=== PATIENT | female | born 1955 | race Caucasian/White ===

== ENCOUNTER → 2016-09-12 | Outpatient (CLI) | payer BC ==
[2016-09-12 12:57] LABS: Basophils % (A) 1 %; CH 29.9; CHCM 32.6; Eosinophils # (A) 0.1 k/uL (0-0.7); Eosinophils % (A) 2 %; HCT 38.5 % (34.0-46.0); HDW 2.26; HGB 12.3 gm/dL (11.4-16.0); Luc % (Auto) 2; Lymphocytes % (A) 40 %; MCH 29.5 pg (25.0-35.0); MCV 92.4 fL (80.0-100.0); Mean Platelet Volume 7.4; Monocytes # (A) 0.3 k/uL (0-1.0); Monocytes % (A) 5 %; Neutrophils # (A) 2.6 k/uL (1.3-7.7); Neutrophils % (A) 50 %; RBC 4.17 m/uL (3.80-5.40); RDW 12.1 % (11.5-15.5); WBC 5.1 k/uL (3.8-10.6); WBC (Perox) 5.54
[2016-09-12 13:26] LABS: Anion Gap 10 mmol/L; Blood Urea Nitrogen 7 mg/dL (7-17); Calcium 8.9 mg/dL (8.4-10.2); Carbon Dioxide 29 mmol/L (22-30); Chloride 103 mmol/L (98-107); Glucose 98 mg/dL (74-99); Non-African American GFR(MDRD) >60 (>60 ml/min/1.73 sqM); Sodium 142 mmol/L (137-145)
== END | disposition home or self-care (01) ==
LOC: LABPAT 12:08
PROVIDERS: ATTEND Obstetrics & Gynecology
DX: Z01.812 Encounter for preprocedural laboratory examination (principal)
CPT/HCPCS: 80048; 85025

== ENCOUNTER 2016-09-18 06:10 | Inpatient (IN) | payer BC ==
[2016-09-09 15:30] VITALS: BMI 30.5
--- NOTE | 2016-09-17 20:34 | P.HPOB ---
History of Present Illness H&P Date: 09/17/16 Chief Complaint: Uterine fibroids, pelvic pain This is a 60-year-old female 2 para 1 who presents for total abdominal hysterectomy with bilateral salpingo-oophorectomy secondary to uterine fibroids and pelvic pain. She has experienced intermittent pelvic pain over the last few months. This is described as a dull ache and pressure sensation. The pain is worse in the left lower quadrant. She did have an ultrasound that showed a uterus measuring 8.3 x 6.8 x 5 cm with multiple fibroids, the largest of which was 6 cm. She also does complain of some prolapse symptoms however her urinary leakage has stopped after she started taking Vesicare. Obstetrical history: . History of 1 vaginal delivery and 1 miscarriage. Gynecologic history: No history of sexual transmitted diseases. She is not currently sexual active. Social history: She is . 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 Review of Systems Constitutional: Denies chills, Denies fever Cardiovascular: Denies chest pain, Denies shortness of breath Respiratory: Denies cough Gastrointestinal: Denies abdominal pain, Denies diarrhea, Denies nausea, Denies vomiting Genitourinary: Reports pelvic pain Menstruation: Reports postmenopausal Psychiatric: Reports anxiety, Reports depression Past Medical History Past Medical History: GERD/Reflux, Osteoarthritis (OA) Additional Past Medical History / Comment(s): LARGE FIBROID TUMORS ; hiatal hernia History of Any Multi-Drug Resistant Organisms: None Reported Past Surgical History: Adenoidectomy, Cholecystectomy, Orthopedic Surgery, Tonsillectomy, Tubal Ligation Additional Past Surgical History / Comment(s): HAMMER TOE SURGERY; D&C Additional Past Anesthesia/Blood Transfusion Reaction / Comment(s): SEVERELY CLAUSTROPHIC Past Psychological History: Anxiety, Depression Smoking Status: Never smoker Past Alcohol Use History: Occasional Past Drug Use History: None Reported - Past Family History Mother Family Medical History: No Reported History Medications and Allergies Allergies Allergy/AdvReac Type Severity Reaction Status Date / Time oseltamivir phosphate Allergy Mild HIVES Verified 09/09/16 15:09 [From Tamiflu] vancomycin Allergy SOB AND Verified 09/09/16 15:10 HIVES Exam Osteopathic Statement: *. No significant issues noted on an osteopathic structural exam other than those noted in the History and Physical/Consult. HEENT: Within normal limits Heart: Regular rate and rhythm Lungs: Clear to auscultation bilaterally Abdomen: Soft, tender in left lower quadrant Pelvic exam: Uterus is slightly enlarged and tender on the left side. There is second-degree uterine prolapse. There is also third degree cystocele noted. No adnexal masses are palpated. Extremities: Negative Homans Assessment and Plan (1) Uterine fibroid Status: Acute (2) Pelvic pain Status: Acute Plan: Proceed with total abdominal hysterectomy with bilateral salpingo-oophorectomy. I have discussed the risks, benefits, and alternative therapies for the above- mentioned procedure and for both sedation/anesthesia as well as necessary blood products administration, if indicated, as they pertain to this patient. The patient has indicated her understanding and acceptance of the risks and procedures discussed.
[~2016-09-18 06:10] MED LIST: DEXAMETHASONE SOD PHOSPHATE 10 MG/ML 1 ML VIAL IV ONE; LIDOCAINE 1% 20 ML VIAL (10MG/ML) FOR IV START INTRADERMA PRN; MIDAZOLAM 2 MG/2 ML VIAL IV PRN; ONDANSETRON 4 MG/2 ML VIAL IVP ONE; SCOPOLAMINE 1.5MG/72HR PATCH TRANSDERM ONE; ceFAZolin 2 GM in SODIUM CHLORIDE 0.9% 100 ML IVPB ONE
[2016-09-18] MEDS: LACTATED RINGERS 1,000 ML IV SCH ×3 (07:02→21:27)
[2016-09-18] MEDS ORDERED: ROCURONIUM BROMIDE 10 MG/ML 10 ML VIAL IV ONE (07:28)
[2016-09-18] MEDS ORDERED: fentaNYL (PF) 50 MCG/ML 2 ML AMP ONE (07:28)
[2016-09-18] MEDS ORDERED: SUCCINYLCHOLINE CHLORIDE 100 MG/5 ML SYR IV ONE (07:28)
[2016-09-18] MEDS ORDERED: NEOSTIGMINE 1 MG/ML 10 ML VIAL ONE (07:28)
[2016-09-18] MEDS ORDERED: MIDAZOLAM 2 MG/2 ML VIAL ONE (07:28)
[2016-09-18] MEDS ORDERED: HYDROmorphone (PF) 1 MG/ML ONE (07:28)
[2016-09-18] MEDS ORDERED: KETOROLAC 30 MG/ML 1 ML VIAL ONE (07:28)
[2016-09-18] MEDS ORDERED: PROPOFOL 10 MG/ML 20 ML VIAL IV ONE (07:28)
[2016-09-18] MEDS ORDERED: ONDANSETRON 4 MG/2 ML VIAL ONE (07:28)
[2016-09-18] MEDS ORDERED: GLYCOPYRROLATE 0.2 MG/ML 2 ML VIAL ONE (07:28)
[2016-09-18] MEDS ORDERED: LACTATED RINGERS 1,000 ML IV ONE (08:07)
--- NOTE | 2016-09-18 08:39 | P.OP ---
Date of Procedure: 09/18/16 Preoperative Diagnosis: Pelvic pain, uterine fibroids Postoperative Diagnosis: Same Procedure(s) Performed: Total abdominal hysterectomy with bilateral salpingo-oophorectomy Anesthesia: AYLEEN Surgeon: Eileen Chacon Medical Specialist #1: Aman Ureña Estimated Blood Loss (ml): 75 Pathology: other (Uterus with cervix, bilateral tubes and ovaries) Condition: stable Disposition: floor Indications for Procedure: This is a 60-year-old female 2 para 1 who presents for total abdominal hysterectomy with bilateral salpingo-oophorectomy secondary to uterine fibroids and pelvic pain. She has experienced intermittent pelvic pain over the last few months. This is described as a dull ache and pressure sensation. The pain is worse in the left lower quadrant. She did have an ultrasound that showed a uterus measuring 8.3 x 6.8 x 5 cm with multiple fibroids, the largest of which was 6 cm. She also does complain of some prolapse symptoms however her urinary leakage has stopped after she started taking Vesicare. Operative Findings: Small atrophic ovaries are noted bilaterally. There are multiple uterine fibroids posteriorly. Description of Procedure: The patient is taken to the operating room where she is placed in the dorsal supine position. She is prepped and draped in the normal sterile fashion including Liu catheter insertion and vaginal prep. A Pfannenstiel skin incision is made with a scalpel. A second knife was used to carry the incision down to the underlying layer of fascia. The fascia was nicked in the midline with a scalpel and then extended laterally bilaterally with Busch scissors. The superior aspect of the fascial incision was grasped with Kayla clamps, elevated off the underlying rectus muscle in the midline and then cut with Busch scissors. The inferior aspect of the fascial incision was grasped with Kayla clamps, elevated off the underlying rectus muscle in the midline and then cut with Busch scissors. Next the peritoneum was identified and entered sharply with Busch scissors. It is extended superiorly and in fairly with Metzenbaum scissors with good visualization of underlying structures. Next the Pk retractor is placed in the bladder blade was inserted. The bowels were packed with a 3 yard laparotomy sponge. Next the uterus is brought up incision and the corneal regions are grasped with Meri clamps on both sides. The infundibulopelvic ligament was clamped on either side with a Echo clamp, cut with Busch scissors, and sutured with 0 Vicryl suture in Echo transfixion stitches. The remaining uterine ovarian ligament and round ligament was clamped on either side with a Echo clamp, cut with Busch scissors, and sutured with 0 Vicryl suture in Echo transfixion stitches. The vesicouterine peritoneum was sharply dissected away from the bladder with Metzenbaum scissors and pushed inferiorly. The uterine arteries are clamped on either side with a Echo clamp. The uterine arteries are then cut with Busch scissors, and sutured with 0 Vicryl suture in Echo transfixion stitches. Next the cardinal ligaments were clamped on either side with Echo clamp, cut with Busch scissors , and sutured with 0 Vicryl suture in Echo transfixion stitches. The uterosacral ligaments are clamped on either side with Echo clamps, cut with Busch scissors, and sutured with 0 Vicryl suture in Echo transfixion stitches on either side. The edges of the vaginal cuff were clamped on either side with a Echo clamp, cut with Busch scissors, and sutured with 0 Vicryl suture in Echo transfixion stitches and held on either side. The vaginal mucosa was then cut just below the level of the cervix and the specimen is removed from the field. The edges of the vaginal cuff were held with Kayla clamps. Next the previously held corners of each side of the vaginal cuff were then whipstitched along the connective tissue on either side and brought through the corner of the cuff and tied. Next the vaginal cuff was sutured with 0 Vicryl suture in a running locked fashion. Good hemostasis was noted. Copious irrigation is carried out with warm saline. Excellent hemostasis is noted. All sponges are removed from the abdomen and sponge counts are correct. The peritoneum is then closed with 0 Vicryl suture in a running fashion. The muscle was then reapproximated with 0 Vicryl suture in interrupted fashion. The fascia layer is then closed with 0 PDS suture in a running fashion with the knots buried on either side and in the midline. Next the subcutaneous tissues closed with 2-0 Vicryl suture in a running fashion. The skin is closed with nicole. All sponge and needle counts are correct and the patient is taken to recovery room in stable condition.
[2016-09-18] MEDS: HYDROmorphone 1 MG/ML 1 ML SYRINGE IVP PRN ×3 (09:00→09:35)
[2016-09-18] MEDS ORDERED: HYDROcodone/APAP 5-325MG 1 EACH TAB PO PRN ×2 (09:51→10:06)
[2016-09-18] MEDS ORDERED: SIMETHICONE 80 MG CHEWABLE PO PRN (09:51)
[2016-09-18] MEDS ORDERED: METOCLOPRAMIDE 5 MG/ML 2 ML VIAL IVP PRN (09:51)
[2016-09-18] MEDS ORDERED: diphenhydrAMINE 50 MG/ML 1 ML VIAL IVP PRN (09:51)
[2016-09-18] MEDS ORDERED: NALOXONE 0.4 MG/ML 1 ML VIAL IV PRN (09:51)
[2016-09-18] MEDS: HYDROmorphone PCA 5 MG/25 ML SYRINGE IV PRN ×2 (11:09→22:17)
[2016-09-18] MEDS: SENNOSIDES-DOCUSATE SODIUM 1 EACH TAB PO SCH ×2 (12:13→21:23)
[2016-09-18] MEDS: KETOROLAC 30 MG/ML 1 ML VIAL IVP PRN ×2 (15:11→21:23)
[2016-09-18] MEDS ORDERED: LACTATED RINGERS 500 ML IV SCH (19:00)
[2016-09-18] MEDS: ESCITALOPRAM 20 MG TAB PO SCH (21:27)
[2016-09-19] MEDS: KETOROLAC 30 MG/ML 1 ML VIAL IVP PRN ×3 (04:02→18:52)
[2016-09-19] MEDS: ONDANSETRON 4 MG/2 ML VIAL IVP PRN ×2 (04:03→21:21)
[2016-09-19] MEDS: LACTATED RINGERS 1,000 ML IV SCH ×4 (07:21→22:16)
[2016-09-19] MEDS ORDERED: ACETAMINOPHEN TAB 325 MG TAB PO PRN (07:29)
[2016-09-19] MEDS: SENNOSIDES-DOCUSATE SODIUM 1 EACH TAB PO SCH ×2 (08:15→21:23)
[2016-09-19] MEDS: PANTOPRAZOLE 40 MG TABLET PO SCH (08:15)
--- NOTE | 2016-09-19 08:42 | P.PN ---
Subjective Principal diagnosis: Status post total abdominal hysterectomy with bilateral salpingo-oophorectomy postoperative day #1 Patient complains of some fatigue. She has been up in the room couple times but not ambulating the halls yet. She is passing some flatus but no bowel movement yet. Her catheter was just removed this morning and she has not urinated yet. She did have some decreased urine output earlier in the day yesterday that was resolved with fluid bolus. Pain is fairly well controlled with her AUTO EMISSIONS TECHNICIAN pump. Minimal vaginal bleeding is noted. Objective - Vital Signs Vital signs: Vital Signs Temp 98.3 F 09/19/16 08:00 Pulse 68 09/19/16 08:00 Resp 16 09/19/16 08:00 BP 99/59 09/19/16 08:00 Pulse Ox 93 L 09/19/16 08:00 Intake & Output 09/18/16 09/19/16 09/19/16 18:59 06:59 18:59 Intake Total 2140 Output Total 275 450 Balance 1865 -450 Weight 88.451 kg Intake: IV 1800 Oral 340 Output: Urine 200 450 Uretheral (Liu) 450 Estimated Blood Loss 75 Other: Voiding Method Indwelling Catheter Indwelling Catheter Toilet - Constitutional General appearance: Present: no acute distress - Gastrointestinal Gastrointestinal Comment(s): Incision is clean dry and intact with nicole in place. General gastrointestinal: Present: normal bowel sounds, soft. Absent: tenderness - Musculoskeletal Musculoskeletal Comment(s): Extremities show negative Homans. Assessment and Plan (1) Uterine fibroid Status: Acute (2) Pelvic pain Status: Acute Plan: Impression is status post LUZ/BSO postoperative day #1. Plan is to encourage ambulation and fluid intake. AUTO EMISSIONS TECHNICIAN will be discontinued later today and she will be switched [place]. She will continue Toradol while she still has IV access.
[2016-09-19 09:02] LABS: Basophils % (A) 0 %; CH 29.9; CHCM 32.2; Eosinophils % (A) 0 %; Luc # (Auto) 0.06; Luc % (Auto) 1; Lymphocytes # (A) 1.6 k/uL (1.0-4.8); Lymphocytes % (A) 20 %; MCH 30.1 pg (25.0-35.0); MCHC 32.3 g/dL (31.0-37.0); MCV 93.2 fL (80.0-100.0); Mean Platelet Volume 7.5; Monocytes # (A) 0.4 k/uL (0-1.0); Monocytes % (A) 5 %; Neutrophils % (A) 74 %; RBC 3.22 m/uL (3.80-5.40); RDW 12.1 % (11.5-15.5); WBC 8.1 k/uL (3.8-10.6); WBC (Perox) 8.78
[2016-09-19 09:04] LABS: HGB 9.7 gm/dL (11.4-16.0)
[2016-09-19] MEDS: HYDROcodone/APAP 5-325MG 1 EACH TAB PO PRN (18:53)
[2016-09-19] MEDS: ESCITALOPRAM 20 MG TAB PO SCH (21:23)
[2016-09-20] MEDS: HYDROcodone/APAP 5-325MG 1 EACH TAB PO PRN ×4 (03:43→21:38)
[2016-09-20] MEDS: KETOROLAC 30 MG/ML 1 ML VIAL IVP PRN (03:44)
[2016-09-20] MEDS: LACTATED RINGERS 1,000 ML IV SCH ×2 (04:16→20:46)
--- NOTE | 2016-09-20 06:50 | P.PN ---
Progress Note - Text Postoperative day #2. Patient is resting without complaints. Vital signs are stable, she is afebrile. Urine output is excellent. Incision is intact and dry. CBC was reviewed admitted yesterday by Dr. Chacon and appears normal for postop hysterectomy. Patient is tolerating just soft foods and is having adequate pain control. Patient is urinating without difficulty and ambulating. Plan today is to allow the patient to shower, advanced to a regular diet, and encourage more ambulation. Patient wishes to be discharged home tomorrow.
[2016-09-20] MEDS: PANTOPRAZOLE 40 MG TABLET PO SCH (09:48)
[2016-09-20] MEDS: SENNOSIDES-DOCUSATE SODIUM 1 EACH TAB PO SCH ×2 (09:48→21:27)
[2016-09-20] MEDS ORDERED: KETOROLAC 30 MG/ML 1 ML VIAL IVP PRN (13:42)
[2016-09-20] MEDS: ESCITALOPRAM 20 MG TAB PO SCH (21:27)
[2016-09-20 23:21] VITALS: PULSE 68; RESP 16
[2016-09-21] MEDS: LACTATED RINGERS 1,000 ML IV SCH (04:40)
[2016-09-21] MEDS: HYDROcodone/APAP 5-325MG 1 EACH TAB PO PRN ×2 (04:48→10:47)
[2016-09-21] MEDS: PANTOPRAZOLE 40 MG TABLET PO SCH (07:33)
[2016-09-21] MEDS: SENNOSIDES-DOCUSATE SODIUM 1 EACH TAB PO SCH (07:33)
--- NOTE | 2016-09-21 07:37 | P.PN ---
Progress Note - Text Postoperative day #3. Patient is resting without complaints. Vital signs are stable and she is afebrile. Incision is intact and dry. Patient is tolerating regular diet, ambulating, urinating without difficulty. Patient is adequate pain control. My impression is a normal postoperative course. Plan is to continue routine postoperative care and discharge home today.
--- NOTE | 2016-09-21 07:39 | P.DS ---
Providers Date of admission: 09/18/16 06:10 Expected date of discharge: 09/21/16 Attending physician: Eileen Chacon Primary care physician: Stated None - Discharge Diagnosis(es) (1) Uterine fibroid Current Visit: Yes Status: Acute Hospital Course: Please see dictated H&P per Dr. Chacon on this patient's admission. Brief summary this is a pleasant 60-year-old who is admitted to the hospital for total abdominal hysterectomy and bilateral salpingo-oophorectomy secondary to pelvic pain and uterine fibroids. Patient is admitted has above-named surgery. By postoperative 3 patient's felt be stable for discharge home follow up with Dr. Chacon in 1 week. Procedures: Total abdominal hysterectomy and bilateral partial salpingectomy. Patient Condition at Discharge: Good Plan - Discharge Summary New Discharge Prescriptions: HYDROcodone/APAP 5-325MG [[place] 5-325] 1 each PO Q4HR PRN #30 tab PRN Reason: Pain Discharge Medication List Ondansetron Odt [Zofran ODT] 4 mg PO Q8HR PRN #10 tab 12/26/15 [Rx] Escitalopram [Lexapro] 20 mg PO HS 09/18/16 [History] LORazepam [Ativan] 1 mg PO DAILY PRN 09/18/16 [History] Omeprazole [PriLOSEC] 20 mg PO DAILY 09/18/16 [History] HYDROcodone/APAP 5-325MG [[place] 5-325] 1 each PO Q4HR PRN #30 tab 09/19/16 [Rx] Follow up Appointment(s)/Referral(s): Eileen Chacon DO [Doctor of Osteopathic Medicine] - 1 Week Activity/Diet/Wound Care/Special Instructions: Activity as tolerated. No heavy lifting. May shower, but no tub baths for 1 week. No intercourse. Diet as tolerated. Discharge Disposition: HOME SELF-CARE
[2016-09-21 08:17] VITALS: BP 113/58; TEMP 98.2
== END 2016-09-21 14:43 | disposition home or self-care (01) | DRG 743 ==
LOC: 2ORMAIN 06:10 → 6PED 08:31
PROVIDERS: ADMIT Obstetrics & Gynecology; ATTEND Obstetrics & Gynecology
PROC: 0UT20ZZ Resection of Bilateral Ovaries, Open Approach (ICD-10-PCS; principal; 2016-09-18 07:30)
PROC: 0UT70ZZ Resection of Bilateral Fallopian Tubes, Open Approach (ICD-10-PCS; principal; 2016-09-18 07:30)
PROC: 0UTC0ZZ Resection of Cervix, Open Approach (ICD-10-PCS; principal; 2016-09-18 07:30)
PROC: 0UT90ZZ Resection of Uterus, Open Approach (ICD-10-PCS; principal; 2016-09-18 07:30)
DX: D25.9 Leiomyoma of uterus, unspecified (principal); F32.9 Major depressive disorder, single episode, unspecified; F41.9 Anxiety disorder, unspecified; K21.9 Gastro-esophageal reflux disease without esophagitis; N83.311 Acquired atrophy of right ovary; N83.312 Acquired atrophy of left ovary; Z79.899 Other long term (current) drug therapy
CPT/HCPCS: 80048; 85025; 86850; 86900; 86901; 88307

== ENCOUNTER 2018-01-19 03:58 | Emergency (ER) | payer BC, OTHER ==
[2018-01-19 04:34] LABS: Basophils % (A) 1 %; Eosinophils # (A) 0.1 k/uL (0-0.7); Eosinophils % (A) 2 %; HCT 33.1 % (34.0-46.0); HGB 10.9 gm/dL (11.4-16.0); Lymphocytes # (A) 1.5 k/uL (1.0-4.8); Lymphocytes % (A) 20 %; MCH 29.9 pg (25.0-35.0); MCV 90.4 fL (80.0-100.0); Mean Platelet Volume 7.6; Monocytes # (A) 0.5 k/uL (0-1.0); Monocytes % (A) 7 %; Neutrophils # (A) 5.3 k/uL (1.3-7.7); Neutrophils % (A) 69 %; Platelet Count 279 k/uL (150-450); RBC 3.66 m/uL (3.80-5.40); RDW 12.2 % (11.5-15.5); WBC 7.6 k/uL (3.8-10.6)
[2018-01-19 04:45] LABS: ALT 133 U/L (9-52); AST 284 U/L (14-36); Albumin 3.8 g/dL (3.5-5.0); Alkaline Phosphatase 118 U/L (38-126); Amylase 47 U/L (30-110); Anion Gap 11 mmol/L; Blood Urea Nitrogen 15 mg/dL (7-17); Calcium 9.1 mg/dL (8.4-10.2); Carbon Dioxide 28 mmol/L (22-30); Chloride 106 mmol/L (98-107); Glucose 98 mg/dL (74-99); Lipase 133 U/L (23-300); Potassium 3.7 mmol/L (3.5-5.1); Sodium 145 mmol/L (137-145); Total Protein 7.8 g/dL (6.3-8.2)
[2018-01-19 04:53] LABS: Creatine Kinase 529 U/L (30-135)
[2018-01-19] MEDS ORDERED: ONDANSETRON 4 MG/2 ML VIAL IVP STA (04:59)
[2018-01-19 05:07] LABS: Creatine Kinase MB 5.2 ng/mL (0.0-2.4); Troponin I <0.012 ng/mL (0.000-0.034)
[2018-01-19 05:30] LABS: Appearance,Urine Cloudy (Clear); Bilirubin,Urine Negative (Negative); Blood,Urine Large (Negative); Color,Urine Yellow; Glucose,Urine (UA) Negative (Negative); Ketones,Urine Negative (Negative); Leukocyte Esterase,Urine Moderate (Negative); Mucus,Urine Many /hpf; Nitrite,Urine Negative (Negative); Protein,Urine 1+ (Negative); RBC,Urine 13 /hpf (0-5); Specific Gravity,Urine 1.018 (1.001-1.035); Squamous Epithelial Cell,Urine 8 /hpf (0-4); WBC,Urine 14 /hpf (0-5)
--- NOTE | 2018-01-19 05:36 | XR ---
EXAM: XR Abdomen, 2 Views CLINICAL HISTORY: Pain. TECHNIQUE: Frontal upright view of the abdomen/pelvis. Two images were obtained. COMPARISON: No relevant prior studies available. FINDINGS: Intraperitoneal space: No evidence of free air. Gastrointestinal tract: Nonspecific and nonobstructive bowel gas pattern. Bones/joints: Osseous structures appear intact. Other: Cholecystectomy clips in the right upper quadrant. IMPRESSION: 1. Nonspecific and nonobstructive bowel gas pattern. 2. Surgical clips in the right upper quadrant compatible with cholecystectomy.
[2018-01-19] MEDS ORDERED: MORPHINE SULFATE 4 MG/ML SYRINGE IV STA ×2 (06:17→09:04)
[2018-01-19] MEDS ORDERED: MAG HYDROX/AL HYDROX/SIMETH 30 ML, HYOSCYAMINE ELIXIR 10 ML, CIMETIDINE HCL 300 MG, LID... PO STA ×4 (06:17)
--- NOTE | 2018-01-19 06:20 | ED ---
Abdominal Pain HPI - General Chief Complaint: Abdominal Pain Stated Complaint: Abdominal Pain Time Seen by Provider: 01/19/18 04:58 Source: patient Mode of arrival: EMS Limitations: no limitations - History of Present Illness Initial Comments: This patient is a 62-year-old woman with just under one week of epigastric abdominal pain that she is describing as aching and cramping. She also has had a number of episodes of nausea and vomiting. Patient states that the pain seemed to be getting progressively worse. Tonight it became severe. She has not discovered any relieving factors but states that its sometimes worse with food and has limited her intake. MD Complaint: abdominal pain Onset/Timin -: days(s) Location: epigastric Radiation: none Migration to: no migration Severity: moderate Quality: cramping Consistency: constant Improves With: nothing Worsens With: nothing Associated Symptoms: nausea, vomiting - Related Data Home Medications Medication Instructions Recorded Confirmed Escitalopram [Lexapro] 20 mg PO HS 09/18/16 09/18/16 LORazepam [Ativan] 1 mg PO DAILY PRN 09/18/16 09/18/16 Omeprazole [PriLOSEC] 20 mg PO DAILY 09/18/16 09/18/16 Previous Rx's Medication Instructions Recorded Ondansetron Odt [Zofran ODT] 4 mg PO Q8HR PRN #10 tab 12/26/15 HYDROcodone/APAP 5-325MG [[place] 1 each PO Q4HR PRN #30 tab 09/19/16 5-325] Dicyclomine [Bentyl] 20 mg PO QID #15 tablet 01/19/18 Famotidine [Pepcid] 20 mg PO BID #14 tablet 01/19/18 Nitrofurantoin Monohyd/M-Cryst 100 mg PO Q12HR #6 cap 01/19/18 [Macrobid] Ondansetron Odt [Zofran ODT] 4 mg PO Q8HR PRN #10 tab 01/19/18 Allergies Allergy/AdvReac Type Severity Reaction Status Date / Time oseltamivir phosphate Allergy Mild HIVES Verified 01/19/18 07:29 [From Tamiflu] vancomycin Allergy SOB AND Verified 01/19/18 07:29 HIVES Review of Systems ROS Statement: Those systems with pertinent positive or pertinent negative responses have been documented in the HPI. ROS Other: All systems not noted in ROS Statement are negative. Constitutional: Denies: fever, chills Respiratory: Denies: cough, dyspnea Cardiovascular: Denies: chest pain, palpitations Gastrointestinal: Reports: abdominal pain, nausea, vomiting. Denies: diarrhea, constipation Genitourinary: Denies: dysuria, hematuria Musculoskeletal: Denies: back pain Skin: Denies: rash Neurological: Denies: headache, weakness, numbness Past Medical History Past Medical History: Cancer Additional Past Medical History / Comment(s): LARGE FIBROID TUMORS History of Any Multi-Drug Resistant Organisms: None Reported Past Surgical History: Cholecystectomy Additional Past Surgical History / Comment(s): HAMMER TOE SURGERY Additional Past Anesthesia/Blood Transfusion Reaction / Comment(s): SEVERELY CLAUSTROPHIC Past Psychological History: Anxiety, Depression Smoking Status: Never smoker Past Alcohol Use History: None Reported Past Drug Use History: None Reported - Past Family History Mother Family Medical History: No Reported History Father Family Medical History: No Reported History General Exam Limitations: no limitations General appearance: alert, in no apparent distress Head exam: Present: atraumatic, normocephalic Eye exam: Present: normal appearance. Absent: scleral icterus, conjunctival injection Neck exam: Present: normal inspection Respiratory exam: Present: normal lung sounds bilaterally. Absent: respiratory distress, wheezes, rales, rhonchi, stridor Cardiovascular Exam: Present: regular rate, normal rhythm, normal heart sounds. Absent: systolic murmur, diastolic murmur, rubs, gallop GI/Abdominal exam: Present: soft, normal bowel sounds. Absent: distended, tenderness, guarding, rebound, rigid, mass, pulsatile mass, hernia Extremities exam: Present: normal inspection, normal capillary refill. Absent: pedal edema, calf tenderness Back exam: Present: normal inspection. Absent: CVA tenderness (R), CVA tenderness (L) Neurological exam: Present: alert Skin exam: Present: warm, dry, intact, normal color. Absent: rash Course Vital Signs 01/19/18 01/19/18 01/19/18 04:00 05:48 06:47 Temperature 99.2 F Pulse Rate 91 76 66 Respiratory 18 18 18 Rate Blood Pressure 212/95 190/95 162/80 O2 Sat by Pulse 95 97 94 L Oximetry 01/19/18 07:19 Temperature 98.0 F Pulse Rate 64 Respiratory 16 Rate Blood Pressure 168/82 O2 Sat by Pulse 94 L Oximetry Medical Decision Making - Lab Data Result diagrams: 01/19/18 04:15 01/19/18 04:15 Lab Results 01/19/18 01/19/18 01/19/18 Range/Units 04:15 04:15 04:15 WBC 7.6 (3.8-10.6) k/uL RBC 3.66 L (3.80-5.40) m/uL Hgb 10.9 L (11.4-16.0) gm/dL Hct 33.1 L (34.0-46.0) % MCV 90.4 (80.0-100.0) fL MCH 29.9 (25.0-35.0) pg MCHC 33.0 (31.0-37.0) g/dL RDW 12.2 (11.5-15.5) % Plt Count 279 (150-450) k/uL Neutrophils % 69 % Lymphocytes % 20 % Monocytes % 7 % Eosinophils % 2 % Basophils % 1 % Neutrophils # 5.3 (1.3-7.7) k/uL Lymphocytes # 1.5 (1.0-4.8) k/uL Monocytes # 0.5 (0-1.0) k/uL Eosinophils # 0.1 (0-0.7) k/uL Basophils # 0.0 (0-0.2) k/uL Sodium 145 (137-145) mmol/L Potassium 3.7 (3.5-5.1) mmol/L Chloride 106 (98-107) mmol/L Carbon Dioxide 28 (22-30) mmol/L Anion Gap 11 mmol/L BUN 15 (7-17) mg/dL Creatinine 0.78 (0.52-1.04) mg/dL Est GFR (CKD-EPI)AfAm >90 (>60 ml/min/1.73 sqM) Est GFR (CKD-EPI)NonAf 81 (>60 ml/min/1.73 sqM) Glucose 98 (74-99) mg/dL Calcium 9.1 (8.4-10.2) mg/dL Total Bilirubin 1.0 (0.2-1.3) mg/dL AST 284 H (14-36) U/L ALT 133 H (9-52) U/L Alkaline Phosphatase 118 (38-126) U/L Total Creatine Kinase 529 H (30-135) U/L CK-MB (CK-2) 5.2 H* (0.0-2.4) ng/mL CK-MB (CK-2) Rel Index 1.0 Troponin I <0.012 (0.000-0.034) ng/mL Total Protein 7.8 (6.3-8.2) g/dL Albumin 3.8 (3.5-5.0) g/dL Amylase 47 (30-110) U/L Lipase 133 (23-300) U/L Urine Color Urine Appearance (Clear) Urine pH (5.0-8.0) Ur Specific [place] (1.001-1.035) Urine Protein (Negative) Urine Glucose (UA) (Negative) Urine Ketones (Negative) Urine Blood (Negative) Urine Nitrite (Negative) Urine Bilirubin (Negative) Urine Urobilinogen (<2.0) mg/dL Ur Leukocyte Esterase (Negative) Urine RBC (0-5) /hpf Urine WBC (0-5) /hpf Ur Squamous Epith Cells (0-4) /hpf Urine Mucus (None) /hpf 01/19/18 Range/Units 05:13 WBC (3.8-10.6) k/uL RBC (3.80-5.40) m/uL Hgb (11.4-16.0) gm/dL Hct (34.0-46.0) % MCV (80.0-100.0) fL MCH (25.0-35.0) pg MCHC (31.0-37.0) g/dL RDW (11.5-15.5) % Plt Count (150-450) k/uL Neutrophils % % Lymphocytes % % Monocytes % % Eosinophils % % Basophils % % Neutrophils # (1.3-7.7) k/uL Lymphocytes # (1.0-4.8) k/uL Monocytes # (0-1.0) k/uL Eosinophils # (0-0.7) k/uL Basophils # (0-0.2) k/uL Sodium (137-145) mmol/L Potassium (3.5-5.1) mmol/L Chloride (98-107) mmol/L Carbon Dioxide (22-30) mmol/L Anion Gap mmol/L BUN (7-17) mg/dL Creatinine (0.52-1.04) mg/dL Est GFR (CKD-EPI)AfAm (>60 ml/min/1.73 sqM) Est GFR (CKD-EPI)NonAf (>60 ml/min/1.73 sqM) Glucose (74-99) mg/dL Calcium (8.4-10.2) mg/dL Total Bilirubin (0.2-1.3) mg/dL AST (14-36) U/L ALT (9-52) U/L Alkaline Phosphatase (38-126) U/L Total Creatine Kinase (30-135) U/L CK-MB (CK-2) (0.0-2.4) ng/mL CK-MB (CK-2) Rel Index Troponin I (0.000-0.034) ng/mL Total Protein (6.3-8.2) g/dL Albumin (3.5-5.0) g/dL Amylase (30-110) U/L Lipase (23-300) U/L Urine Color Yellow Urine Appearance Cloudy H (Clear) Urine pH 6.0 (5.0-8.0) Ur Specific [place] 1.018 (1.001-1.035) Urine Protein 1+ H (Negative) Urine Glucose (UA) Negative (Negative) Urine Ketones Negative (Negative) Urine Blood Large H (Negative) Urine Nitrite Negative (Negative) Urine Bilirubin Negative (Negative) Urine Urobilinogen 2.0 (<2.0) mg/dL Ur Leukocyte Esterase Moderate H (Negative) Urine RBC 13 H (0-5) /hpf Urine WBC 14 H (0-5) /hpf Ur Squamous Epith Cells 8 H (0-4) /hpf Urine Mucus Many H (None) /hpf - EKG Data -: EKG Interpreted by Me EKG shows normal: sinus rhythm, axis (Normal), intervals (Normal), QRS complexes (Normal), ST-T waves (Normal) Rate: normal (Rate 86 bpm) Interpretation: normal EKG Disposition Clinical Impression: Abdominal pain Disposition: HOME SELF-CARE Condition: Good Instructions: Abdominal Pain (ED) Prescriptions: Dicyclomine [Bentyl] 20 mg PO QID #15 tablet Famotidine [Pepcid] 20 mg PO BID #14 tablet Nitrofurantoin Monohyd/M-Cryst [Macrobid] 100 mg PO Q12HR #6 cap Ondansetron Odt [Zofran ODT] 4 mg PO Q8HR PRN #10 tab PRN Reason: Nausea Is patient prescribed a controlled substance at d/c from ED?: No Referrals: Domenico Cruz MD [Primary Care Provider] - 1-2 days
[2018-01-19 07:35] VITALS: TEMP 98
[2018-01-19] MEDS ORDERED: RX INFO: IV CONTRAST WAS GIVEN 1 EACH MISC MISCELLANE PRN (08:19)
--- NOTE | 2018-01-19 09:11 | CT ---
EXAMINATION TYPE: CT abdomen pelvis w con DATE OF EXAM: 01/19/2018 HISTORY: Nausea vomiting and epigastric pain for over 5 days. Possible history of multiple myeloma. CT DLP: 1727mGycm Automated Exposure Control for Dose Reduction was Utilized. CONTRAST: CT scan of the abdomen and pelvis is performed without oral but with IV Contrast, patient injected wi th 100 mL of Isovue 300. COMPARISON: CT abdomen and pelvis December 26, 2015 FINDINGS: LUNG BASES: Dependent atelectasis in both bases is present. LIVER/GB: Cholecystectomy clips are redemonstrated. There is new mild periportal edema which is nonsp ecific finding. PANCREAS: No significant abnormality is seen. SPLEEN: No significant abnormality is seen. ADRENALS: No significant abnormality is seen. KIDNEYS: There is 1.0 cm lesion laterally lower pole level right kidney seen best series 7 image 44 t oo small to further characterize per presumed benign. BOWEL: Evaluation bowel slightly suboptimal secondary to lack of enteric contrast. Stable small hiata l hernia. Stomach is poorly distended and thus suboptimally evaluated. There is no suspicious small o r large bowel dilatation. There are scattered diverticula throughout the colon most prominent in the sigmoid colon. There is no CT evidence for acute diverticulitis. UTERUS/ADNEXA: Uterus is now surgically absent. LYMPH NODES: No greater than 1cm abdominal or pelvic lymph nodes are appreciated. OSSEOUS STRUCTURES: Underlying dextroconvex scoliosis centered at L2 vertebra is redemonstrated. Ther e is facet arthropathy lower lumbar levels. OTHER: There is mild calcific plaque of aorta extending into branch vessels. IMPRESSION: No bowel obstruction is seen. No significant acute finding is identified to account for p atient's symptoms. Interval hysterectomy changes noted.
[2018-01-19 10:03] VITALS: BP 174/84; PULSE 74; RESP 18
== END 2018-01-19 10:01 | disposition home or self-care (01) ==
LOC: EC 03:58
DX: R10.13 Epigastric pain (principal); R11.2 Nausea with vomiting, unspecified; F32.9 Major depressive disorder, single episode, unspecified; F41.9 Anxiety disorder, unspecified; Z79.899 Other long term (current) drug therapy; Z88.1 Allergy status to other antibiotic agents; Z88.8 Allergy status to other drugs, medicaments and biological substances; Z90.49 Acquired absence of other specified parts of digestive tract
CPT/HCPCS: 36415; 93005; 80053; 82150; 82550; 82553; 83690; 84484; 85025; 81001; 74018; 74177; 99285; 96374; 96375; 96376; J2270; J2405; Q9967

== ENCOUNTER 2018-01-19 19:49 | Inpatient (IN) | payer OTHER ==
[2018-01-19] MEDS ORDERED: MORPHINE SULFATE 4 MG/ML SYRINGE IV STA (21:04)
[2018-01-19] MEDS ORDERED: KETOROLAC 30 MG/ML 1 ML VIAL IVP STA (21:04)
[2018-01-19] MEDS ORDERED: ONDANSETRON 4 MG/2 ML VIAL IVP STA (21:04)
[2018-01-19] MEDS ORDERED: SODIUM CHLORIDE 0.9% 1,000 ML IV STA ×2 (21:04)
[2018-01-19 21:37] LABS: Basophils # (A) 0.1 k/uL (0-0.2); Basophils % (A) 1 %; Eosinophils # (A) 0.1 k/uL (0-0.7); Eosinophils % (A) 1 %; HCT 33.9 % (34.0-46.0); HGB 11.2 gm/dL (11.4-16.0); Lymphocytes # (A) 0.9 k/uL (1.0-4.8); Lymphocytes % (A) 12 %; MCH 29.9 pg (25.0-35.0); MCV 90.5 fL (80.0-100.0); Mean Platelet Volume 7.1; Monocytes # (A) 0.4 k/uL (0-1.0); Monocytes % (A) 6 %; Neutrophils % (A) 80 %; Platelet Count 271 k/uL (150-450); RBC 3.75 m/uL (3.80-5.40); RDW 12.2 % (11.5-15.5); WBC 7.5 k/uL (3.8-10.6)
--- NOTE | 2018-01-19 21:38 | ED ---
Abdominal Pain HPI - General Chief Complaint: Abdominal Pain Stated Complaint: abdominal pain-revisit Time Seen by Provider: 01/19/18 20:43 Source: patient, RN notes reviewed, old records reviewed Mode of arrival: wheelchair Limitations: no limitations - History of Present Illness Initial Comments: This patient's a 62-year-old female presents to the emergency Department chief complaint of epigastric abdominal pain. She was evaluated early this morning. Patient reports that she's was having episodes of nausea and vomiting. Also reported some green diarrhea. Patient states that the pain is mainly in the right upper quadrant. History of cholecystectomy. She states that she has no history of sick contacts. No recent antibiotic use. - Related Data Home Medications Medication Instructions Recorded Confirmed LORazepam [Ativan] 1 mg PO TID 09/18/16 01/19/18 Omeprazole [PriLOSEC] 20 mg PO DAILY 09/18/16 01/19/18 Ergocalciferol (Vitamin D2) 1 cap PO Q7D 01/19/18 01/19/18 [Vitamin D2] Sertraline [Zoloft] 200 mg PO DAILY 01/19/18 01/19/18 Previous Rx's Medication Instructions Recorded Dicyclomine [Bentyl] 20 mg PO QID #15 tablet 01/19/18 Famotidine [Pepcid] 20 mg PO BID #14 tablet 01/19/18 Nitrofurantoin Monohyd/M-Cryst 100 mg PO Q12HR #6 cap 01/19/18 [Macrobid] Ondansetron Odt [Zofran ODT] 4 mg PO Q8HR PRN #10 tab 01/19/18 Allergies Allergy/AdvReac Type Severity Reaction Status Date / Time oseltamivir phosphate Allergy Mild HIVES Verified 01/19/18 20:47 [From Tamiflu] vancomycin Allergy SOB AND Verified 01/19/18 20:47 HIVES Review of Systems ROS Statement: Those systems with pertinent positive or pertinent negative responses have been documented in the HPI. ROS Other: All systems not noted in ROS Statement are negative. Past Medical History Past Medical History: Cancer Additional Past Medical History / Comment(s): LARGE FIBROID TUMORS History of Any Multi-Drug Resistant Organisms: None Reported Past Surgical History: Cholecystectomy Additional Past Surgical History / Comment(s): HAMMER TOE SURGERY Additional Past Anesthesia/Blood Transfusion Reaction / Comment(s): SEVERELY CLAUSTROPHIC Past Psychological History: Anxiety, Depression Smoking Status: Never smoker Past Alcohol Use History: None Reported Past Drug Use History: None Reported - Past Family History Mother Family Medical History: No Reported History Father Family Medical History: No Reported History General Exam - General Exam Comments Initial Comments: 62-year-old female. Alert. Does appear in moderate discomfort. Limitations: no limitations General appearance: alert, in no apparent distress Head exam: Present: atraumatic, normocephalic, normal inspection Eye exam: Present: normal appearance, PERRL, EOMI. Absent: scleral icterus, conjunctival injection, periorbital swelling ENT exam: Present: normal exam, mucous membranes moist Neck exam: Present: normal inspection. Absent: tenderness, meningismus, lymphadenopathy Respiratory exam: Present: normal lung sounds bilaterally. Absent: respiratory distress, wheezes, rales, rhonchi, stridor Cardiovascular Exam: Present: regular rate, normal rhythm, normal heart sounds. Absent: systolic murmur, diastolic murmur, rubs, gallop, clicks GI/Abdominal exam: Present: soft, tenderness (Epigastric and right upper quadrant tenderness.), normal bowel sounds. Absent: distended, guarding, rebound, rigid Extremities exam: Present: normal inspection, full ROM, normal capillary refill. Absent: tenderness, pedal edema, joint swelling, calf tenderness Back exam: Present: normal inspection Neurological exam: Present: alert, oriented X3, CN II-XII intact Psychiatric exam: Present: normal affect, normal mood Course Vital Signs 01/19/18 01/19/18 01/19/18 19:53 20:45 23:22 Temperature 98.5 F 99.4 F Pulse Rate 88 70 72 Respiratory 18 16 16 Rate Blood Pressure 192/88 198/91 196/92 O2 Sat by Pulse 98 98 96 Oximetry 01/20/18 00:02 Temperature Pulse Rate 67 Respiratory 19 Rate Blood Pressure 175/81 O2 Sat by Pulse 98 Oximetry Medical Decision Making - Medical Decision Making Patient is a 62-year-old female for reevaluation of right upper quadrant abdominal pain, nausea and vomiting. She arrived with hypertensive emergency 192/100. She was given pain medication and she doesn't appear in moderate discomfort. Patient blood pressure continue to be elevated she was given IV labetalol. Patient labwork shows a significant elevation in transaminases. There is a markedly difference between the lab work she had at 5 AM this morning. She also had an increased bilirubin of 2.3. She does have a history of cholecystectomy. I did do a right upper quadrant ultrasound to check liver and common bile duct. Common bile duct was within normal limits. She does continue to feel nauseous and have severe abdominal pain. Patient did have a CT abdomen and pelvis with contrast earlier today which was reviewed and unremarkable. Jannette the Patient at this time for elevated transaminases. Hepatitis panel is currently pending. Will have the GI evaluate the Patient. - Lab Data Result diagrams: 01/19/18 20:50 01/19/18 20:50 Lab Results 01/19/18 01/19/18 01/19/18 Range/Units 20:50 20:50 20:50 WBC 7.5 (3.8-10.6) k/uL RBC 3.75 L (3.80-5.40) m/uL Hgb 11.2 L (11.4-16.0) gm/dL Hct 33.9 L (34.0-46.0) % MCV 90.5 (80.0-100.0) fL MCH 29.9 (25.0-35.0) pg MCHC 33.0 (31.0-37.0) g/dL RDW 12.2 (11.5-15.5) % Plt Count 271 (150-450) k/uL Neutrophils % 80 % Lymphocytes % 12 % Monocytes % 6 % Eosinophils % 1 % Basophils % 1 % Neutrophils # 6.0 (1.3-7.7) k/uL Lymphocytes # 0.9 L (1.0-4.8) k/uL Monocytes # 0.4 (0-1.0) k/uL Eosinophils # 0.1 (0-0.7) k/uL Basophils # 0.1 (0-0.2) k/uL PT (9.0-12.0) sec INR (<1.2) APTT (22.0-30.0) sec Sodium 140 (137-145) mmol/L Potassium 3.6 (3.5-5.1) mmol/L Chloride 101 (98-107) mmol/L Carbon Dioxide 28 (22-30) mmol/L Anion Gap 11 mmol/L BUN 14 (7-17) mg/dL Creatinine 0.80 (0.52-1.04) mg/dL Est GFR (CKD-EPI)AfAm >90 (>60 ml/min/1.73 sqM) Est GFR (CKD-EPI)NonAf 78 (>60 ml/min/1.73 sqM) Glucose 115 H (74-99) mg/dL Plasma Lactic Acid John 0.8 (0.7-2.0) mmol/L Calcium 9.4 (8.4-10.2) mg/dL Total Bilirubin 2.3 H (0.2-1.3) mg/dL AST 877 H (14-36) U/L ALT 764 H (9-52) U/L Alkaline Phosphatase 252 H (38-126) U/L Troponin I (0.000-0.034) ng/mL Total Protein 8.4 H (6.3-8.2) g/dL Albumin 4.2 (3.5-5.0) g/dL Amylase 47 (30-110) U/L Lipase 239 (23-300) U/L Urine Color Urine Appearance (Clear) Urine pH (5.0-8.0) Ur Specific [place] (1.001-1.035) Urine Protein (Negative) Urine Glucose (UA) (Negative) Urine Ketones (Negative) Urine Blood (Negative) Urine Nitrite (Negative) Urine Bilirubin (Negative) Urine Urobilinogen (<2.0) mg/dL Ur Leukocyte Esterase (Negative) Urine RBC (0-5) /hpf Urine WBC (0-5) /hpf Ur Squamous Epith Cells (0-4) /hpf Urine Mucus (None) /hpf 01/19/18 01/19/18 01/19/18 Range/Units 20:50 20:50 23:00 WBC (3.8-10.6) k/uL RBC (3.80-5.40) m/uL Hgb (11.4-16.0) gm/dL Hct (34.0-46.0) % MCV (80.0-100.0) fL MCH (25.0-35.0) pg MCHC (31.0-37.0) g/dL RDW (11.5-15.5) % Plt Count (150-450) k/uL Neutrophils % % Lymphocytes % % Monocytes % % Eosinophils % % Basophils % % Neutrophils # (1.3-7.7) k/uL Lymphocytes # (1.0-4.8) k/uL Monocytes # (0-1.0) k/uL Eosinophils # (0-0.7) k/uL Basophils # (0-0.2) k/uL PT 10.1 (9.0-12.0) sec INR 1.0 (<1.2) APTT 25.1 (22.0-30.0) sec Sodium (137-145) mmol/L Potassium (3.5-5.1) mmol/L Chloride (98-107) mmol/L Carbon Dioxide (22-30) mmol/L Anion Gap mmol/L BUN (7-17) mg/dL Creatinine (0.52-1.04) mg/dL Est GFR (CKD-EPI)AfAm (>60 ml/min/1.73 sqM) Est GFR (CKD-EPI)NonAf (>60 ml/min/1.73 sqM) Glucose (74-99) mg/dL Plasma Lactic Acid John (0.7-2.0) mmol/L Calcium (8.4-10.2) mg/dL Total Bilirubin (0.2-1.3) mg/dL AST (14-36) U/L ALT (9-52) U/L Alkaline Phosphatase (38-126) U/L Troponin I <0.012 (0.000-0.034) ng/mL Total Protein (6.3-8.2) g/dL Albumin (3.5-5.0) g/dL Amylase (30-110) U/L Lipase (23-300) U/L Urine Color Dark Brown Urine Appearance Cloudy H (Clear) Urine pH 6.0 (5.0-8.0) Ur Specific [place] 1.036 H (1.001-1.035) Urine Protein 1+ H (Negative) Urine Glucose (UA) Negative (Negative) Urine Ketones 1+ H (Negative) Urine Blood Moderate H (Negative) Urine Nitrite Negative (Negative) Urine Bilirubin 1+ H (Negative) Urine Urobilinogen 2.0 (<2.0) mg/dL Ur Leukocyte Esterase Trace H (Negative) Urine RBC >182 H (0-5) /hpf Urine WBC 5 (0-5) /hpf Ur Squamous Epith Cells 3 (0-4) /hpf Urine Mucus Occasional H (None) /hpf 01/19/18 23:35 EKG shows normal sinus rhythm, nonspecific ST abnormality. Abnormal EKG noted. Ventricular rate of 71 bpm.. Normal 1:30 milliseconds. QRS ration 62. QT QTc is 424/460. - Radiology Data Radiology results: report reviewed Go bladder ultrasound shows evidence of cholecystectomy. Negative right upper quadrant and abdominal exam. Liver like to 17 cm. Cone bile duct is 0.9 cm. KUB shows no objective bowel gas pattern. Disposition Clinical Impression: Hypertensive urgency, Elevated transaminase level, Nausea & vomiting Disposition: ADMITTED IP TO THIS HOSP Condition: Stable Is patient prescribed a controlled substance at d/c from ED?: No When asked, does pt state using other controlled substances?: No If prescribed controlled substance>3 days was MAPS reviewed?: No If opioid is for acute pain is fill amount 7 days or less?: No If Rx opioid, was Start Talking consent form obtained?: No Referrals: Domenico Cruz MD [Primary Care Provider] - 1-2 days Time of Disposition: 00:44
[2018-01-19] MEDS ORDERED: LABETALOL 5 MG/ML VIAL MDV IVP STA (21:55)
[2018-01-19 21:57] LABS: Chloride 101 mmol/L (98-107)
[2018-01-19 21:59] LABS: ALT 764 U/L (9-52); Albumin 4.2 g/dL (3.5-5.0); Alkaline Phosphatase 252 U/L (38-126); Amylase 47 U/L (30-110); Anion Gap 11 mmol/L; Blood Urea Nitrogen 14 mg/dL (7-17); Calcium 9.4 mg/dL (8.4-10.2); Carbon Dioxide 28 mmol/L (22-30); Glucose 115 mg/dL (74-99); Lipase 239 U/L (23-300); Potassium 3.6 mmol/L (3.5-5.1); Sodium 140 mmol/L (137-145); Total Bilirubin 2.3 mg/dL (0.2-1.3); Total Protein 8.4 g/dL (6.3-8.2)
[2018-01-19 22:07] LABS: AST 877 U/L (14-36)
[2018-01-19 22:15] LABS: Partial Thromboplastin Time 25.1 sec (22.0-30.0); Prothrombin Time 10.1 sec (9.0-12.0)
[2018-01-19] MEDS ORDERED: MORPHINE SULFATE 4 MG/ML SYRINGE IVP STA (23:27)
--- NOTE | 2018-01-19 23:28 | US ---
EXAMINATION TYPE: US gallbladder DATE OF EXAM: 01/19/2018 COMPARISON: NONE CLINICAL HISTORY: Pain. Pain and vomiting EXAM MEASUREMENTS: Liver Length: 17 cm Gallbladder Wall: Surgically absent cm CBD: 0.9 cm Right Kidney: 10.6 x 4.4 x 4.8 cm Pancreas: Obscured by bowel gas Liver: wnl Gallbladder: Surgically absent CBD: appears wnl Right Kidney: No hydronephrosis or masses seen IMPRESSION: Cholecystectomy. Negative right upper quadrant abdominal sonogram.
[2018-01-19 23:38] LABS: Appearance,Urine Cloudy (Clear); Bilirubin,Urine 1+ (Negative); Blood,Urine Moderate (Negative); Color,Urine Dark Brown; Glucose,Urine (UA) Negative (Negative); Ketones,Urine 1+ (Negative); Leukocyte Esterase,Urine Trace (Negative); Mucus,Urine Occasional /hpf; Nitrite,Urine Negative (Negative); Protein,Urine 1+ (Negative); RBC,Urine >182 /hpf (0-5); Specific Gravity,Urine 1.036 (1.001-1.035); Squamous Epithelial Cell,Urine 3 /hpf (0-4); WBC,Urine 5 /hpf (0-5)
--- NOTE | 2018-01-19 23:56 | XR ---
EXAMINATION TYPE: XR KUB DATE OF EXAM: 01/19/2018 COMPARISON: NONE HISTORY: Abdominal pain TECHNIQUE: 2 views FINDINGS: Bowel gas pattern is normal. There is no sign of intestinal obstruction or pneumoperitoneum . Fecal pattern is normal. There are clips from cholecystectomy. There is no evidence of a mass. IMPRESSION: Nonacute abdomen.
[2018-01-20] MEDS ORDERED: KETOROLAC 30 MG/ML 1 ML VIAL IVP PRN (00:45)
[2018-01-20] MEDS ORDERED: NALOXONE 0.4 MG/ML 1 ML VIAL IV PRN (00:45)
[2018-01-20] MEDS ORDERED: IBUPROFEN 400 MG TAB PO PRN (00:45)
[2018-01-20] MEDS ORDERED: ACETAMINOPHEN TAB 325 MG TAB PO PRN (00:45)
[2018-01-20] MEDS ORDERED: ONDANSETRON 4 MG/2 ML VIAL IVP PRN (00:45)
[2018-01-20] MEDS: MORPHINE SULFATE 4 MG/ML SYRINGE IV PRN ×2 (01:35→05:32)
[2018-01-20] MEDS ORDERED: ENALAPRILAT 1.25 MG/ML 1 ML VIAL IVP PRN (01:46)
[2018-01-20] MEDS ORDERED: ENALAPRILAT 1.25 MG/ML 1 ML VIAL IVP ONE (02:15)
[2018-01-20] MEDS: SODIUM CHLORIDE 0.9% 1,000 ML IV SCH ×3 (02:27→17:56)
[2018-01-20 02:34] LABS: Hepatitis A AB IgM Index 0.01; Hepatitis A Antibody IgM NEGATIVE
[2018-01-20] MEDS ORDERED: PANTOPRAZOLE 40 MG/10 ML VIAL IV SCH (09:00)
[2018-01-20] MEDS: MORPHINE SULFATE 2 MG/ML SYRINGE IV PRN ×4 (09:59→21:31)
[2018-01-20 11:40] LABS: Hepatitis B Core IgM Non-Reactive (Non-Reactive)
[2018-01-20 12:14] LABS: Bilirubin, Delta 0.6 mg/dL (0.0-0.2); Bilirubin,Unconjugated 0.4 mg/dL (0.0-1.1)
[2018-01-20 16:53] LABS: HCT 27.8 % (34.0-46.0); MCH 29.6 pg (25.0-35.0); MCV 92.5 fL (80.0-100.0); Mean Platelet Volume 7.4; Platelet Count 235 k/uL (150-450); RDW 12.2 % (11.5-15.5); WBC 8.3 k/uL (3.8-10.6)
[2018-01-20] MEDS: LORazepam 1 MG TAB PO SCH ×4 (17:00→21:31)
[2018-01-20 17:01] LABS: HGB 8.9 gm/dL (11.4-16.0)
[2018-01-20 17:09] LABS: ALT 411 U/L (9-52); AST 241 U/L (14-36); Albumin 3.2 g/dL (3.5-5.0); Alkaline Phosphatase 172 U/L (38-126); Anion Gap 12 mmol/L; Blood Urea Nitrogen 15 mg/dL (7-17); Calcium 8.2 mg/dL (8.4-10.2); Carbon Dioxide 26 mmol/L (22-30); Chloride 105 mmol/L (98-107); Glucose 81 mg/dL (74-99); Potassium 3.6 mmol/L (3.5-5.1); Sodium 143 mmol/L (137-145); Total Bilirubin 1.3 mg/dL (0.2-1.3); Total Protein 6.5 g/dL (6.3-8.2)
[2018-01-20] MEDS: SERTRALINE 100 MG TAB PO SCH (17:22)
--- NOTE | 2018-01-20 17:31 | HP ---
HISTORY AND PHYSICAL DATE OF ADMISSION: 01/20/18 DATE OF SERVICE: 01/20/18 PRESENTING COMPLAINT: Abdominal pain, nausea, vomiting. HISTORY OF PRESENTING COMPLAINT: Pleasant 62-year-old patient of Dr. Cruz. Chronic stable medical conditions include anxiety, depression, GERD. About 2 days ago patient started up with increasing epigastric pain with continued to get worse. Did go a bit through her back. Patient is having nausea and vomiting at least 4 or 5 times. There is no blood in the vomitus. There was no fever, chills. The patient did have a bowel movement the day before. The patient does not have a gallbladder. The patient's LFTs came back to be raised. The patient denied any urinary symptoms. The patient's pain is rather significant, mostly limited to the epigastric area. The patient had some slight nausea today. No further vomiting. The patient's friend is at the bedside. GI was consulted from the ER, pending their input. Getting IV fluids. REVIEW OF SYSTEMS: Constitutional: Tired. HEENT none. Respiratory none. Cardiovascular: None. Gastrointestinal: As above. Genitourinary: None. Musculoskeletal none. Dermatological, hematologic, lymphatic none. Psychiatry: Anxiety and depression. GERD. Neurological: None. PAST MEDICAL HISTORY: Large fibroid tumors, anxiety, depression. PAST SURGICAL HISTORY: Cholecystectomy, hammertoe surgery. PAST PSYCH HISTORY: Claustrophobia. SOCIAL HISTORY: Does not smoke or drink alcohol. 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 FAMILY HISTORY: Reviewed. Noncontributory to presentation. HOME MEDICATIONS: 1. Zoloft 200 mg a day. 2. Vitamin D2 1 capsule p.o. every 7 days. 3. Bentyl 20 mg p.o. q.i.d. 4. Ativan 1 mg p.o. t.i.d. 5. Pepcid 20 mg b.i.d. 6. Macrobid 100 mg q.12. 7. Zofran 4 mg q.8h p.r.n. 8. Prilosec 20 mg p.o. daily. ALLERGY: TAMIFLU AND VANCOMYCIN. PHYSICAL EXAMINATION: Vital signs on presentation, temperature 98.5, pulse 80, respiratory 18, blood pressure 192/88, pulse ox 98% on room air, repeat blood pressure 134/77. GENERAL APPEARANCE: Average built. BMI 31.3. Lying in bed somewhat uncomfortable. EYES: Pupils are equal. Conjunctivae normal. HEENT: External appearance of nose and ears. Oral cavity normal. NECK: JVD not raised. Mass not palpable. RESPIRATORY: Effort normal. LUNGS: Fair entry. CARDIOVASCULAR: 1st and 2nd sounds normal. No edema. ABDOMEN: Epigastric tenderness. No guarding or rigidity. Liver and spleen not palpable. LYMPHATICS: No lymph nodes palpable in the neck or axilla. PSYCHIATRY: Alert and oriented x3. Mood and affect normal. NEUROLOGICAL: Pupils equal. Cranial nerves grossly intact. Power and sensation grossly intact. INVESTIGATIONS: White count 7.5, hemoglobin 11.2, potassium 3.6. BUN and creatinine is normal. Total bilirubin was 1, then repeat was 2.3, AST 877, ALT is 764, alkaline phosphatase 252. UA positive for blood, 1+ bilirubin, trace leuco esterase, RBC 1 to 182. Hepatitis screen A, B and C negative. ASSESSMENT: 1. This patient presented with increasing epigastric pain of 2 days duration with nausea, vomiting. No fever, no white count in a prior patient with cholecystectomy with elevated liver enzymes and bilirubin. Appears most likely to be a residual bile duct stone. 2. Microscopic hematuria. Differential would include a stone, but appears to be less likely. 3. Obesity, BMI 31.3. 4. Anxiety not otherwise specified. 5. Depression, not otherwise specified. 6. Gastroesophageal reflux disease. PLAN: Patient is put on IV fluids, made n.p.o. except for p.o. medications. Gastroenterology, Dr. Chapa was consulted. The patient will need an ERCP. The patient does not appear to have a UTI. Hold off any antibiotics. Care was discussed with the patient. Questions were answered. We will repeat the patient's labs today and tomorrow morning. Copy to Dr. Cruz. MMODL / IJN: [id number] /
[2018-01-21] MEDS ORDERED: MORPHINE SULFATE 2 MG/ML SYRINGE ONE ×2 (02:35)
--- NOTE | 2018-01-21 07:05 | P.CONS ---
History of Present Illness - Reason for Consult Consult date: 01/20/18 Epigastric pain and elevated liver enzymes - History of Present Illness The patient is a 62-year-old female who presented to the emergency room with history of epigastric pain associated with nausea and vomiting off around 2-3 days duration. The patient felt significant fatigue the day before the onset of her symptoms and spent most of the weekend in bed, sleeping most of the time. She denied fever, chills or jaundice. She had few diarrheic bowel movements later on but no bleeding. She was found to have significant elevation in her liver enzymes and was admitted for further management. Her liver enzymes on admission yesterday revealed AST 877, ALT 764 and alkaline phosphatase 252. Total bilirubin 2.3. Today they are down to 241, 411 and 172 with total bilirubin of 1. Albumin 3.2. Her ultrasound showed common bile duct 0.9 mm total length of the liver 17 cm. The patient had cholecystectomy for cholelithiasis with Dr. Tena around 4 years ago and she did not have any abdominal symptoms after that. She has chronic reflux symptoms maintained on PPI. She has seen Dr. Woodruff who is investigating her for a monoclonal gammopathy. There is no family history of liver disease or any recent travel. No recent use of antibiotics or any recent change in her medications. Drinks alcohol socially and rarely. Hepatitis serology already ordered and is negative. Review of Systems Constitutional: No history of fever, chills or unintentional weight loss Neurologic: Denied headaches, double vision or other sensory or motor changes Cardiopulmonary: Denied chest pain, shortness of breath or palpitations Genitourinary: No gross hematuria, dysuria or frequency. She will be evaluated by urology for finding of microscopic hematuria Gastrointestinal: See present illness above Endocrine: No history of diabetes or thyroid disease Hematologic: History of monoclonal gammopathy and has been noted to have drop in her hemoglobin but no bleeding tendency or overt bleeding Skin: No rashes Musculoskeletal: No history of joint swelling or pains Psychiatric: History of anxiety Past Medical History Past Medical History: Cancer Additional Past Medical History / Comment(s): LARGE FIBROID TUMORS History of Any Multi-Drug Resistant Organisms: None Reported Past Surgical History: Cholecystectomy Additional Past Surgical History / Comment(s): HAMMER TOE SURGERY Additional Past Anesthesia/Blood Transfusion Reaction / Comm: SEVERELY CLAUSTROPHIC Past Psychological History: Anxiety, Depression Smoking Status: Never smoker Past Alcohol Use History: None Reported Past Drug Use History: None Reported - Past Family History Mother Family Medical History: No Reported History Father Family Medical History: No Reported History Medications and Allergies Home Medications Medication Instructions Recorded Confirmed Type LORazepam [Ativan] 1 mg PO TID 09/18/16 01/19/18 History Omeprazole [PriLOSEC] 20 mg PO DAILY 09/18/16 01/19/18 History Dicyclomine [Bentyl] 20 mg PO QID #15 tablet 01/19/18 01/19/18 Rx Ergocalciferol (Vitamin D2) 1 cap PO Q7D 01/19/18 01/19/18 History [Vitamin D2] Famotidine [Pepcid] 20 mg PO BID #14 tablet 01/19/18 01/19/18 Rx Nitrofurantoin Monohyd/M-Cryst 100 mg PO Q12HR #6 cap 01/19/18 01/19/18 Rx [Macrobid] Ondansetron Odt [Zofran ODT] 4 mg PO Q8HR PRN #10 tab 01/19/18 01/19/18 Rx Sertraline [Zoloft] 200 mg PO DAILY 01/19/18 01/19/18 History Allergies Allergy/AdvReac Type Severity Reaction Status Date / Time oseltamivir phosphate Allergy Mild HIVES Verified 01/19/18 20:47 [From Tamiflu] vancomycin Allergy SOB AND Verified 01/19/18 20:47 HIVES Physical Exam Vitals: Vital Signs Temp Pulse Pulse Resp BP BP Pulse Ox 01/20/18 21:20 17 01/20/18 15:00 98.9 F 71 17 159/78 91 L 01/20/18 05:25 98.2 F 66 16 134/77 95 01/20/18 02:50 97.9 F 74 16 146/80 94 L 01/20/18 02:17 98.2 F 01/20/18 01:58 68 18 158/84 94 L 01/20/18 01:37 98 F 65 16 180/84 98 01/20/18 00:02 67 19 175/81 98 01/19/18 23:22 72 16 196/92 96 Intake and Output 01/20/18 01/20/18 01/20/18 06:59 14:59 22:59 Intake Total 50 Balance 50 Intake: Oral 50 Other: Voiding Method Toilet Toilet Toilet # Voids 1 1 Weight 90.718 kg 90.718 kg General: Appears stated date very pleasant in distress secondary to abdominal pain Head and neck: Normocephalic and atraumatic, conjunctivae pink and sclerae not icteric, mucous membranes moist and pink. No masses in the neck or tracheal shifts. No adenopathy or thyromegaly Lungs: Clear to auscultation with no dullness to percussion Heart: Regular, no abnormal sounds, murmurs, gallops or friction rubs Abdomen: Soft mild distention and diffuse mild tenderness on deep palpation but no guarding or rebound. No masses felt. Bowel sounds present Extremities: No clubbing, cyanosis or edema Skin: No rashes Neurologic: Alert and oriented 3. Cranial nerves grossly intact. No gross sensory or motor abnormalities Results CBC & Chem 7: 01/20/18 16:26 01/20/18 16:26 Labs: Abnormal Lab Results - Last 24 Hours (Table) 01/19/18 01/19/18 01/19/18 Range/Units 04:15 20:50 23:00 RBC (3.80-5.40) m/uL Hgb (11.4-16.0) gm/dL Hct (34.0-46.0) % Glucose 115 H (74-99) mg/dL Calcium (8.4-10.2) mg/dL Total Bilirubin 2.3 H (0.2-1.3) mg/dL Delta Bilirubin 0.6 H (0.0-0.2) mg/dL AST 877 H (14-36) U/L ALT 764 H (9-52) U/L Alkaline Phosphatase 252 H (38-126) U/L Total Protein 8.4 H (6.3-8.2) g/dL Albumin (3.5-5.0) g/dL Urine Appearance Cloudy H (Clear) Ur Specific [place] 1.036 H (1.001-1.035) Urine Protein 1+ H (Negative) Urine Ketones 1+ H (Negative) Urine Blood Moderate H (Negative) Urine Bilirubin 1+ H (Negative) Ur Leukocyte Esterase Trace H (Negative) Urine RBC >182 H (0-5) /hpf Urine Mucus Occasional H (None) /hpf 01/20/18 01/20/18 Range/Units 16:26 16:26 RBC 3.00 L (3.80-5.40) m/uL Hgb 8.9 L D (11.4-16.0) gm/dL Hct 27.8 L (34.0-46.0) % Glucose (74-99) mg/dL Calcium 8.2 L (8.4-10.2) mg/dL Total Bilirubin (0.2-1.3) mg/dL Delta Bilirubin (0.0-0.2) mg/dL AST 241 H (14-36) U/L ALT 411 H (9-52) U/L Alkaline Phosphatase 172 H (38-126) U/L Total Protein (6.3-8.2) g/dL Albumin 3.2 L (3.5-5.0) g/dL Urine Appearance (Clear) Ur Specific [place] (1.001-1.035) Urine Protein (Negative) Urine Ketones (Negative) Urine Blood (Negative) Urine Bilirubin (Negative) Ur Leukocyte Esterase (Negative) Urine RBC (0-5) /hpf Urine Mucus (None) /hpf Assessment and Plan Assessment: Epigastric pain, nausea and vomiting with elevated liver enzymes of no clear etiology at this point. With a significant pain component as well as nausea and vomiting, the possibility of common bile duct stone should be considered. An inflammatory liver process, including autoimmune hepatitis or other causes of infectious or inflammatory liver problems are in the differential diagnosis. Plan: Agree with your current management. I discussed with the patient at length the various possibilities to be considered. I will discuss with you some additional steps based on her course including obtaining imaging of the liver and biliary tree which could include MRI or ERCP. Will obtain blood studies for autoimmune hepatitis. Contingency liver biopsy based on her course. Her anemia would also need to be addressed for the possibility of a component of GI blood loss. We will follow with you with great interest.
[2018-01-21] MEDS: SODIUM CHLORIDE 0.9% 1,000 ML IV SCH ×3 (07:22→17:15)
[2018-01-21] MEDS ORDERED: PANTOPRAZOLE 40 MG TABLET PO SCH (07:30)
--- NOTE | 2018-01-21 07:38 | P.GSCN ---
History of Present Illness Consult date: 01/21/18 Reason for Consult: Microscopic hematuria History of present illness: The patient is a 62-year-old female with a history of epigastric and right upper quadrant pain coupled with nausea, vomiting and diarrhea which began almost 1 week ago. The patient was seen in the emergency room earlier in the week and was suspected to have a urinary tract infection and started on Macrobid but she never picked up the prescription. No urine culture was obtained at that time. She returned to the emergency room on 01/20 and her liver function tests were abnormal. AST was 877, a LT 364, alkaline phosphatase 252 and total bilirubin was 2.3. A urinalysis showed greater than 182 red cells 5 white cells 3 epithelial cells but was negative for nitrite. Computed tomography scan of the abdomen and pelvis showed a small benign- appearing cyst in the lower pole of the right kidney but no other abnormalities of the urinary system. She was admitted for further evaluation of her abnormal liver function tests and epigastric pain. She says her pain has improved and she no longer has diarrhea. Her liver function tests have improved somewhat over the last 24 hours. The patient denies a history of microscopic or gross hematuria. She has no history of urolithiasis. She has had occasional urinary tract infections. She says she usually voids every 1-2 hours during the day but only rarely at night. She does have some rare stress urinary incontinence. She was evaluated by Dr. Mcgregor approximately 2 years ago but it was not felt that surgical treatment of the stress incontinence was necessary. Review of Systems - Constitutional Denies chills, Denies fever - Gastrointestinal Reports as per HPI - Genitourinary Genitourinary: Reports as per HPI Past Medical History Past Medical History: Cancer Additional Past Medical History / Comment(s): LARGE FIBROID TUMORS History of Any Multi-Drug Resistant Organisms: None Reported Past Surgical History: Cholecystectomy, Hysterectomy (And bilateral salpingo- oophorectomy) Additional Past Surgical History / Comment(s): HAMMER TOE SURGERY Additional Past Anesthesia/Blood Transfusion Reaction / Comm: SEVERELY CLAUSTROPHIC Past Psychological History: Anxiety, Depression Smoking Status: Never smoker Past Alcohol Use History: None Reported Past Drug Use History: None Reported - Past Family History Mother Family Medical History: No Reported History Father Family Medical History: No Reported History Medications and Allergies Home Medications Medication Instructions Recorded Confirmed Type LORazepam [Ativan] 1 mg PO TID 09/18/16 01/19/18 History Omeprazole [PriLOSEC] 20 mg PO DAILY 09/18/16 01/19/18 History Dicyclomine [Bentyl] 20 mg PO QID #15 tablet 01/19/18 01/19/18 Rx Ergocalciferol (Vitamin D2) 1 cap PO Q7D 01/19/18 01/19/18 History [Vitamin D2] Famotidine [Pepcid] 20 mg PO BID #14 tablet 01/19/18 01/19/18 Rx Nitrofurantoin Monohyd/M-Cryst 100 mg PO Q12HR #6 cap 01/19/18 01/19/18 Rx [Macrobid] Ondansetron Odt [Zofran ODT] 4 mg PO Q8HR PRN #10 tab 01/19/18 01/19/18 Rx Sertraline [Zoloft] 200 mg PO DAILY 01/19/18 01/19/18 History Allergies Allergy/AdvReac Type Severity Reaction Status Date / Time oseltamivir phosphate Allergy Mild HIVES Verified 01/19/18 20:47 [From Tamiflu] vancomycin Allergy SOB AND Verified 01/19/18 20:47 HIVES Surgical - Exam Vital Signs Temp Pulse Resp BP Pulse Ox 98.5 F 88 18 192/88 98 01/19/18 19:53 01/19/18 19:53 01/19/18 19:53 01/19/18 19:53 01/19/18 19:53 - General well developed, well nourished, no distress, obese - Respiratory normal respiratory effort - Abdomen Abdomen: tender (Epigastric region), no organomegaly Results - Labs 01/20/18 16:26 01/20/18 16:26 Abnormal Lab Results - Last 24 Hours (Table) 01/19/18 01/20/18 01/20/18 Range/Units 04:15 16:26 16:26 RBC 3.00 L (3.80-5.40) m/uL Hgb 8.9 L D (11.4-16.0) gm/dL Hct 27.8 L (34.0-46.0) % Calcium 8.2 L (8.4-10.2) mg/dL Delta Bilirubin 0.6 H (0.0-0.2) mg/dL AST 241 H (14-36) U/L ALT 411 H (9-52) U/L Alkaline Phosphatase 172 H (38-126) U/L Albumin 3.2 L (3.5-5.0) g/dL Microbiology - Last 24 Hours (Table) 01/19/18 20:50 Blood Culture - Preliminary Blood No Growth after 24 hours Diabetes panel 01/20/18 Range/Units 16:26 Sodium 143 (137-145) mmol/L Potassium 3.6 (3.5-5.1) mmol/L Chloride 105 (98-107) mmol/L Carbon Dioxide 26 (22-30) mmol/L BUN 15 (7-17) mg/dL Creatinine 0.69 (0.52-1.04) mg/dL Glucose 81 (74-99) mg/dL Calcium 8.2 L (8.4-10.2) mg/dL AST 241 H (14-36) U/L ALT 411 H (9-52) U/L Alkaline Phosphatase 172 H (38-126) U/L Total Protein 6.5 (6.3-8.2) g/dL Albumin 3.2 L (3.5-5.0) g/dL Calcium panel 01/20/18 Range/Units 16:26 Calcium 8.2 L (8.4-10.2) mg/dL Albumin 3.2 L (3.5-5.0) g/dL Pituitary panel 01/20/18 Range/Units 16:26 Sodium 143 (137-145) mmol/L Potassium 3.6 (3.5-5.1) mmol/L Chloride 105 (98-107) mmol/L Carbon Dioxide 26 (22-30) mmol/L BUN 15 (7-17) mg/dL Creatinine 0.69 (0.52-1.04) mg/dL Glucose 81 (74-99) mg/dL Calcium 8.2 L (8.4-10.2) mg/dL Adrenal panel 01/19/18 01/20/18 Range/Units 04:15 16:26 Sodium 143 (137-145) mmol/L Potassium 3.6 (3.5-5.1) mmol/L Chloride 105 (98-107) mmol/L Carbon Dioxide 26 (22-30) mmol/L BUN 15 (7-17) mg/dL Creatinine 0.69 (0.52-1.04) mg/dL Glucose 81 (74-99) mg/dL Calcium 8.2 L (8.4-10.2) mg/dL Total Bilirubin 1.0 1.3 (0.2-1.3) mg/dL AST 241 H (14-36) U/L ALT 411 H (9-52) U/L Alkaline Phosphatase 172 H (38-126) U/L Total Protein 6.5 (6.3-8.2) g/dL Albumin 3.2 L (3.5-5.0) g/dL Assessment and Plan (1) Asymptomatic microscopic hematuria Narrative/Plan: The source of the patient's asymptomatic microscopic hematuria is not clear. Computed tomography scan of the abdomen and pelvis with IV contrast did not show any identifiable problem which would explain the hematuria. The patient has seen Dr. Mcgregor previously and could follow-up in the office once she is discharged as cystoscopy may be considered for further evaluation. Current Visit: Yes Status: Acute Code(s): R31.21 - ASYMPTOMATIC MICROSCOPIC HEMATURIA SNOMED Code(s): 734839439
[2018-01-21] MEDS: SERTRALINE 100 MG TAB PO SCH (07:52)
[2018-01-21] MEDS: LORazepam 1 MG TAB PO SCH ×3 (07:52→21:57)
[2018-01-21] MEDS: MORPHINE SULFATE 2 MG/ML SYRINGE IV PRN (09:22)
--- NOTE | 2018-01-21 09:23 | P.PN ---
Subjective Progress Note Date: 01/21/18 Principal diagnosis: Epigastric pain elevated liver enzymes Still reports epigastric pain. Hemoglobin 8.2. White count 7.0. No active melena hematochezia or hematemesis. Liver enzymes pending. Denies gross hematuria. History of cholecystectomy 2010 for chronic cholecystitis surgical pathology cholesterolosis. Objective - Vital Signs Vital signs: Vital Signs Temp 98.9 F 01/21/18 06:21 Pulse 82 01/21/18 06:21 Resp 16 01/21/18 06:21 BP 146/75 01/21/18 06:21 Pulse Ox 95 01/21/18 06:21 Intake & Output 01/20/18 01/21/18 01/21/18 18:59 06:59 18:59 Intake Total 50 960 Balance 50 960 Weight 90.718 kg Intake: Intake, IV Titration 960 Amount Sodium Chloride 0.9% 1, 960 000 ml @ 120 mls/hr IV . Q8H20M LEELA Rx#:[id number] Oral 50 Other: Voiding Method Toilet Toilet # Voids 1 1 - Exam General appearance: The patient is alert, oriented, in no acute distress. HET: Head is normocephalic and atraumatic. Pupils are equal and reactive. Oropharynx is clear without lesions. Neck: Supple without lymphadenopathy. Trachea midline. Heart: S1 S2. Regular rate and rhythm. Lungs: No crackles or wheezes are heard. Abdomen: Soft, midepigastric tenderness, nondistended with bowel sounds. No peritoneal signs. No palpable organomegaly or masses. Extremities: Normal skin color and turgor. No cyanosis, rash, ulceration, clubbing, or edema. Radial and pedal pulses are 2/4 bilaterally. Neurological: No focal deficits. Strength and sensation are grossly intact. - Labs CBC & Chem 7: 01/21/18 08:30 01/21/18 08:30 Labs: Abnormal Lab Results - Last 24 Hours (Table) 01/19/18 01/20/18 01/20/18 Range/Units 04:15 16:26 16:26 RBC 3.00 L (3.80-5.40) m/uL Hgb 8.9 L D (11.4-16.0) gm/dL Hct 27.8 L (34.0-46.0) % Calcium 8.2 L (8.4-10.2) mg/dL Delta Bilirubin 0.6 H (0.0-0.2) mg/dL AST 241 H (14-36) U/L ALT 411 H (9-52) U/L Alkaline Phosphatase 172 H (38-126) U/L Albumin 3.2 L (3.5-5.0) g/dL Microbiology - Last 24 Hours (Table) 01/19/18 20:50 Blood Culture - Preliminary Blood No Growth after 24 hours Assessment and Plan (1) Abdominal pain Narrative/Plan: 62-year-old female admitted with epigastric pain elevated liver enzymes and anemia without overt bleeding or gross hematuria. History of cholecystectomy for chronic cholecystitis in 2010 surgical pathology reported cholesterolosis. Possible peptic ulcer disease possible choledocholithiasis possible autoimmune hepatitis being considered. Current Visit: No Status: Acute Code(s): R10.9 - UNSPECIFIED ABDOMINAL PAIN SNOMED Code(s): 68753202 (2) Hepatitis Current Visit: Yes Status: Acute Code(s): K75.9 - INFLAMMATORY LIVER DISEASE , UNSPECIFIED SNOMED Code(s): 283508750 (3) Anemia Current Visit: Yes Status: Acute Code(s): D64.9 - ANEMIA, UNSPECIFIED SNOMED Code(s): 271684283 Plan: 1. MRCP. Hepatitis screen negative. 2. Protonix 40 mg IV daily. 3. CBC CMP daily. NPO except meds. Assessment and plan a care discussed with Dr. Justin
[2018-01-21 09:34] LABS: Basophils % (A) 0 %; Eosinophils # (A) 0.1 k/uL (0-0.7); Eosinophils % (A) 1 %; HCT 25.4 % (34.0-46.0); HGB 8.2 gm/dL (11.4-16.0); Lymphocytes # (A) 0.9 k/uL (1.0-4.8); Lymphocytes % (A) 13 %; MCH 29.9 pg (25.0-35.0); MCHC 32.4 g/dL (31.0-37.0); MCV 92.3 fL (80.0-100.0); Mean Platelet Volume 7.7; Monocytes # (A) 0.6 k/uL (0-1.0); Monocytes % (A) 8 %; Neutrophils # (A) 5.4 k/uL (1.3-7.7); Neutrophils % (A) 77 %; Platelet Count 213 k/uL (150-450); RBC 2.75 m/uL (3.80-5.40); RDW 12.5 % (11.5-15.5)
[2018-01-21 10:11] LABS: ALT 304 U/L (9-52); AST 128 U/L (14-36); Albumin 3.1 g/dL (3.5-5.0); Alkaline Phosphatase 160 U/L (38-126); Anion Gap 9 mmol/L; Blood Urea Nitrogen 11 mg/dL (7-17); Carbon Dioxide 27 mmol/L (22-30); Chloride 104 mmol/L (98-107); Glucose 77 mg/dL (74-99); Potassium 3.4 mmol/L (3.5-5.1); Sodium 140 mmol/L (137-145); Total Bilirubin 1.2 mg/dL (0.2-1.3); Total Protein 6.5 g/dL (6.3-8.2)
[2018-01-21] MEDS ORDERED: DIAZEPAM 2 MG TAB PO STA (13:12)
[2018-01-21] MEDS: MORPHINE ORAL SOLN 10 MG/5 ML CUP PO PRN (15:04)
--- NOTE | 2018-01-21 17:32 | MR ---
EXAMINATION TYPE: MR MRCP CLINICAL INDICATION (signs / symptoms): elevated liver enzymes epigastric pain DATE OF EXAM: 01/21/2018 COMPARISON: CT and ultrasound 01/20/1980 TECHNIQUE: Multiplanar, multisequence MRI departmental protocol FINDINGS: 1. There is a small volume of simple-appearing perihepatic peritoneal fluid. This is a new finding since the 01/19/2018 studies. 2. Also, there is a small amount of complex fluid-signal in the perigastric position, related to the greater curvature, which may represent proteinaceous content. It is peculiar in that it is seen to t he right lateral arch of stomach with a smaller component between the stomach and increase. Difficult to fully assess without intravenous contrast but this finding appears to be within the sac of the pe ritoneal cavity and its signal characteristics favor proteinaceous content. It too is new compared to the 01/19/2018 studies. The above findings are most conspicuous on axial T2 fat-suppressed sequence. The liver parenchyma is unremarkable. The intrahepatic and extra hepatic biliary tree is unremarkable post cholecystectomy. The gallbladder fossa is unremarkable. Pancreatic ductal anatomy is unremarkab le. Pancreatic parenchyma is negative. The kidneys and adrenals are unremarkable. Spleen and visualiz ed bowel are unremarkable as is the vasculature. Skeletal structures and visualized extra abdominal s tructures are unremarkable. IMPRESSION: SMALL VOLUME PERITONEAL FLUID, NEW SINCE PRIOR CT/ULTRASOUND ON 01/19/2018. WHILE THERE ARE NO GALLBLA DDER FOSSA FINDINGS, CLINICAL EXCLUSION OF BILIARY LEAK IS REQUESTED.
[2018-01-22] MEDS: MORPHINE ORAL SOLN 10 MG/5 ML CUP PO PRN ×3 (01:40→16:29)
[2018-01-22] MEDS: SODIUM CHLORIDE 0.9% 1,000 ML IV SCH ×2 (01:43→11:06)
[2018-01-22] MEDS: LORazepam 1 MG TAB PO SCH ×2 (08:13→16:09)
[2018-01-22] MEDS: SERTRALINE 100 MG TAB PO SCH (08:13)
--- NOTE | 2018-01-22 09:20 | P.PN ---
Subjective Progress Note Date: 01/22/18 Principal diagnosis: Epigastric pain elevated liver enzymes Still reports epigastric pain. Morning chemistries pending. T-max 100.6. MRCP completed and reviewed fluid collection seen posterior stomach greater curvature questionable perforated peptic ulcer disease within the differential. No active melena hematochezia or hematemesis. Objective - Vital Signs Vital signs: Vital Signs Temp 98.6 F 01/22/18 07:00 Pulse 83 01/22/18 07:00 Resp 14 01/22/18 07:00 BP 99/64 01/22/18 07:00 Pulse Ox 96 01/22/18 07:00 Intake & Output 01/21/18 01/22/18 01/22/18 18:59 06:59 18:59 Intake Total 960 960 Balance 960 960 Intake: IV 960 960 Sodium Chloride 0.9% 1, 960 960 000 ml @ 120 mls/hr IV . Q8H20M LEELA Rx#:[id number] Other: # Voids 1 - Exam General appearance: The patient is alert, oriented, in no acute distress. HET: Head is normocephalic and atraumatic. Pupils are equal and reactive. Oropharynx is clear without lesions. Neck: Supple without lymphadenopathy. Trachea midline. Heart: S1 S2. Regular rate and rhythm. Lungs: No crackles or wheezes are heard. Abdomen: Soft, midepigastric tenderness, nondistended with bowel sounds. No peritoneal signs. No palpable organomegaly or masses. Extremities: Normal skin color and turgor. No cyanosis, rash, ulceration, clubbing, or edema. Radial and pedal pulses are 2/4 bilaterally. Neurological: No focal deficits. Strength and sensation are grossly intact. - Labs CBC & Chem 7: 01/21/18 08:30 01/21/18 08:30 Labs: Abnormal Lab Results - Last 24 Hours (Table) 01/21/18 01/21/18 Range/Units 08:30 08:30 RBC 2.75 L (3.80-5.40) m/uL Hgb 8.2 L (11.4-16.0) gm/dL Hct 25.4 L (34.0-46.0) % Lymphocytes # 0.9 L (1.0-4.8) k/uL Potassium 3.4 L (3.5-5.1) mmol/L Calcium 8.0 L (8.4-10.2) mg/dL AST 128 H (14-36) U/L ALT 304 H (9-52) U/L Alkaline Phosphatase 160 H (38-126) U/L Albumin 3.1 L (3.5-5.0) g/dL Microbiology - Last 24 Hours (Table) 01/19/18 20:50 Blood Culture - Preliminary Blood No Growth after 48 hours Assessment and Plan (1) Abdominal pain Narrative/Plan: 62-year-old female admitted with epigastric pain elevated liver enzymes and anemia without overt bleeding or gross hematuria. History of cholecystectomy for chronic cholecystitis in 2010 surgical pathology reported cholesterolosis. MRCP reported fluid collection posterior stomach greater curvature possible perforated peptic ulcer disease within the differential. Possible passage of choledocholithiasis also within the differential. Autoimmune hepatitis felt to be less likely. Current Visit: No Status: Acute Code(s): R10.9 - UNSPECIFIED ABDOMINAL PAIN SNOMED Code(s): 67638936 (2) Hepatitis Current Visit: Yes Status: Acute Code(s): K75.9 - INFLAMMATORY LIVER DISEASE , UNSPECIFIED SNOMED Code(s): 006640738 (3) Anemia Current Visit: Yes Status: Acute Code(s): D64.9 - ANEMIA, UNSPECIFIED SNOMED Code(s): 682467395 Plan: 1. Case was discussed with attending Dr. Garg as well as with Dr. Justin. EGD not planned at this time. We'll consult Gen. surgery. CT abdomen and pelvis with contrast to further evaluate. Zosyn 3.375 g every 8 hours. Protonix 40 iv twice a day. Nothing by mouth. We'll continue to follow with you. Assessment and plan a care discussed with Dr. Justin
[2018-01-22] MEDS ORDERED: PANTOPRAZOLE 40 MG/10 ML VIAL IVP SCH (09:30)
[2018-01-22 09:37] LABS: Basophils % (A) 1 %; Eosinophils # (A) 0.2 k/uL (0-0.7); Eosinophils % (A) 3 %; HCT 20.5 % (34.0-46.0); Lymphocytes # (A) 1.2 k/uL (1.0-4.8); Lymphocytes % (A) 19 %; MCH 29.2 pg (25.0-35.0); MCHC 31.3 g/dL (31.0-37.0); MCV 93.2 fL (80.0-100.0); Mean Platelet Volume 7.4; Monocytes # (A) 0.4 k/uL (0-1.0); Monocytes % (A) 6 %; Neutrophils # (A) 4.4 k/uL (1.3-7.7); Neutrophils % (A) 69 %; Platelet Count 211 k/uL (150-450); RDW 12.3 % (11.5-15.5); WBC 6.4 k/uL (3.8-10.6)
--- NOTE | 2018-01-22 09:42 | P.GSCN ---
History of Present Illness Consult date: 01/22/18 Reason for Consult: Peptic ulcer disease History of present illness: This is a 62-year-old female who's been admitted to the hospital. Patient's had complaints of epigastric and right upper quadrant pain. She had elevated liver enzymes. GI was consult. There was thought that she was having choledocholithiasis. Patient an MRCP performed which showed a fluid collection along the greater curvature stomach. I been asked to see her regarding possible gastric ulcer. The patient states her pain is improved from 2 days ago. However she still has some pain in the epigastric area. She denies any nausea or vomiting. Past Medical History Past Medical History: Cancer Additional Past Medical History / Comment(s): LARGE FIBROID TUMORS History of Any Multi-Drug Resistant Organisms: None Reported Past Surgical History: Cholecystectomy, Hysterectomy (And bilateral salpingo- oophorectomy) Additional Past Surgical History / Comment(s): HAMMER TOE SURGERY Additional Past Anesthesia/Blood Transfusion Reaction / Comm: SEVERELY CLAUSTROPHIC Past Psychological History: Anxiety, Depression Smoking Status: Never smoker Past Alcohol Use History: None Reported Past Drug Use History: None Reported - Past Family History Mother Family Medical History: No Reported History Father Family Medical History: No Reported History Medications and Allergies Home Medications Medication Instructions Recorded Confirmed Type LORazepam [Ativan] 1 mg PO TID 09/18/16 01/19/18 History Omeprazole [PriLOSEC] 20 mg PO DAILY 09/18/16 01/19/18 History Dicyclomine [Bentyl] 20 mg PO QID #15 tablet 01/19/18 01/19/18 Rx Ergocalciferol (Vitamin D2) 1 cap PO Q7D 01/19/18 01/19/18 History [Vitamin D2] Famotidine [Pepcid] 20 mg PO BID #14 tablet 01/19/18 01/19/18 Rx Nitrofurantoin Monohyd/M-Cryst 100 mg PO Q12HR #6 cap 01/19/18 01/19/18 Rx [Macrobid] Ondansetron Odt [Zofran ODT] 4 mg PO Q8HR PRN #10 tab 01/19/18 01/19/18 Rx Sertraline [Zoloft] 200 mg PO DAILY 01/19/18 01/19/18 History Allergies Allergy/AdvReac Type Severity Reaction Status Date / Time oseltamivir phosphate Allergy Mild HIVES Verified 01/19/18 20:47 [From Tamiflu] vancomycin Allergy SOB AND Verified 01/19/18 20:47 HIVES Surgical - Exam Vital Signs Temp Pulse Resp BP Pulse Ox 98.5 F 88 18 192/88 98 01/19/18 19:53 01/19/18 19:53 01/19/18 19:53 01/19/18 19:53 01/19/18 19:53 - General well developed, no distress - Eyes PERRL - ENT normal pinna - Neck no masses - Respiratory normal expansion - Cardiovascular Rhythm: regular - Abdomen Epigastric pain. There is no rebound or guarding. Abdomen: soft Results - Labs 01/21/18 08:30 01/21/18 08:30 Abnormal Lab Results - Last 24 Hours (Table) 01/21/18 Range/Units 08:30 Potassium 3.4 L (3.5-5.1) mmol/L Calcium 8.0 L (8.4-10.2) mg/dL AST 128 H (14-36) U/L ALT 304 H (9-52) U/L Alkaline Phosphatase 160 H (38-126) U/L Albumin 3.1 L (3.5-5.0) g/dL Microbiology - Last 24 Hours (Table) 01/19/18 20:50 Blood Culture - Preliminary Blood No Growth after 48 hours Diabetes panel 01/21/18 Range/Units 08:30 Sodium 140 (137-145) mmol/L Potassium 3.4 L (3.5-5.1) mmol/L Chloride 104 (98-107) mmol/L Carbon Dioxide 27 (22-30) mmol/L BUN 11 (7-17) mg/dL Creatinine 0.61 (0.52-1.04) mg/dL Glucose 77 (74-99) mg/dL Calcium 8.0 L (8.4-10.2) mg/dL AST 128 H (14-36) U/L ALT 304 H (9-52) U/L Alkaline Phosphatase 160 H (38-126) U/L Total Protein 6.5 (6.3-8.2) g/dL Albumin 3.1 L (3.5-5.0) g/dL Calcium panel 01/21/18 Range/Units 08:30 Calcium 8.0 L (8.4-10.2) mg/dL Albumin 3.1 L (3.5-5.0) g/dL Pituitary panel 01/21/18 Range/Units 08:30 Sodium 140 (137-145) mmol/L Potassium 3.4 L (3.5-5.1) mmol/L Chloride 104 (98-107) mmol/L Carbon Dioxide 27 (22-30) mmol/L BUN 11 (7-17) mg/dL Creatinine 0.61 (0.52-1.04) mg/dL Glucose 77 (74-99) mg/dL Calcium 8.0 L (8.4-10.2) mg/dL Adrenal panel 01/21/18 Range/Units 08:30 Sodium 140 (137-145) mmol/L Potassium 3.4 L (3.5-5.1) mmol/L Chloride 104 (98-107) mmol/L Carbon Dioxide 27 (22-30) mmol/L BUN 11 (7-17) mg/dL Creatinine 0.61 (0.52-1.04) mg/dL Glucose 77 (74-99) mg/dL Calcium 8.0 L (8.4-10.2) mg/dL Total Bilirubin 1.2 (0.2-1.3) mg/dL AST 128 H (14-36) U/L ALT 304 H (9-52) U/L Alkaline Phosphatase 160 H (38-126) U/L Total Protein 6.5 (6.3-8.2) g/dL Albumin 3.1 L (3.5-5.0) g/dL Assessment and Plan Assessment: MRCP suspicious for gastric ulcer. Patient will undergo computed tomography scan of the abdomen with oral contrast. We will follow with
[2018-01-22 09:46] LABS: HGB 6.4 gm/dL (11.4-16.0)
[2018-01-22 09:49] LABS: ALT 188 U/L (9-52); AST 58 U/L (14-36); Albumin 2.7 g/dL (3.5-5.0); Alkaline Phosphatase 129 U/L (38-126); Anion Gap 9 mmol/L; Blood Urea Nitrogen 9 mg/dL (7-17); Calcium 7.9 mg/dL (8.4-10.2); Carbon Dioxide 26 mmol/L (22-30); Chloride 107 mmol/L (98-107); Glucose 74 mg/dL (74-99); Potassium 3.3 mmol/L (3.5-5.1); Sodium 142 mmol/L (137-145); Total Bilirubin 0.9 mg/dL (0.2-1.3); Total Protein 5.8 g/dL (6.3-8.2)
[2018-01-22] MEDS: PIPERACILLIN-TAZOBACTAM 3.375 GM in DEXTROSE/WATER 1 50ML.BAG IVPB SCH ×2 (09:56→15:45)
[2018-01-22] MEDS: IOPAMIDOL-300 CONTRAST 30 ML VIAL (ORAL USE) PO PRN ×2 (09:57→11:06)
[2018-01-22] MEDS ORDERED: POTASSIUM CHLORIDE ER 20 MEQ TAB.ER PO STA (10:52)
[2018-01-22] MEDS: metroNIDAZOLE-NS PMX 500 MG in SALINE 1 100ML.BAG IVPB SCH ×2 (11:06→15:45)
--- NOTE | 2018-01-22 12:46 | CT ---
EXAMINATION TYPE: CT abdomen pelvis w con DATE OF EXAM: 01/22/2018 HISTORY: Elevated LFTs, nausea, hypertensive urgency. Prior cholecystectomy and hysterectomy. CT DLP: 1894mGycm Automated Exposure Control for Dose Reduction was Utilized. CONTRAST: CT scan of the abdomen and pelvis is performed with IV Contrast, patient injected with 100 mL of Isov ue 300. COMPARISON: None. FINDINGS: LUNG BASES: There is partial visualization of trace pleural effusions and bibasilar subsegmental atel ectasis. Small hiatal hernia is also seen containing residual contrast or reflux contrast. LIVER/GB: There are geographic areas of both hyperattenuation and hypoattenuation with focal area of hyperattenuation seen on series 3 image 28 measuring 6.7 x 3.2 cm a focal area of hypoattenuation see n on series 3 image 25 measuring 2.2 x 1.4 cm as well as a wedge-shaped area of geographic hypoattenu ation in the left hepatic lobe near the fissure for the falciform ligament. Overall the liver is diff usely heterogenous. There is mild periportal edema and small volume perihepatic ascites. A hypervascu lar lymph node within the adeel hepatis is new from the prior of 01/19/2018 measuring 1.5 cm in short axis on series 3 image 22. There is also periportal edema. Persistent enlargement of the extrahepatic common bile duct is unchanged from the prior and likely postsurgical. Given the diffuse heterogeneity of the hepatic parenchyma and periportal edema note is made of a montes nt appearing portal vein and portal splenic confluence. PANCREAS: Pancreas is diffusely hypoattenuated in enhancement and could relate to reactive change as this was not appreciated on the recent exam of 01/19/2018 and no focal peripancreatic fat stranding is seen.. SPLEEN: No significant abnormality is seen. ADRENALS: Adrenal glands are unremarkable. No nodularity or thickening. KIDNEYS: Few hypoattenuated cortical lesions are too small to accurately characterize. No hydronephro sis. BOWEL: No dilated bowel. The stomach is nondistended with diffuse rugal fold thickening that could re late to incomplete distention. Again as mentioned above free fluid surrounds the greater curvature. N umerous sigmoid colonic diverticula are present without pericolonic fat stranding. UTERUS/ADNEXA: Uterus is surgically absent. LYMPH NODES: As mentioned above there is a large periportal hyperdense lymph node with smaller peripo rtal lymph nodes that are less than 1 cm in short axis. OSSEOUS STRUCTURES: Multilevel degenerative change of the spine is very mild in degree. OTHER: There remains fluid surrounding the greater curvature the stomach that is high density concern ing for hemorrhage. No foci of extraluminal air are seen. No extravasation of contrast is seen outsid e of the gastric lumen or duodenum. Within the dependent pelvis there is high density fluid layering dependently and more low-density flu id more superficially with a fluid fluid level. IMPRESSION: 1. Findings suggesting hemoperitoneum with layering fluid fluid level in the pelvis and persistent fl uid surrounding the greater curvature the stomach concerning for underlying hemorrhaging peptic ulcer disease. No contrast extravasation is seen or evidence of pneumoperitoneum to silhouette of either d iagnosis. 2. Interval development of a hyperemic 1.5 cm periportal enlarged lymph node and persistent periporta l edema. Additionally new geographic areas of hyper and hypoattenuation within the hepatic parenchyma and intrahepatic periportal edema suggest altered physiology and possible hypoperfusion/shock liver. No portal venous thrombus is identified. Mild perihepatic ascites is now present. 3. Interval development of partially visualized trace bilateral pleural effusions and bibasilar atele ctasis. 4. Pancreatic parenchyma is now diffusely hypoattenuating and may be reactive to the adjacent inflamm atory change.
[2018-01-22 14:10] VITALS: BMI 31.3
[2018-01-22 14:23] VITALS: RESP 16
--- NOTE | 2018-01-22 14:53 | P.PN ---
Progress Note - Text Progress Note Date: 01/22/18 The patient's CAT scan was reviewed. There is evidence of hypoperfusion to the liver. This may explain her recent elevation of her liver function tests. The patient also has hemoperitoneum. Is unclear of etiology of the hemoperitoneum. This may be related to bleeding from the liver. Patient also has peptic ulcer disease. I do not think she has choledocholithiasis. Patient's vital signs are stable stable. She'll be observed. She may require another CAT scan. We will follow with you.
--- NOTE | 2018-01-22 16:06 | PN ---
PROGRESS NOTE DATE OF DICTATION: 01/22/2018 Patient is a 62-year-old white female admitted to the hospital with acute onset of severe epigastric pain and was noted to have elevated serum transaminases. She is status post gallbladder surgery many years ago for of the gallbladder. Because of the elevated LFTs and clinical suspicion for a CBD stone, she underwent an MRCP evaluation yesterday which revealed no evidence of filling defects in the common bile duct or biliary ductal dilation. However, there was fluid collection noted in the posterior stomach along the greater curvature suspicious for a perforated peptic ulcer. Surgery was consulted, and Dr. Fuentes evaluated the patient. CT of the abdomen was also ordered which was done this morning. The CT of the abdomen and pelvis showed findings suggestive of hemoperitoneum with layering of fluid along the greater curvature of the stomach, concerning for perforated peptic ulcer, but no free air noted. No extravasation of the contrast seen. Also there is development of some enlarged lymph nods in the periportal area and some hyper- and hypoattenuation within the hepatic parenchyma suspicious for ischemic hepatitis. The patient in the meantime continues to have worsening epigastric discomfort. No nausea, vomiting. She dropped her hemoglobin to 6.4 g/dL and currently is receiving 2 units of blood transfusion. PHYSICAL EXAMINATION: She appears comfortable. Temperature 97.5. Pulse rate is 87, blood pressure 129/61. HEENT examination unremarkable. Conjunctivae are pink, sclerae anicteric. Oral cavity no lesions. NECK: No JVD or lymph node enlargement. Chest was clear to auscultation. HEART: Regular rate and rhythm. ABDOMEN: Soft. There was severe tenderness in the epigastric area, mild tenderness in the left lower quadrant area and mild tenderness in the periumbilical area. No rebound or rigidity. EXTREMITIES: No pedal edema. SKIN: No rashes. NEURO: She is alert and oriented x3. No focal deficits. LAB: LABS FROM THIS MORNING: WBC 6.4, hemoglobin 6.4, and platelets are normal. AST is down to 58. ALT is down to 188. Alkaline phosphatase 129. Total bilirubin is 0.9. IMPRESSION: This is a lady who presents with acute onset of severe epigastric pain for the last few days' duration and initially noted to have significant elevation of serum transaminases in the 600 range and bilirubin up to 2.4. MRCP done last night showed no evidence of CBD stone. However, there was some fluid collection along the greater curvature of the stomach suspicious for perforated peptic ulcer disease. CT of the abdomen and pelvis done today confirmed possible localized perforation along the posterior part of the stomach. In the meantime, her hemoglobin dropped by 3 grams. Currently she is receiving 2 units of blood transfusion. RECOMMENDATIONS: 1. Surgical consultation has already been obtained, and at this time patient elects to be transferred to [facility] or other tertiary center for further management. 2. In the meantime, continue with IV Protonix 40 mg q.12 hours. 3. I agree with blood transfusion. 4. Broad-spectrum antibiotics. 5. Keep her n.p.o. 6. Discussed with Dr. Garg, who is making arrangements for transfer to a tertiary center. Thank you for this consultation. MMODL / IJN: [id number] /
[2018-01-22 16:18] VITALS: BP 139/75; PULSE 77; TEMP 97.9
[2018-01-22 17:33] LABS: HCT 27.8 % (34.0-46.0); MCH 30.6 pg (25.0-35.0); MCHC 33.9 g/dL (31.0-37.0); MCV 90.1 fL (80.0-100.0); Mean Platelet Volume 8.1; Platelet Count 196 k/uL (150-450); RBC 3.08 m/uL (3.80-5.40); RDW 12.9 % (11.5-15.5); WBC 6.8 k/uL (3.8-10.6)
[2018-01-22 17:34] LABS: HGB 9.4 gm/dL (11.4-16.0)
--- NOTE | 2018-01-22 17:54 | PN ---
PROGRESS NOTE DATE OF SERVICE: 01/21/2018 PRESENTING COMPLAINT: Abdominal pain. INTERVAL HISTORY: This patient was seen by me yesterday on 01/21/2018. Presented with abdominal pain; still somewhat present, but the patient's liver enzymes have been coming down. No nausea, vomiting. Lying in bed. No fever, no chills. REVIEW OF SYSTEMS: Done for constitutional, cardiovascular, GI, pulmonary; relevant findings as above. CURRENT MEDICATIONS: Reviewed. EXAMINATION: Temperature 98.9, pulse 82, respirations 16, blood pressure 146/75, pulse ox 95% on 2L. GENERAL APPEARANCE: Lying in bed, tired-appearing. EYES: Pupils equal. Conjunctivae normal. HEENT: External nose and ears normal. Oral cavity dry. NECK: JVD not raised. Mass not palpable. RESPIRATORY: Effort normal. LUNGS: Fair air entry. CARDIOVASCULAR: First and second sounds normal. No edema. ABDOMEN: Epigastric tenderness present. No guarding, rigidity. Liver, spleen not palpable. No mass palpable. PSYCHIATRY: Alert and oriented x3. Mood and affect normal. INVESTIGATIONS: White count 7, hemoglobin 8.2. Potassium 3.4. Bilirubin 1.2, AST 128, ALT 304. Albumin 3.1. Cholangiopancreatography MRI did not show any intrahepatic dilatation. ASSESSMENT: 1. Acute abdominal pain felt to be from residual bile duct stone, LFTs improving. No fever, no chills. 2. Microscopic hematuria. 3. Obesity, BMI 31.3. 4. Anxiety, not otherwise specified. 5. Depression, not otherwise specified. 6. Gastroesophageal reflux disease. PLAN: Awaiting further input from GI. Continue current medication and treatment plan. Care was discussed with the patient. The patient also seen by Dr. White from Urology, not for any further intervention per them. MMODL / IJN: [id number] /
--- NOTE | 2018-01-23 04:52 | DS ---
DISCHARGE SUMMARY DATE OF ADMISSION: 01/20/2018. DATE OF TRANSFER: 01/22/2018. FINAL DIAGNOSES: 1. Possible perforated stomach ulcer localized. 2. Microscopic hematuria. 3. Obesity BMI 31.3. 4. Anxiety not otherwise specified. 5. Depression, not otherwise specified. 6. Gastroesophageal reflux disease. 7. Hypoalbuminemia as an acute phase reactant. CONSULTATION: 1. Dr. Chapa from Gastroenterology. 2. Dr. White from Urology. 3. Dr. Fuentes from General surgery. HOSPITAL COURSE: This patient presented with acute abdominal pain. Initially patient had increased LFTs, increased alkaline phosphatase and increased bilirubin which was compatible with bile duct stone. The patient actually was getting better biochemically, but the patient kept having abdominal pain. The patient's belly there was no guarding. No rigidity. The patient had a hemoglobin 11.2 which did drop down to 6.4. Two units of blood was given this morning. Hemoglobin did come up to 9.4. CT scan of the abdomen and pelvis done this morning did show suggestion of hemoperitoneum. I did discuss with Dr. Fuentes. He wanted to watch the patient and follow-through. In the meantime, patient expressed the need for a higher level of care, transfer, which was felt to be reasonable given that we may have to do tertiary radiology to attempt embolic clotting. I did talk to the surgeon at [facility] who did accept the patient. Also discussed with Dr. Justin from Gastroenterology and the patient wanted to go ahead with the transfer. On examination, abdomen tender. No guarding or rigidity. The patient is hemodynamically stable at the time of transfer with a blood pressure was 139/75, heart rate was 77. The patient will be transferred to [facility]. Prognosis is guarded. Stable at the time of transfer. Discharge planning more than [address] Cruz. The patient also had a MRCP that was unremarkable. Discharge planning more than 35 minutes. MMODL / IJN: [id number] /
== END 2018-01-22 17:42 | disposition short-term general hospital (02) | DRG 380 ==
LOC: EC 19:49 → 4MS4W 01-20 00:44 → OBSVTOIN 01-20 08:45
PROVIDERS: ADMIT Hospitalist; ATTEND Hospitalist
PROC: 30230N1 Transfusion of Nonautologous Red Blood Cells into Peripheral Vein, Open Approach (ICD-10-PCS; principal; 2018-01-22)
DX: K25.5 Chronic or unspecified gastric ulcer with perforation (principal); K66.1 Hemoperitoneum; I16.1 Hypertensive emergency; D64.9 Anemia, unspecified; E66.9 Obesity, unspecified; E88.09 Other disorders of plasma-protein metabolism, not elsewhere classified; F32.9 Major depressive disorder, single episode, unspecified; F40.240 Claustrophobia; K21.9 Gastro-esophageal reflux disease without esophagitis; K75.9 Inflammatory liver disease, unspecified; N39.3 Stress incontinence (female) (male); R31.21 Asymptomatic microscopic hematuria; R19.7 Diarrhea, unspecified; F41.9 Anxiety disorder, unspecified; Z68.31 Body mass index [BMI] 31.0-31.9, adult; Z79.899 Other long term (current) drug therapy; Z88.1 Allergy status to other antibiotic agents; Z88.8 Allergy status to other drugs, medicaments and biological substances; Z90.49 Acquired absence of other specified parts of digestive tract; Z90.710 Acquired absence of both cervix and uterus; Z90.79 Acquired absence of other genital organ(s); Z90.722 Acquired absence of ovaries, bilateral; Z85.9 Personal history of malignant neoplasm, unspecified
CPT/HCPCS: 36415; 74018; 74177; 74181; 76705; 80053; 80074; 81001; 82150; 82248; 83605; 83690; 84484; 85025; 85027; 85610; 85730; 86850; 86900; 86901; 86920; 87040; 93005; 96361; 96374; 96375; 96376; 99285

== ENCOUNTER 2018-03-17 10:28 | Emergency (ER) | payer OTHER ==
[2018-03-17] MEDS ORDERED: SODIUM CHLORIDE 0.9% 500 ML IV STA (10:36)
[2018-03-17] MEDS ORDERED: ONDANSETRON 4 MG/2 ML VIAL IVP STA (10:36)
[2018-03-17] MEDS ORDERED: HYDROmorphone 0.5 MG/0.5 ML SYRINGE IVP STA ×2 (10:36→13:21)
--- NOTE | 2018-03-17 10:44 | ED ---
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 Patient also states she has a hiatal hernia. Patient comes in today stating she has had epigastric abdominal pain since early this morning and having dry heaves. Patient states she continues to be nauseated and continues to have pain. Patient denies any chest pain difficult breathing shortness of breath. Patient denies any diarrhea. Patient denies being lightheaded or dizzy. Patient states she has had similar pain in the past which has been attributed to her hiatal hernia. Patient denies any back pain. Patient denies any dysuria hematuria urinary frequency. Patient denies any recent fever chills or cough. (Maicol Handy) - Related Data Home Medications Medication Instructions Recorded Confirmed LORazepam [Ativan] 1 mg PO HS 09/18/16 03/17/18 Omeprazole [PriLOSEC] 20 mg PO DAILY 09/18/16 03/17/18 Ergocalciferol (Vitamin D2) 1 cap PO MO 01/19/18 03/17/18 [Vitamin D2] Sertraline [Zoloft] 100 mg PO BID 01/19/18 03/17/18 Gabapentin [Neurontin] 300 mg PO TID PRN 03/17/18 03/17/18 HYDROcodone/APAP 5-325MG [[place] 1 tab PO HS PRN 03/17/18 03/17/18 5-325] Lisinopril [Zestril] 10 - 20 mg PO DAILY 03/17/18 03/17/18 Methocarbamol [Robaxin] 750 mg PO TID PRN 03/17/18 03/17/18 Previous Rx's Medication Instructions Recorded Dicyclomine [Bentyl] 20 mg PO QID #15 tablet 01/19/18 Famotidine [Pepcid] 20 mg PO BID #14 tablet 01/19/18 Ondansetron Odt [Zofran ODT] 4 mg PO Q8HR PRN #10 tab 01/19/18 Allergies Allergy/AdvReac Type Severity Reaction Status Date / Time oseltamivir phosphate Allergy Mild Rash/Hives Verified 03/17/18 11:07 [From Tamiflu] vancomycin Allergy SOB AND Verified 03/17/18 11:07 HIVES Review of Systems ROS Other: All systems not noted in ROS Statement are negative. <Maicol Handy - Last Filed: 03/17/18 15:53> ROS Other: All systems not noted in ROS Statement are negative. <Maicol Kirkland - Last Filed: 03/17/18 19:17> ROS Statement: Those systems with pertinent positive or pertinent negative responses have been documented in the HPI. Past Medical History Past Medical History: Cancer Additional Past Medical History / Comment(s): LARGE FIBROID TUMORS History of Any Multi-Drug Resistant Organisms: None Reported Past Surgical History: Cholecystectomy, Hysterectomy (And bilateral salpingo- oophorectomy) Additional Past Surgical History / Comment(s): HAMMER TOE SURGERY Additional Past Anesthesia/Blood Transfusion Reaction / Comment(s): SEVERELY CLAUSTROPHIC Past Psychological History: Anxiety, Depression Smoking Status: Never smoker Past Alcohol Use History: None Reported Past Drug Use History: None Reported - Past Family History Mother Family Medical History: No Reported History Father Family Medical History: No Reported History <Maicol Handy - Last Filed: 03/17/18 15:53> General Exam <Maicol Handy - Last Filed: 03/17/18 15:53> General appearance: alert, in no apparent distress Head exam: Present: atraumatic, normocephalic, normal inspection Eye exam: Present: normal appearance, PERRL, EOMI. Absent: scleral icterus, conjunctival injection, periorbital swelling ENT exam: Present: normal exam, mucous membranes moist Neck exam: Present: normal inspection. Absent: tenderness, meningismus, lymphadenopathy Respiratory exam: Present: normal lung sounds bilaterally. Absent: respiratory distress, wheezes, rales, rhonchi, stridor Cardiovascular Exam: Present: regular rate, normal rhythm, normal heart sounds. Absent: systolic murmur, diastolic murmur, rubs, gallop, clicks GI/Abdominal exam: Present: soft, normal bowel sounds. Absent: distended, tenderness, guarding, rebound, rigid Extremities exam: Present: normal inspection, full ROM, normal capillary refill. Absent: tenderness, pedal edema, joint swelling, calf tenderness Back exam: Present: normal inspection Neurological exam: Present: alert, oriented X3, CN II-XII intact Psychiatric exam: Present: normal affect, normal mood Skin exam: Present: warm, dry, intact, normal color. Absent: rash <Maicol Kirkland - Last Filed: 03/17/18 19:17> - General Exam Comments Initial Comments: EKG shows normal sinus rhythm at 83 bpm TN interval 114 QRS is 62 QT interval 396 QTC is 465. Patient's EKG shows no ST segment elevation or depression or T wave abnormalities are noted (Maicol Handy) Vital Signs 03/17/18 03/17/18 03/17/18 10:32 10:43 11:15 Temperature 98.6 F Pulse Rate 84 81 75 Respiratory 18 18 16 Rate Blood Pressure 179/111 164/100 164/98 O2 Sat by Pulse 96 96 98 Oximetry 03/17/18 03/17/18 03/17/18 11:20 12:06 13:28 Temperature Pulse Rate 85 75 Respiratory 18 18 Rate Blood Pressure 154/92 154/97 175/90 O2 Sat by Pulse 98 98 Oximetry 03/17/18 03/17/18 14:00 15:30 Temperature Pulse Rate 65 69 Respiratory 18 18 Rate Blood Pressure 149/85 141/80 O2 Sat by Pulse 98 97 Oximetry Medical Decision Making - Lab Data Result diagrams: 03/17/18 10:35 03/17/18 10:35 <Maicol Handy - Last Filed: 03/17/18 15:53> - Lab Data Result diagrams: 03/17/18 10:35 03/17/18 10:35 <Maicol Kirkland - Last Filed: 03/17/18 19:17> - Medical Decision Making CAT scan showed no acute findings when compared to her previous CAT scan. Patient states she was uncomfortable going home because she continued to have abdominal pain. Patient did not want to be transferred at [facility] at this time (Maicol Handy) 62 female the ER for evaluation. Patient was essay for evaluation regarding abnormal abdominal pain. Severe abdominal pain. Patient at this point except in transfer to [facility], we did speak with [phone] and patient transfer. Again patient's medical records thoroughly reviewed. Patient is not a stable and patient at this hospital at this time (Maicol Kirkland) - Lab Data Lab Results 03/17/18 03/17/18 03/17/18 Range/Units 10:35 10:35 10:35 WBC 7.7 (3.8-10.6) k/uL RBC 4.26 (3.80-5.40) m/uL Hgb 12.3 (11.4-16.0) gm/dL Hct 37.5 (34.0-46.0) % MCV 88.1 (80.0-100.0) fL MCH 28.9 (25.0-35.0) pg MCHC 32.8 (31.0-37.0) g/dL RDW 12.9 (11.5-15.5) % Plt Count 316 (150-450) k/uL Neutrophils % 75 % Lymphocytes % 17 % Monocytes % 5 % Eosinophils % 1 % Basophils % 1 % Neutrophils # 5.8 (1.3-7.7) k/uL Lymphocytes # 1.3 (1.0-4.8) k/uL Monocytes # 0.4 (0-1.0) k/uL Eosinophils # 0.1 (0-0.7) k/uL Basophils # 0.1 (0-0.2) k/uL PT (9.0-12.0) sec INR (<1.2) APTT (22.0-30.0) sec Sodium 139 (137-145) mmol/L Potassium 4.3 (3.5-5.1) mmol/L Chloride 104 (98-107) mmol/L Carbon Dioxide 27 (22-30) mmol/L Anion Gap 8 mmol/L BUN 10 (7-17) mg/dL Creatinine 0.80 (0.52-1.04) mg/dL Est GFR (CKD-EPI)AfAm >90 (>60 ml/min/1.73 sqM) Est GFR (CKD-EPI)NonAf 78 (>60 ml/min/1.73 sqM) Glucose 108 H (74-99) mg/dL Calcium 10.0 (8.4-10.2) mg/dL Total Bilirubin 0.7 (0.2-1.3) mg/dL AST 102 H (14-36) U/L ALT 72 H (9-52) U/L Alkaline Phosphatase 115 (38-126) U/L Troponin I <0.012 (0.000-0.034) ng/mL Total Protein 9.7 H (6.3-8.2) g/dL Albumin 4.6 (3.5-5.0) g/dL Amylase 54 (30-110) U/L Lipase 100 (23-300) U/L 03/17/18 Range/Units 10:35 WBC (3.8-10.6) k/uL RBC (3.80-5.40) m/uL Hgb (11.4-16.0) gm/dL Hct (34.0-46.0) % MCV (80.0-100.0) fL MCH (25.0-35.0) pg MCHC (31.0-37.0) g/dL RDW (11.5-15.5) % Plt Count (150-450) k/uL Neutrophils % % Lymphocytes % % Monocytes % % Eosinophils % % Basophils % % Neutrophils # (1.3-7.7) k/uL Lymphocytes # (1.0-4.8) k/uL Monocytes # (0-1.0) k/uL Eosinophils # (0-0.7) k/uL Basophils # (0-0.2) k/uL PT 9.8 (9.0-12.0) sec INR 1.0 (<1.2) APTT 15.0 L (22.0-30.0) sec Sodium (137-145) mmol/L Potassium (3.5-5.1) mmol/L Chloride (98-107) mmol/L Carbon Dioxide (22-30) mmol/L Anion Gap mmol/L BUN (7-17) mg/dL Creatinine (0.52-1.04) mg/dL Est GFR (CKD-EPI)AfAm (>60 ml/min/1.73 sqM) Est GFR (CKD-EPI)NonAf (>60 ml/min/1.73 sqM) Glucose (74-99) mg/dL Calcium (8.4-10.2) mg/dL Total Bilirubin (0.2-1.3) mg/dL AST (14-36) U/L ALT (9-52) U/L Alkaline Phosphatase (38-126) U/L Troponin I (0.000-0.034) ng/mL Total Protein (6.3-8.2) g/dL Albumin (3.5-5.0) g/dL Amylase (30-110) U/L Lipase (23-300) U/L Disposition Time of Disposition: 15:53 <Maicol Handy - Last Filed: 03/17/18 15:53> Is patient prescribed a controlled substance at d/c from ED?: No - Out of Hospital Transfer - Req. Specs Out of Hospital Transfer - Requested Specifics: Other Emergency Center ([facility]) <Maicol Kirkland - Last Filed: 03/17/18 19:17> Clinical Impression: Epigastric abdominal pain, Hepatic artery aneurysm, Pelvic pain, Nausea & vomiting, Abdominal pain Disposition: OTHER INSTITUTION NOT DEFINED Condition: Fair Referrals: Domenico Cruz MD [Primary Care Provider] - 1-2 days
[2018-03-17 11:10] LABS: Basophils # (A) 0.1 k/uL (0-0.2); Basophils % (A) 1 %; Eosinophils # (A) 0.1 k/uL (0-0.7); Eosinophils % (A) 1 %; HCT 37.5 % (34.0-46.0); HGB 12.3 gm/dL (11.4-16.0); Lymphocytes # (A) 1.3 k/uL (1.0-4.8); Lymphocytes % (A) 17 %; MCH 28.9 pg (25.0-35.0); MCHC 32.8 g/dL (31.0-37.0); MCV 88.1 fL (80.0-100.0); Mean Platelet Volume 7.5; Monocytes # (A) 0.4 k/uL (0-1.0); Monocytes % (A) 5 %; Neutrophils # (A) 5.8 k/uL (1.3-7.7); Neutrophils % (A) 75 %; Platelet Count 316 k/uL (150-450); RBC 4.26 m/uL (3.80-5.40); RDW 12.9 % (11.5-15.5); WBC 7.7 k/uL (3.8-10.6)
[2018-03-17 11:21] LABS: ALT 72 U/L (9-52); AST 102 U/L (14-36); Albumin 4.6 g/dL (3.5-5.0); Alkaline Phosphatase 115 U/L (38-126); Amylase 54 U/L (30-110); Anion Gap 8 mmol/L; Blood Urea Nitrogen 10 mg/dL (7-17); Carbon Dioxide 27 mmol/L (22-30); Chloride 104 mmol/L (98-107); Glucose 108 mg/dL (74-99); Lipase 100 U/L (23-300); Potassium 4.3 mmol/L (3.5-5.1); Sodium 139 mmol/L (137-145); Total Bilirubin 0.7 mg/dL (0.2-1.3); Total Protein 9.7 g/dL (6.3-8.2)
[2018-03-17 12:21] LABS: Prothrombin Time 9.8 sec (9.0-12.0)
[2018-03-17] MEDS ORDERED: hydrALAZINE HCL 20 MG/ML 1 ML VIAL IVP STA (13:21)
--- NOTE | 2018-03-17 13:57 | CT ---
EXAMINATION TYPE: CT abdomen pelvis w con DATE OF EXAM: 03/17/2018 COMPARISON: 01/22/2018 and 01/19/2018 HISTORY: 62-year-old female with abdominal pain TECHNIQUE: Contiguous axial scanning of the abdomen and pelvis following administration of 100 ml Iso noé 300 IV contrast. Delayed images through the kidneys and coronal/sagittal reconstructions perform ed. CT DLP: 1081.90 mGycm Automated exposure control for dose reduction was used. FINDINGS: Heart is normal size without pericardial effusion. Lung bases clear without pleural effusion. Small hiatal hernia. That lesion right hepatic lobe. Interval intra-arterial embolization left hepatic artery. Cholecystec kely clips. No biliary ductal dilatation seen. Portal venous system appears patent allowing for some limitations due to metal artifact. Adrenal glands, left kidney, spleen, and pancreas show no gross abnormal body. A couple subcentimeter hypodensity lower pole right kidney too small for accurate CT characterization, unchanged from prior , likely cysts. No dilated small bowel There may be an accessory left hepatic artery from the left gastric artery, refer to axial images 13 through 16. There is some ectasia is artery as it extends to the level of the left portal vein.. No dilated small bowel, free fluid, or free air. No mesenteric or retroperitoneal lymphadenopathy. Normal appendix. Some fluid-filled small bowel loops in the lower abdomen and pelvis in the stool in the right side of the colon. Otherwise, the remainder of the colon has [id number] stool. Mild sigmoid diverticul osis. No pericolonic inflammatory change. Bladder urine distended. Uterus surgically absent. Neither ovary clearly seen. No abnormal fluid bertin ection in the pelvis or pelvic lymphadenopathy. Bones: Mild degenerative changes at the hips. Additional degenerative changes lower lumbar spine. No osseous destructive process. IMPRESSION: 1. 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 THERE IS SOME PERSISTENT PERFUSION VARIATION WITHIN THE RIGHT LIVER LOBE BUT WITHOUT CONVINCING EVIDENCE FOR THROMBUS IN THE PORTAL VEIN. 2. AN ECTATIC, IRREGULARLY DILATED ARTERY PARALLELING THE LEFT PORTAL VEIN (AXIAL IMAGE 16) SHOWS REBECCA ARENT COMMUNICATION WITH THE LEFT GASTRIC ARTERY (AXIAL IMAGE 13). IN TURN, THE LEFT GASTRIC ARTERY M AY HAVE FISTULOUS COMMUNICATION WITH THE LEFT CORONARY VEIN (AXIAL IMAGE 18 THROUGH 20). CORRELATE FO R POSSIBLE ETIOLOGIES OF THIS ABNORMAL VASCULARITY SUCH TRAUMA OR VASCULITIS. WE NOTE THAT THE PAT IENT'S NOW COILED HEPATIC ARTERY PSEUDOANEURYSM DEVELOPED OVER THE COURSE OF ONLY 2 DAYS (01/19/2018 V S 01/22/2018). CONSIDER CONVENTIONAL VISCERAL ANGIOGRAPHY. 3. SOME PROMINENT FLUID FILLED SMALL BOWEL LOOPS IN THE LOWER ABDOMEN AND PELVIS AND LIQUID STOOL IN THE RIGHT SIDE OF THE COLON. NONSPECIFIC FINDINGS WHICH MAY REPRESENT ENTERITIS.
[2018-03-17] MEDS ORDERED: SODIUM CHLORIDE 0.9% 1,000 ML IV ONE (15:54)
[2018-03-17] MEDS ORDERED: HYDROmorphone 1 MG/ML 1 ML SYRINGE IVP PRN (15:55)
[2018-03-17] MEDS ORDERED: PANTOPRAZOLE 40 MG/10 ML VIAL IVP SCH (17:14)
--- NOTE | 2018-03-17 18:05 | HP ---
HISTORY AND PHYSICAL HISTORY AND PHYSICAL AND DISCHARGE SUMMARY: CHIEF COMPLAINT: Abdominal pain. HISTORY OF PRESENT ILLNESS: This 62-year-old woman with a past medical history of large fibroid tumors, cholecystectomy, hysterectomy, headache, recent complicated medical history. The patient was admitted with epigastric pain in January earlier. Subsequently, patient had possibly intra-abdominal bleeding and possibility of perforated stomach was also suspected. Patient was transferred to [facility] and at the [facility], patient was found to have hepatic aneurysms at and multiple coilings were done. The patient came home. Now currently the patient is complaining of epigastric pain which is a pressure type of pain which is felt in the epigastrium and mostly left-sided pain and LFTs are slightly elevated. The CT scan done showed multiple abnormalities, including interval pseudoaneurysm coiling and also ectatic irregularly dilated veins and also possibly a fistulous communication with the left vein. The possibility of vasculitis is considered and the patient is being closely monitored at this time. There is no history of any fever, rigors. No history of headache, loss of consciousness, seizures. PAST MEDICAL HISTORY: History of large fibroid tumors, cholecystectomy, anxiety, depression, claustrophobia. MEDICATIONS PRIOR TO ADMISSION: Include home medications are: 1. Zoloft 200 mg p.o. b.i.d. 2. Zofran 4 mg q.8h p.r.n. 3. Prilosec 20 mg daily p.r.n. 4. Robaxin 750 mg t.i.d. p.r.n. 5. Zestril 20 mg p.o. daily. 6. Ativan 1 mg q.h.s. 7. Hydrocodone 5 mg q.h.s. 8. Neurontin 300 mg p.o. t.i.d. p.r.n. 9. Pepcid 20 mg p.o. b.i.d. 10.Vitamin D3 1 p.o. b.i.d. 11.Bentyl 20 mg p.o. q.i.d. ALLERGIES: TAMIFLU, VANCOMYCIN. FAMILY HISTORY: No history of heart disease or strokes in the family. SOCIAL HISTORY: No history of smoking. No history of alcohol intake. REVIEW OF SYSTEMS: ENT: No diminished hearing, diminished vision. CARDIOVASCULAR: No angina, palpitations. RESPIRATORY: No cough. GI: As mentioned earlier. : No dysuria. NERVOUS: No numbness or weakness. ALLERGY/IMMUNOLOGY: No asthma or hay fever. MUSCULOSKELETAL: As mentioned earlier. HEMATOLOGY/ONCOLOGY: No history of anemia. ENDOCRINE: No history of diabetes, hypothyroidism. CONSTITUTIONAL: As mentioned earlier. DERMATOLOGY: Negative. RHEUMATOLOGY: Negative. PSYCHIATRY: As mentioned earlier. PHYSICAL EXAM: Alert and oriented x3. Pulse is 65, blood pressure 114/85, respirations 18, temperature normal, pulse ox 98% on 2L. HEENT: Conjunctivae normal. Oral mucosa moist. NECK: No jugular venous distention. No carotid bruits. No lymph node enlargement. CARDIOVASCULAR: S1, S2 muffled. No S3, S4. RESPIRATORY: Breath sounds diminished in the bases. No rhonchi. No crackles. ABDOMEN: Soft, mild diffuse tenderness present. No guarding. There is no mass palpable. LEGS: No edema. No swelling. NERVOUS SYSTEM: Higher functions as mentioned earlier. Moves all 4 limbs. No focal motor or sensory deficits. LYMPHATIC: No lymphadenopathy in neck or axillae. SKIN: No ulcer, rash or bleeding. LABS: CBC within normal limits. Glucose 108. AST is 102, ALT 72. FINAL DIAGNOSES: 1. Abdominal pain, possible gastritis, possibly related to pseudoaneurysms. 2. History of recent hepatic intra and extrahepatic pseudoaneurysms and coiling. 3. Multiple abnormalities in the CT scan. 4. Increased AST, ALT. 5. History of large fibroid tumors. 6. Cholecystectomy. 7. Hysterectomy. 8. History of anxiety and depression. RECOMMENDATION AND DISCUSSION: In this 58-year-old woman who presented with multiple complex medical issues, we will monitor the patient closely, continue the current medical management and continue symptomatic treatment. I would recommend proton pump inhibitors and pain medications. The patient is started on Dilaudid and I also discussed the case at length with Dr. Justin on the phone, who has seen the patient during the earlier admission. Dr. Justin recommended transfer to [facility] for further evaluation and treatment. See orders for further details and I also discussed with in the ER for the patient to be transferred to [facility]. MMODL / IJN: [id number] / MTDD
[2018-03-17 19:54] VITALS: BP 144/81; PULSE 77; RESP 16; TEMP 98.9
== END 2018-03-17 20:00 | disposition other institution (70) ==
LOC: EC 10:28 → UNDOADMIN 15:54 → 4MS4W 15:54 → EC 20:00
DX: I72.8 Aneurysm of other specified arteries (principal); F41.9 Anxiety disorder, unspecified; F32.9 Major depressive disorder, single episode, unspecified; K44.9 Diaphragmatic hernia without obstruction or gangrene; Z90.49 Acquired absence of other specified parts of digestive tract; Z90.722 Acquired absence of ovaries, bilateral; Z90.710 Acquired absence of both cervix and uterus; Z79.899 Other long term (current) drug therapy; Z88.1 Allergy status to other antibiotic agents; Z88.8 Allergy status to other drugs, medicaments and biological substances
CPT/HCPCS: 99285; 96374; 96375 ×3; 96376 ×2; 96361 ×3; 36415; 93005; 80053; 82150; 83690; 84484; 85025; 85610; 85730; 74177; J0360; J2405; J1170 ×2; C9113; Q9967

== ENCOUNTER → 2018-04-03 | Outpatient (CLI) | payer OTHER ==
[2018-04-03 15:14] LABS: HGB 10.9 gm/dL (11.4-16.0); MCH 29.2 pg (25.0-35.0); MCHC 32.1 g/dL (31.0-37.0); MCV 90.9 fL (80.0-100.0); Mean Platelet Volume 7.5; Platelet Count 331 k/uL (150-450); RBC 3.74 m/uL (3.80-5.40); WBC 5.4 k/uL (3.8-10.6)
[2018-04-03 15:24] LABS: Anion Gap 7 mmol/L; Blood Urea Nitrogen 12 mg/dL (7-17); Calcium 9.7 mg/dL (8.4-10.2); Carbon Dioxide 31 mmol/L (22-30); Chloride 104 mmol/L (98-107); Glucose 95 mg/dL (74-99); Potassium 4.1 mmol/L (3.5-5.1); Sodium 142 mmol/L (137-145)
== END | disposition home or self-care (01) ==
LOC: RADXRMAIN 14:06
PROVIDERS: ATTEND Internal Medicine Nephrology
DX: I10 Essential (primary) hypertension (principal); K75.9 Inflammatory liver disease, unspecified; R31.21 Asymptomatic microscopic hematuria; R10.9 Unspecified abdominal pain
CPT/HCPCS: 80048; 85027

== ENCOUNTER → 2019-02-17 | Outpatient (CLI) | payer OTHER ==
--- NOTE | 2019-02-17 17:04 | XR ---
EXAMINATION TYPE: XR bone survey complete DATE OF EXAM: 02/17/2019 COMPARISON: NONE HISTORY: Z71.3, D 47.2, J 43.9, R07.9 Frontal and lateral views of the spine, frontal views of the proximal upper and lower extremities, 2 views of the calvarium, frontal view of the pelvis, frontal view of the chest submitted on a total of 16 images. Bone mineralization is reduced. Degenerative disc changes are present in the visualized spine. There is minimal anterolisthesis grade 1 C4-5. Loss of disc height present at C3-4. There are facet arthrop athy changes present. Postprocedural changes are noted in the right upper quadrant. No punched-out le sions to suggest multiple myeloma. Spinal curvature noted in the lumbar spine. Sclerosis present in t he posterior elements. There is loss of disc levels. IMPRESSION: Osteopenia. Degenerative disc disease and facet arthropathy
== END | disposition home or self-care (01) ==
LOC: RADXRMAIN 11:21
PROVIDERS: ATTEND Internal Medicine Hematology & Oncology
DX: D47.2 Monoclonal gammopathy (principal); J43.9 Emphysema, unspecified; M85.88 Other specified disorders of bone density and structure, other site; M50.30 Other cervical disc degeneration, unspecified cervical region; M46.92 Unspecified inflammatory spondylopathy, cervical region; R07.9 Chest pain, unspecified; Z71.3 Dietary counseling and surveillance
CPT/HCPCS: 77075

== ENCOUNTER 2019-03-08 10:38 | Emergency (ER) | payer OTHER ==
[2019-03-08] MEDS ORDERED: MORPHINE SULFATE 4 MG/ML SYRINGE IVP STA (11:04)
[2019-03-08] MEDS ORDERED: ONDANSETRON 4 MG/2 ML VIAL IVP STA (11:04)
[2019-03-08 11:51] LABS: Basophils % (A) 0 %; Eosinophils # (A) 0.3 k/uL (0-0.7); Eosinophils % (A) 5 %; HCT 28.8 % (34.0-46.0); HGB 9.4 gm/dL (11.4-16.0); Lymphocytes # (A) 1.3 k/uL (1.0-4.8); Lymphocytes % (A) 23 %; MCH 29.6 pg (25.0-35.0); MCHC 32.7 g/dL (31.0-37.0); MCV 90.6 fL (80.0-100.0); Monocytes # (A) 0.6 k/uL (0-1.0); Monocytes % (A) 11 %; Neutrophils # (A) 3.4 k/uL (1.3-7.7); Neutrophils % (A) 60 %; Platelet Count 205 k/uL (150-450); RBC 3.17 m/uL (3.80-5.40); WBC 5.7 k/uL (3.8-10.6)
[2019-03-08 12:00] LABS: Albumin 4.2 g/dL (3.5-5.0); Calcium 9.2 mg/dL (8.4-10.2); Potassium 3.7 mmol/L (3.5-5.1); Total Bilirubin 0.5 mg/dL (0.2-1.3)
[2019-03-08] MEDS ORDERED: SODIUM CHLORIDE 0.9% 1,000 ML IV ONE (12:13)
--- NOTE | 2019-03-08 12:54 | CT ---
EXAMINATION TYPE: CT lumbar spine wo con DATE OF EXAM: 03/08/2019 12:31 PM COMPARISON: CT scan 03/17/2018 HISTORY: Pain Automated exposure control for dose reduction was used. Unenhanced CT of the lumbar spine was performed. Bone and soft tissue window settings are submitted as well as coronal and sagittal reconstructions. Assessment of the spinal canal is limited due to resolution. There are 2 hyperdense lesions involving right kidney the largest which measures 1.2 cm. Clearly seen on the prior CT scan. Recommend ultrasound to determine if this is related to hemorrhagi c cyst or solid lesion. Punctate hypodensity upper pole left kidney too small to characterize. Postch olecystectomy clips noted. L1-L2: Normal disc space height. No disc herniation protrusion or central stenosis. No facet joint arthropathy. No evidence for foraminal encroachment. L2-L3: Normal disc space height. No disc herniation protrusion or central stenosis. No facet joint arthropathy. No evidence for foraminal encroachment. L3-L4: Broad-based central disc bulging with mild effacement of thecal sac. Findings slightly greater laterally to the left. Left-sided foraminal encroachment noted. L4-L5: Broad-based disc protrusion or herniation with hypertrophic change of the facets and ligamentu m flavum result in bilateral foraminal encroachment and canal stenosis. L5-S1: Central disc bulging. No Canal stenosis. Neural foramina remain patent. There is a curvature the spine with multilevel hypertrophic changes. There are no destructive changes seen. IMPRESSION: 1. Disc protrusion with hypertrophic changes L4-L5 results in canal stenosis and bilateral foraminal encroachment. MRI recommended. 2. Broad-based central disc bulging with effacement of thecal sac L3-L4. Findings greater laterally t o left with left-sided foraminal encroachment. 3. Central disc bulging L5-S1. 4. No acute fracture. 5. Hyperdense lesions involving the right kidney has discussed above recommend ultrasound for further evaluation.
[2019-03-08 14:00] VITALS: RESP 18; TEMP 98.6
[2019-03-08 14:21] LABS: Appearance,Urine Clear (Clear); Bacteria,Urine Rare /hpf; Bilirubin,Urine Negative (Negative); Blood,Urine Small (Negative); Color,Urine Light Yellow; Glucose,Urine (UA) Negative (Negative); Hyaline Casts,Urine 3 /lpf (0-2); Ketones,Urine Negative (Negative); Leukocyte Esterase,Urine Negative (Negative); Mucus,Urine Rare /hpf; Nitrite,Urine Negative (Negative); Protein,Urine Negative (Negative); RBC,Urine 1 /hpf (0-5); Specific Gravity,Urine 1.006 (1.001-1.035); Squamous Epithelial Cell,Urine <1 /hpf (0-4); Urobilinogen,Urine <2.0 mg/dL (<2.0); WBC,Urine 1 /hpf (0-5)
--- NOTE | 2019-03-08 14:36 | ED ---
Fall HPI - General Chief Complaint: Fall Stated Complaint: hip and back pain, Hx Ca patient Time Seen by Provider: 03/08/19 10:51 Source: patient Mode of arrival: ambulatory - History of Present Illness Initial Comments: 63-year-old female with history of smoldering multiple myeloma presenting today for chief complaint of back pain, she states she has had low back pain chronical ly however has not had an quite a few months. Patient states she was recently diagnosed with multiple myeloma and started on chemotherapy which one of the side effects she saw was back pain. She states that today she had increasing low back pain that caused her to fall on her bottom. Patient states her muscle relaxant is not alleviating her symptoms. Patient denies fever, chills, flu like symptoms she denies urinary retention loss of bowel bladder control loss sensation of the lower extremities. Patient denies dysuria urgency frequency or hematuria. Remaining review of systems negative upon arrival patient appears well and rheumatoid no signs of acute distress. Afebrile. - Related Data Home Medications Medication Instructions Recorded Confirmed LORazepam [Ativan] 1 mg PO HS 09/18/16 03/08/19 Ergocalciferol (Vitamin D2) 1 cap PO MO 01/19/18 03/08/19 [Vitamin D2] Sertraline [Zoloft] 100 mg PO BID 01/19/18 03/08/19 HYDROcodone/APAP 5-325MG [[place] 1 tab PO HS PRN 03/17/18 03/08/19 5-325] Methocarbamol [Robaxin] 750 mg PO DAILY 03/17/18 03/08/19 Acyclovir 400 mg PO BID 03/08/19 03/08/19 Aspirin 81 mg PO DAILY 03/08/19 03/08/19 Dexamethasone [Decadron] 20 mg PO FOREMAN 03/08/19 03/08/19 Gabapentin [Neurontin] 100 mg PO TID 03/08/19 03/08/19 Lenalidomide [Revlimid] 25 mg PO DIRECTED 03/08/19 03/08/19 NIFEdipine [Procardia] 10 mg PO TID 03/08/19 03/08/19 Pantoprazole Sodium [Protonix] 40 mg PO BID 03/08/19 03/08/19 Prochlorperazine [Compazine] 10 mg PO Q6H PRN 03/08/19 03/08/19 Sulfamethoxazole/Trimethoprim 1 tab PO MOWEFR 03/08/19 03/08/19 [Bactrim DS 800-160 mg] Allergies Allergy/AdvReac Type Severity Reaction Status Date / Time oseltamivir phosphate Allergy Mild Rash/Hives Verified 03/08/19 11:39 [From Tamiflu] vancomycin Allergy SOB AND Verified 03/08/19 11:39 HIVES Review of Systems ROS Statement: Those systems with pertinent positive or pertinent negative responses have been documented in the HPI. ROS Other: All systems not noted in ROS Statement are negative. Past Medical History Past Medical History: Cancer Additional Past Medical History / Comment(s): LARGE FIBROID TUMORS, Liver aneurysm History of Any Multi-Drug Resistant Organisms: None Reported Past Surgical History: Cholecystectomy, Hysterectomy Additional Past Surgical History / Comment(s): HAMMER TOE SURGERY Additional Past Anesthesia/Blood Transfusion Reaction / Comment(s): SEVERELY CLAUSTROPHIC Past Psychological History: Anxiety, Depression Smoking Status: Never smoker Past Alcohol Use History: None Reported Past Drug Use History: None Reported - Past Family History Mother Family Medical History: No Reported History Father Family Medical History: No Reported History General Exam - General Exam Comments Initial Comments: General: The patient is awake and alert, in no distress, and does not appear acutely ill. Eye: +3 mm pupils are equal, round and reactive to light, extra-ocular movements are intact. No nystagmus. There is normal conjunctiva bilaterally. No signs of icterus. Ears, nose, mouth and throat: There are moist mucous membranes and no oral lesions. Neck: The neck is supple, there is no tenderness or JVD. Cardiovascular: There is a regular rate and rhythm. No murmur, rub or gallop is appreciated. Respiratory: Lungs are clear to auscultation, respirations are non-labored, breath sounds are equal. No wheezes, stridor, rales, or rhonchi. Gastrointestinal: Soft, non-distended, non-tender abdomen without masses or organomegaly noted. There is no rebound or guarding present. No CVA tenderness. Bowel sounds are unremarkable. Musculoskeletal: Upon inspection of the lumbar spine no abdnormalities. Patient has midline tenderness to palpation of the lumbar spine. Normal ROM, no tenderness. Strength 5/5 of the LE b/l. Sensation intact of the LE b/l. DP pulses equal bilaterally 2+. Neurological: A&O x 3. CN II-XII intact, There are no obvious motor or sensory deficits. Coordination appears grossly intact. Speech is normal. Skin: Skin is warm and dry and no rashes or lesions are noted. Psychiatric: Cooperative, appropriate mood & affect, normal judgment. Limitations: no limitations Course Vital Signs 03/08/19 03/08/19 03/08/19 10:43 13:59 14:51 Temperature 97.3 F L 98.6 F 98.6 F Pulse Rate 89 63 67 Respiratory 20 18 18 Rate Blood Pressure 143/72 153/82 148/78 O2 Sat by Pulse 98 98 98 Oximetry Medical Decision Making - Medical Decision Making Afebrile female with recent diagnosis of smoldering multiple myeloma presenting for back pain. Patient states this is a side effect of her chemotherapy. Patient has no safety hematuria only 3 red blood cells in urine. HgB at baseline. No evidence of infection. Patient denies dysuria urgency frequency. Abdominal exam benign. Patient is midline tenderness to patient the lumbar spine. She called her oncologist who recommended CT of the lumbar spine. CT of the lumbar spine revealed no acute osseous abnormalities. There was evidence of bulging disc. With foraminal disc stenosis most likely causing the radiation of the pain down the right leg and hip. Patient is no signs of cauda equina. No weakness on examination. Full sensation. Patient has increasing creatinine from baseline. Unsure if this is related to patient's chemotherapy regimen. I did recommend patient follow-up with Dr. Chi in a primary care provider within the next week. Return parameters were discussed at length. Patient is provided a starter pack for Tylenol No. 3 for pain management. Otherwise at this time we feel patient is still for discharge with increase of oral hydration. Patient states she does not usually drink water. Case was discussed in detail Dr. Handy prior to patient's discharge. - Lab Data Result diagrams: 03/08/19 11:40 03/08/19 11:40 Lab Results 03/08/19 03/08/19 03/08/19 Range/Units 11:40 11:40 13:56 WBC 5.7 (3.8-10.6) k/uL RBC 3.17 L (3.80-5.40) m/uL Hgb 9.4 L (11.4-16.0) gm/dL Hct 28.8 L (34.0-46.0) % MCV 90.6 (80.0-100.0) fL MCH 29.6 (25.0-35.0) pg MCHC 32.7 (31.0-37.0) g/dL RDW 13.0 (11.5-15.5) % Plt Count 205 (150-450) k/uL Neutrophils % 60 % Lymphocytes % 23 % Monocytes % 11 % Eosinophils % 5 % Basophils % 0 % Neutrophils # 3.4 (1.3-7.7) k/uL Lymphocytes # 1.3 (1.0-4.8) k/uL Monocytes # 0.6 (0-1.0) k/uL Eosinophils # 0.3 (0-0.7) k/uL Basophils # 0.0 (0-0.2) k/uL Sodium 141 (137-145) mmol/L Potassium 3.7 (3.5-5.1) mmol/L Chloride 105 (98-107) mmol/L Carbon Dioxide 24 (22-30) mmol/L Anion Gap 12 mmol/L BUN 29 H (7-17) mg/dL Creatinine 1.48 H (0.52-1.04) mg/dL Est GFR (CKD-EPI)AfAm 43 (>60 ml/min/1.73 sqM) Est GFR (CKD-EPI)NonAf 37 (>60 ml/min/1.73 sqM) Glucose 84 (74-99) mg/dL Calcium 9.2 (8.4-10.2) mg/dL Total Bilirubin 0.5 (0.2-1.3) mg/dL AST 43 H (14-36) U/L ALT 35 (9-52) U/L Alkaline Phosphatase 82 (38-126) U/L Total Protein 8.0 (6.3-8.2) g/dL Albumin 4.2 (3.5-5.0) g/dL Urine Color Light Yellow Urine Appearance Clear (Clear) Urine pH 5.0 (5.0-8.0) Ur Specific [place] 1.006 (1.001-1.035) Urine Protein Negative (Negative) Urine Glucose (UA) Negative (Negative) Urine Ketones Negative (Negative) Urine Blood Small H (Negative) Urine Nitrite Negative (Negative) Urine Bilirubin Negative (Negative) Urine Urobilinogen <2.0 (<2.0) mg/dL Ur Leukocyte Esterase Negative (Negative) Urine RBC 1 (0-5) /hpf Urine WBC 1 (0-5) /hpf Ur Squamous Epith Cells <1 (0-4) /hpf Urine Bacteria Rare H (None) /hpf Hyaline Casts 3 H (0-2) /lpf Urine Mucus Rare H (None) /hpf Disposition Clinical Impression: Low back pain, History of multiple myeloma, Blood creatinine increased compared with prior measurement Disposition: HOME SELF-CARE Condition: Good Instructions (If sedation given, give patient instructions): Acute Low Back Pain (ED) Additional Instructions: Please use medication as discussed. Please follow-up with family doctor in the next 2 days for repeat labs, please increase fluid intake (water), return if not producing or decreased production of urine. Please return to emergency room if the symptoms increase or worsen or for any other concerns. Is patient prescribed a controlled substance at d/c from ED?: No Referrals: Domenico Cruz MD [Primary Care Provider] - 1-2 days Fang Chi MD [STAFF PHYSICIAN] - 1-2 days Time of Disposition: 14:36
[2019-03-08] MEDS ORDERED: ACET/COD 300 MG/30 MG STARTER PACK 6 TAB BTL PO STA (14:45)
[2019-03-08 14:52] VITALS: BP 148/78; PULSE 67
== END 2019-03-08 14:51 | disposition home or self-care (01) ==
LOC: EC 10:38
DX: M54.5 Low back pain (principal); R79.89 Other specified abnormal findings of blood chemistry; M48.061 Spinal stenosis, lumbar region without neurogenic claudication; Z85.79 Personal history of other malignant neoplasms of lymphoid, hematopoietic and related tissues; F41.9 Anxiety disorder, unspecified; F32.9 Major depressive disorder, single episode, unspecified; Z79.899 Other long term (current) drug therapy; Z79.82 Long term (current) use of aspirin; Z88.1 Allergy status to other antibiotic agents; Z88.8 Allergy status to other drugs, medicaments and biological substances
CPT/HCPCS: 36415; 80053; 85025; 81001; 72131; 99284; 96374; 96375; 96361; J2270; J2405

== ENCOUNTER → 2019-03-15 | Outpatient (CLI) | payer OTHER ==
--- NOTE | 2019-03-15 12:03 | US ---
EXAMINATION TYPE: US venous doppler duplex LE DATE OF EXAM: 03/15/2019 11:45 AM COMPARISON: NONE CLINICAL HISTORY: R22.42 R22.41 Swelling celestino limbs. SIDE PERFORMED: Bilateral TECHNIQUE: The lower extremity deep venous system is examined utilizing real time linear array sonog arcadio with graded compression, doppler sonography and color-flow sonography. VESSELS IMAGED: External Iliac Vein (EIV) Common Femoral Vein Deep Femoral Vein Greater Saphenous Vein * Femoral Vein Popliteal Vein Small Saphenous Vein * Proximal Calf Veins (* superficial vessels) Grayscale, color doppler, spectral doppler imaging performed of the deep veins of the lower extremiti es. There is normal flow, compressibility, vascular waveforms. Right Leg: Negative for DVT Left Leg: Negative for DVT IMPRESSION: No sonographic evidence of deep venous thrombosis within either bilateral lower extremit y.
--- NOTE | 2019-03-15 12:41 | CT ---
EXAMINATION TYPE: CT angio chest DATE OF EXAM: 03/15/2019 COMPARISON: NONE HISTORY: Shortness of breath and leg pain CT DLP: 390.2 mGycm. Automated Exposure Control for Dose Reduction was Utilized. CONTRAST: CTA scan of the thorax is performed with IV Contrast, patient injected with 65 mL of Isovue 370, pulm onary embolism protocol. MIP Images are created on CT scanner and reviewed. FINDINGS: LUNGS: The lungs are grossly clear, there is no concerning parenchymal mass or nodule identified. T here is no pleural effusion or pneumothorax seen. The tracheobronchial tree is patent. MEDIASTINUM: There is a filling defect in a segmental pulmonary artery to the anterior left lower lob e and tiny defect in subsegmental pulmonary arteries to the right upper lobe. These represent acute o ccluding pulmonary emboli. There is no bowing of the interventricular septum. The left ventricular to right ventricular ratio is within normal limits. Minimal reflux of contrast into the inferior vena c amy and hepatic veins is seen. There are no greater than 1 cm hilar or mediastinal lymph nodes. Hear t is enlarged without pericardial effusion. Mild coronary artery calcifications are evident. Trace st rand-like density in the anterior superior mediastinum most likely represents residual thymic tissue. Fluid is seen within the pericardial recess. No thoracic adenopathy is evident. OTHER: Gallbladder is surgically absent. Small hiatal hernia is present. Minimal multilevel degenerat santosh change of the thoracic spine. IMPRESSION: Small acute pulmonary emboli, segmental to the anterior left lower lobe and subsegmental to the right upper lobe with no convincing evidence of right heart strain. An underlying component of right heart failure is possible given the enlarged cardiac mediastinal silhouette and reflux of contrast into th e inferior vena cava. Echocardiogram could assess function. Report called to Melanie at Dr Woodruff's offic e by Linda Stark at 11:53 AM on 03/15/2019. Dr Woodruff requested patient return to office.
== END | disposition home or self-care (01) ==
LOC: RADCTMAIN 10:23
PROVIDERS: ATTEND Internal Medicine Hematology & Oncology
DX: I26.99 Other pulmonary embolism without acute cor pulmonale (principal); R06.00 Dyspnea, unspecified; R06.02 Shortness of breath; R22.42 Localized swelling, mass and lump, left lower limb; R22.41 Localized swelling, mass and lump, right lower limb; Z88.1 Allergy status to other antibiotic agents; Z88.8 Allergy status to other drugs, medicaments and biological substances
CPT/HCPCS: 82565; 84520; 93970; 71275; Q9967

== ENCOUNTER → 2019-03-18 | Outpatient (CLI) | payer OTHER | END | disposition home or self-care (01) | LOC: RADMRIMAIN 17:51 | PROVIDERS: ATTEND Internal Medicine Hematology & Oncology | DX: Z53.9 Procedure and treatment not carried out, unspecified reason (principal) ==

== ENCOUNTER → 2019-04-01 | Outpatient (CLI) | payer OTHER ==
--- NOTE | 2019-04-01 16:11 | MR ---
EXAMINATION TYPE: MR tspine/lspine wo/w con DATE OF EXAM: 04/01/2019 COMPARISON: CTA chest March 15, 2019. CT lumbar spine March 08, 2019. HISTORY: Multiple myeloma. TECHNIQUE: Multiplanar, multisequence imaging of thoracic spine is performed without contrast FINDINGS: Spinal cord shows normal course, caliber, and signal as it courses the thoracic spine. Vicki tebral body heights and alignment are satisfactory. Disc space heights are fairly well-preserved. Pos terior disc herniation T8-T9 level effaces the anterior thecal sac. Few scattered small hemangiomas a re present including T9 lesion sagittal image 8. No definitive suspicious enhancing osseous lesions. No abnormal enhancement is noted. Review of the axial images shows possible artifact right posterior soft tissue or probable subcutane ous lesion axial image 16. There are additional eccentric posterior disc herniations effacing the ant erior thecal sac at T5-T6 and T6-T7 level. No suspicious incidental finding the visualized thorax or upper abdomen. IMPRESSION: Multilevel degenerative changes mid to lower thoracic spine. No suspicious osseous lesion s are enhancement noted. L-SPINE: FINDINGS: Sagittal images of the lumbar spine show vertebral body heights and alignment to appear sat isfactory. Multilevel disc desiccation is seen with mild multilevel disc space narrowing. And prop sawyer ior disc herniations L3-L4 through L5-S1 level on sagittal images. The conus medullaris is normal in position and signal in the inferior T12 level. The bone marrow signal intensity is overall heterogen eous without suspicious enhancing lesion or enhancement. Axial images show the T12-L1 and L1-L2 levels appear within normal limits. Axial images at L2-L3 level mild broad disc bulge with spinal canal preserved. Axial images at L3-L4 level small moderate broad based posterior disc protrusion mildly effacing ante rior thecal sac with mild facet arthropathy bilaterally. Axial images at the L4-L5 level mild facet degenerative changes bilaterally. There is mild to moderat e broad disc bulge effacing the anterior thecal sac with mild right greater than left bilateral anter ior inferior neural foraminal narrowing. Axial images at the L5-S1 level moderate facet degenerative changes bilaterally. There is central dis c protrusion but spinal canal is preserved. Bilateral neural foramina are patent. There is 1.1 cm nonenhancing T2 hyperintense lesion anteriorly right kidney axial image 18 presumed b enign. IMPRESSION: Multilevel degenerative changes mid to lower lumbar spine as detailed above. No suspicio us focal osseous lesion.
== END | disposition home or self-care (01) ==
LOC: RADMRIMAIN 14:14
PROVIDERS: ATTEND Internal Medicine Hematology & Oncology
DX: M47.814 Spondylosis without myelopathy or radiculopathy, thoracic region (principal); M47.816 Spondylosis without myelopathy or radiculopathy, lumbar region; M47.817 Spondylosis without myelopathy or radiculopathy, lumbosacral region; C90.00 Multiple myeloma not having achieved remission
CPT/HCPCS: 72157; 72158; A9585

== ENCOUNTER → 2019-04-19 | Outpatient (CLI) | payer OTHER ==
--- NOTE | 2019-04-19 15:31 | US ---
EXAMINATION TYPE: US kidneys/renal and bladder DATE OF EXAM: 04/19/2019 COMPARISON: MR 04/01/19 CLINICAL HISTORY: N28.9 Kidney lesion. Renal lesions per patient EXAM MEASUREMENTS: Right Kidney: 11.0 x 4.4 x 4.0 cm Left Kidney: 10.5 x 5.1 x 5.4 cm Right Kidney: No hydronephrosis. Unable to visualize sonographically prior MR renal lesion Left Kidney: No hydronephrosis or masses seen Bladder: wnl, distended Bilateral Jets seen There is no evidence for hydronephrosis at this point in time. No nephrolithiasis is seen. No fabrice s are identified. The urinary bladder is anechoic. Bilateral ureteral jets are seen. IMPRESSION: The previously seen renal lesion on MR does appear as a true renal lesion on MRI however is not seen on ultrasound. Three-phase enhanced CT is recommended for further characterization.
== END | disposition home or self-care (01) ==
LOC: RADUSWWP 14:10
PROVIDERS: ATTEND Family Medicine
DX: N28.9 Disorder of kidney and ureter, unspecified (principal)
CPT/HCPCS: 76770

== ENCOUNTER → 2019-05-10 | Outpatient (CLI) | payer OTHER ==
[2019-05-10 19:30] LABS: African American GFR (CKD) 89.7 (60.0-200.0); Albumin 3.7 g/dL (3.80-4.90); Albumin/Globulin Ratio 1.76 (1.60-3.17); Anion Gap 7.9 mmol/L (4.00-12.00); BUN/Creat Ratio 12.5 Ratio (12.00-20.00); Calcium 8.8 mg/dL (8.7-10.3); Carbon Dioxide 28.1 mmol/L (21.6-31.8); Globulin 2.1 g/dL (1.6-3.3); Potassium 3.7 mmol/L (3.5-5.5); Protein, Total 5.8 g/dL (6.2-8.2); Total Bilirubin 0.5 mg/dL (0.2-1.2); Total Protein 5.8 g/dL (6.2-8.2)
[2019-05-11 09:02] LABS: Free Kappa Lt Chain Qnt, Serum 0.73 mg/dL (0.33-1.94)
[2019-05-11 10:57] LABS: Albumin 3.22 g/dL (3.80-4.90); Gamma Globulin 1.08 g/dL (0.70-1.50)
== END | disposition home or self-care (01) ==
LOC: LABWHC1 13:07
PROVIDERS: ATTEND Internal Medicine Hematology & Oncology
DX: J43.9 Emphysema, unspecified (principal); D47.2 Monoclonal gammopathy; C90.00 Multiple myeloma not having achieved remission; R07.9 Chest pain, unspecified
CPT/HCPCS: 36415; 80053; 83883; 84165; 85652

== ENCOUNTER 2019-08-04 14:32 | Emergency (ER) | payer OTHER ==
[2019-08-04 14:37] VITALS: RESP 20; TEMP 97.5
[2019-08-04] MEDS ORDERED: MORPHINE SULFATE 4 MG/ML SYRINGE IV STA (14:51)
[2019-08-04] MEDS ORDERED: SODIUM CHLORIDE 0.9% 1,000 ML IV STA (14:51)
[2019-08-04] MEDS ORDERED: ONDANSETRON 4 MG/2 ML VIAL IVP STA (14:51)
--- NOTE | 2019-08-04 14:55 | ED ---
Abdominal Pain HPI - General Chief Complaint: Abdominal Pain Stated Complaint: abdominal pain Time Seen by Provider: 08/04/19 14:38 Source: patient Mode of arrival: ambulatory Limitations: no limitations - History of Present Illness Initial Comments: Patient is a 63-year-old female presenting to emergency Department with complaints of lower left quadrant pain has been increasing over the past week. Patient is currently being treated for multiple melanoma with chemo. Patient states the pain started as dull in the lower left quadrant and she thought it was related to constipation secondary to her chemo. Patient states the pain has been increasing over the past week and she has been having bowel movements however the pain is not improving. Patient has also been nauseous, no vomiting. Today patient has been having diarrhea. Patient denies fever, chills, chest pain. Patient is to see her oncologist yesterday who thought the pain is related to her constipation. 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 Patient states the bumps on the way to the ER were also very painful. Patient has no other complaints at this time. Upon arrival to the ER, patient's BP is elevated at 190/80, rest of vitals normal. - Related Data Home Medications Medication Instructions Recorded Confirmed LORazepam [Ativan] 1 mg PO HS 09/18/16 03/08/19 Ergocalciferol (Vitamin D2) 1 cap PO MO 01/19/18 03/08/19 [Vitamin D2] Sertraline [Zoloft] 100 mg PO BID 01/19/18 03/08/19 HYDROcodone/APAP 5-325MG [[place] 1 tab PO HS PRN 03/17/18 03/08/19 5-325] Methocarbamol [Robaxin] 750 mg PO DAILY 03/17/18 03/08/19 Acyclovir 400 mg PO BID 03/08/19 03/08/19 Aspirin 81 mg PO DAILY 03/08/19 03/08/19 Dexamethasone [Decadron] 20 mg PO FOREMAN 03/08/19 03/08/19 Gabapentin [Neurontin] 100 mg PO TID 03/08/19 03/08/19 Lenalidomide [Revlimid] 25 mg PO DIRECTED 03/08/19 03/08/19 NIFEdipine [Procardia] 10 mg PO TID 03/08/19 03/08/19 Pantoprazole Sodium [Protonix] 40 mg PO BID 03/08/19 03/08/19 Prochlorperazine [Compazine] 10 mg PO Q6H PRN 03/08/19 03/08/19 Sulfamethoxazole/Trimethoprim 1 tab PO MOWEFR 03/08/19 03/08/19 [Bactrim DS 800-160 mg] Previous Rx's Medication Instructions Recorded Amoxicillin/Potassium Clav 1 tab PO BID 7 Days #14 tab 08/04/19 [Augmentin 875-125 Tablet] Allergies Allergy/AdvReac Type Severity Reaction Status Date / Time oseltamivir phosphate Allergy Mild Rash/Hives Verified 08/04/19 14:37 [From Tamiflu] vancomycin Allergy SOB AND Verified 08/04/19 14:37 HIVES Review of Systems ROS Statement: Those systems with pertinent positive or pertinent negative responses have been documented in the HPI. ROS Other: All systems not noted in ROS Statement are negative. Past Medical History Past Medical History: Cancer Additional Past Medical History / Comment(s): LARGE FIBROID TUMORS, Liver aneurysm History of Any Multi-Drug Resistant Organisms: None Reported Past Surgical History: Cholecystectomy, Hysterectomy Additional Past Surgical History / Comment(s): HAMMER TOE SURGERY Additional Past Anesthesia/Blood Transfusion Reaction / Comment(s): SEVERELY CLAUSTROPHIC Past Psychological History: Anxiety, Depression Smoking Status: Never smoker Past Alcohol Use History: None Reported Past Drug Use History: None Reported - Past Family History Mother Family Medical History: No Reported History Father Family Medical History: No Reported History General Exam - General Exam Comments Initial Comments: GENERAL: Well-appearing, well-nourished and in no acute distress. HEAD: Atraumatic, normocephalic. EYES: Pupils equal round and reactive to light, extraocular movements intact, sclera anicteric, conjunctiva are normal. ENT: TMs normal, nares patent, oropharynx clear without exudates. Moist mucous membranes. NECK: Normal range of motion, supple without lymphadenopathy or JVD. LUNGS: Breath sounds clear to auscultation bilaterally and equal. No wheezes rales or rhonchi. HEART: Regular rate and rhythm without murmurs, rubs or gallops. ABDOMEN: Tender to palpation of left lower quadrant. Positive guarding Soft, , normoactive bowel sounds. No rebound. No masses appreciated. : Deferred EXTREMITIES: Normal range of motion, no pitting or edema. No clubbing or cyanosis. NEUROLOGICAL: Normal speech, normal gait. PSYCH: Normal mood, normal affect. SKIN: Warm, Dry, normal turgor, no rashes or lesions noted. Limitations: no limitations Course Vital Signs 08/04/19 08/04/19 08/04/19 14:34 14:36 15:36 Temperature 97.5 F L Pulse Rate 86 Respiratory 20 20 20 Rate Blood Pressure 190/80 O2 Sat by Pulse 99 99 99 Oximetry 08/04/19 08/04/19 16:19 17:12 Temperature Pulse Rate 73 66 Respiratory 20 20 Rate Blood Pressure 147/71 136/68 O2 Sat by Pulse 98 99 Oximetry Medical Decision Making - Medical Decision Making Patient is a 63-year-old female presenting with left lower quadrant pain x 1 week, along with nausea and diarrhea. Patient is currently being treated for multiple melanoma with chemo. Patient was slightly hypertensive upon arrival, rest of vitals were normal. Lab work shows no acute abnormalities. Lactic acid is 1.1. Urine shows no signs of infection. CT the abdomen shows diverticulitis/colitis. No other acute abnormalities. I discussed findings with patient and we will start patient on Augmentin. Patient was given fluids as well as Toradol and Zofran and reports improvement in her symptoms. Patient is stable for discharge at this time and she is in agreement with this plan of care. Patient will follow up with her oncologist or PCP. Strict return parameters were discussed with the patient she verbalized understanding. Case discussed with Dr. Kirkland. - Lab Data Result diagrams: 08/04/19 14:55 08/04/19 14:55 Lab Results 08/04/19 08/04/19 08/04/19 Range/Units 14:55 14:55 14:55 WBC 4.4 (3.8-10.6) k/uL RBC 3.53 L (3.80-5.40) m/uL Hgb 11.2 L (11.4-16.0) gm/dL Hct 34.2 (34.0-46.0) % MCV 96.7 (80.0-100.0) fL MCH 31.7 (25.0-35.0) pg MCHC 32.8 (31.0-37.0) g/dL RDW 14.3 (11.5-15.5) % Plt Count 188 (150-450) k/uL Neutrophils % 54 % Lymphocytes % 30 % Monocytes % 8 % Eosinophils % 5 % Basophils % 1 % Neutrophils # 2.4 (1.3-7.7) k/uL Lymphocytes # 1.3 (1.0-4.8) k/uL Monocytes # 0.4 (0-1.0) k/uL Eosinophils # 0.2 (0-0.7) k/uL Basophils # 0.0 (0-0.2) k/uL PT (9.0-12.0) sec INR (<1.2) APTT (22.0-30.0) sec Sodium 139 (137-145) mmol/L Potassium 3.5 (3.5-5.1) mmol/L Chloride 105 (98-107) mmol/L Carbon Dioxide 27 (22-30) mmol/L Anion Gap 7 mmol/L BUN 10 (7-17) mg/dL Creatinine 0.88 (0.52-1.04) mg/dL Est GFR (CKD-EPI)AfAm 80 (>60 ml/min/1.73 sqM) Est GFR (CKD-EPI)NonAf 70 (>60 ml/min/1.73 sqM) Glucose 94 (74-99) mg/dL Plasma Lactic Acid John 1.1 (0.7-2.0) mmol/L Calcium 8.8 (8.4-10.2) mg/dL Total Bilirubin 1.2 (0.2-1.3) mg/dL AST 15 (14-36) U/L ALT 14 (4-34) U/L Alkaline Phosphatase 104 (38-126) U/L Total Protein 6.9 (6.3-8.2) g/dL Albumin 3.9 (3.5-5.0) g/dL Amylase 49 (30-110) U/L Lipase 88 (23-300) U/L Urine Color Urine Appearance (Clear) Urine pH (5.0-8.0) Ur Specific [place] (1.001-1.035) Urine Protein (Negative) Urine Glucose (UA) (Negative) Urine Ketones (Negative) Urine Blood (Negative) Urine Nitrite (Negative) Urine Bilirubin (Negative) Urine Urobilinogen (<2.0) mg/dL Ur Leukocyte Esterase (Negative) Urine RBC (0-5) /hpf Urine WBC (0-5) /hpf Ur Squamous Epith Cells (0-4) /hpf Urine Bacteria (None) /hpf Hyaline Casts (0-2) /lpf Urine Mucus (None) /hpf 08/04/19 08/04/19 Range/Units 14:55 15:55 WBC (3.8-10.6) k/uL RBC (3.80-5.40) m/uL Hgb (11.4-16.0) gm/dL Hct (34.0-46.0) % MCV (80.0-100.0) fL MCH (25.0-35.0) pg MCHC (31.0-37.0) g/dL RDW (11.5-15.5) % Plt Count (150-450) k/uL Neutrophils % % Lymphocytes % % Monocytes % % Eosinophils % % Basophils % % Neutrophils # (1.3-7.7) k/uL Lymphocytes # (1.0-4.8) k/uL Monocytes # (0-1.0) k/uL Eosinophils # (0-0.7) k/uL Basophils # (0-0.2) k/uL PT 11.5 (9.0-12.0) sec INR 1.1 (<1.2) APTT 29.1 (22.0-30.0) sec Sodium (137-145) mmol/L Potassium (3.5-5.1) mmol/L Chloride (98-107) mmol/L Carbon Dioxide (22-30) mmol/L Anion Gap mmol/L BUN (7-17) mg/dL Creatinine (0.52-1.04) mg/dL Est GFR (CKD-EPI)AfAm (>60 ml/min/1.73 sqM) Est GFR (CKD-EPI)NonAf (>60 ml/min/1.73 sqM) Glucose (74-99) mg/dL Plasma Lactic Acid John (0.7-2.0) mmol/L Calcium (8.4-10.2) mg/dL Total Bilirubin (0.2-1.3) mg/dL AST (14-36) U/L ALT (4-34) U/L Alkaline Phosphatase (38-126) U/L Total Protein (6.3-8.2) g/dL Albumin (3.5-5.0) g/dL Amylase (30-110) U/L Lipase (23-300) U/L Urine Color Yellow Urine Appearance Cloudy H (Clear) Urine pH 5.5 (5.0-8.0) Ur Specific [place] 1.022 (1.001-1.035) Urine Protein Trace H (Negative) Urine Glucose (UA) Negative (Negative) Urine Ketones Negative (Negative) Urine Blood Moderate H (Negative) Urine Nitrite Negative (Negative) Urine Bilirubin Negative (Negative) Urine Urobilinogen <2.0 (<2.0) mg/dL Ur Leukocyte Esterase Moderate H (Negative) Urine RBC 14 H (0-5) /hpf Urine WBC 3 (0-5) /hpf Ur Squamous Epith Cells 7 H (0-4) /hpf Urine Bacteria Rare H (None) /hpf Hyaline Casts 1 (0-2) /lpf Urine Mucus Few H (None) /hpf Disposition Clinical Impression: Diverticulitis Disposition: HOME SELF-CARE Condition: Stable Additional Instructions: Please return to the Emergency Department if symptoms worsen or any other concerns. Take antibiotics as prescribed. Follow-up with PCP or oncologist to ensure resolution. Prescriptions: Amoxicillin/Potassium Clav [Augmentin 875-125 Tablet] 1 tab PO BID 7 Days #14 tab Is patient prescribed a controlled substance at d/c from ED?: No Referrals: Domenico Cruz MD [Primary Care Provider] - 1-2 days
[2019-08-04 15:16] LABS: Basophils % (A) 1 %; Eosinophils # (A) 0.2 k/uL (0-0.7); Eosinophils % (A) 5 %; HCT 34.2 % (34.0-46.0); HGB 11.2 gm/dL (11.4-16.0); Lymphocytes # (A) 1.3 k/uL (1.0-4.8); Lymphocytes % (A) 30 %; MCH 31.7 pg (25.0-35.0); MCHC 32.8 g/dL (31.0-37.0); MCV 96.7 fL (80.0-100.0); Mean Platelet Volume 8.8; Monocytes # (A) 0.4 k/uL (0-1.0); Monocytes % (A) 8 %; Neutrophils # (A) 2.4 k/uL (1.3-7.7); Neutrophils % (A) 54 %; Platelet Count 188 k/uL (150-450); RBC 3.53 m/uL (3.80-5.40); RDW 14.3 % (11.5-15.5); WBC 4.4 k/uL (3.8-10.6)
[2019-08-04 15:28] LABS: INR 1.1 (<1.2); Partial Thromboplastin Time 29.1 sec (22.0-30.0); Prothrombin Time 11.5 sec (9.0-12.0)
[2019-08-04 15:49] LABS: Albumin 3.9 g/dL (3.5-5.0); Calcium 8.8 mg/dL (8.4-10.2); Potassium 3.5 mmol/L (3.5-5.1); Total Bilirubin 1.2 mg/dL (0.2-1.3); Total Protein 6.9 g/dL (6.3-8.2)
[2019-08-04 16:29] LABS: Appearance,Urine Cloudy (Clear); Bacteria,Urine Rare /hpf; Bilirubin,Urine Negative (Negative); Blood,Urine Moderate (Negative); Color,Urine Yellow; Glucose,Urine (UA) Negative (Negative); Hyaline Casts,Urine 1 /lpf (0-2); Ketones,Urine Negative (Negative); Leukocyte Esterase,Urine Moderate (Negative); Mucus,Urine Few /hpf; Nitrite,Urine Negative (Negative); PH, Urine 5.5 (5.0-8.0); Protein,Urine Trace (Negative); RBC,Urine 14 /hpf (0-5); Specific Gravity,Urine 1.022 (1.001-1.035); Squamous Epithelial Cell,Urine 7 /hpf (0-4); Urobilinogen,Urine <2.0 mg/dL (<2.0); WBC,Urine 3 /hpf (0-5)
--- NOTE | 2019-08-04 16:33 | CT ---
EXAMINATION TYPE: CT abdomen pelvis w con DATE OF EXAM: 08/04/2019 COMPARISON: Prior CT 03/17/2018 HISTORY: LLQ pain, nausea, constipation, diarrhea CT DLP: 1109.8 mGycm Automated exposure control for dose reduction was used. TECHNIQUE: Helical acquisition of images from the lung bases through the pelvis have been completed. CONTRAST: Performed without Oral Contrast and with IV Contrast, patient injected with 100 mL of Isovue 300. FINDINGS: LUNG BASES: No significant abnormality is appreciated. AORTA: No significant abnormality is appreciated. LIVER/GB: Patient is post cholecystectomy. Liver shows low attenuation consistent with hepatic steato sis. PANCREAS: No significant abnormality is seen. SPLEEN: No significant abnormality is seen. ADRENALS: No significant abnormality is seen. KIDNEYS: No significant abnormality is seen. REPRODUCTIVE ORGANS: Uterus and adnexal structures are not seen. BOWEL: There is diverticular change in the sigmoid colon. Some inflammatory changes present with inc reased attenuation in the surrounding fat seen on coronal image #47, axial image #66. Small bowel loo ps show some areas of wall thickening. There are fluid-filled small bowel loops present. FREE AIR: No Free Air visible. ASCITES: None visible. PELVIC ADENOPATHY: None visualized. RETROPERITONEAL ADENOPATHY: No Retroperitoneal Adenopathy visible. URINARY BLADDER: No significant abnormality is seen. OSSEOUS STRUCTURES: There is a mild spinal curvature. Multilevel spondylosis present. Degenerative d isc changes are seen.. IMPRESSION: CORRELATE FOR DIVERTICULITIS, ENTERITIS.
[2019-08-04 17:13] VITALS: BP 136/68; PULSE 66
== END 2019-08-04 17:16 | disposition home or self-care (01) ==
LOC: EC 14:32
DX: K57.92 Diverticulitis of intestine, part unspecified, without perforation or abscess without bleeding (principal); C90.00 Multiple myeloma not having achieved remission; I10 Essential (primary) hypertension; F32.9 Major depressive disorder, single episode, unspecified; F41.9 Anxiety disorder, unspecified; Z88.1 Allergy status to other antibiotic agents; Z88.8 Allergy status to other drugs, medicaments and biological substances; Z79.52 Long term (current) use of systemic steroids; Z79.82 Long term (current) use of aspirin; Z79.899 Other long term (current) drug therapy; Z92.21 Personal history of antineoplastic chemotherapy; Z90.49 Acquired absence of other specified parts of digestive tract; Z90.710 Acquired absence of both cervix and uterus
CPT/HCPCS: 99284; 96374; 96375; 96361; 36415; 80053; 82150; 83605; 83690; 85025; 85610; 85730; 81001; 74177; J2270; J2405; Q9967

== ENCOUNTER → 2019-08-12 | Day surgery (SDC) | payer OTHER ==
[2019-08-09 13:34] VITALS: BMI 28.6
[~2019-08-12] MED LIST changes: -DEXAMETHASONE SOD PHOSPHATE 10 MG/ML 1 ML VIAL IV ONE; +LIDOCAINE 1% 20 ML VIAL (10MG/ML) FOR IV START INTRADERMA ONE; -LIDOCAINE 1% 20 ML VIAL (10MG/ML) FOR IV START INTRADERMA PRN; +LIDOCAINE 1% INJ 10MG/ML (20 ML MDV) ONE; -MIDAZOLAM 2 MG/2 ML VIAL IV PRN; -ONDANSETRON 4 MG/2 ML VIAL IVP ONE; +PROPOFOL 10 MG/ML 20 ML VIAL IV ONE; -SCOPOLAMINE 1.5MG/72HR PATCH TRANSDERM ONE; -ceFAZolin 2 GM in SODIUM CHLORIDE 0.9% 100 ML IVPB ONE
[2019-08-12 09:02] VITALS: TEMP 97.5
[2019-08-12] MEDS: LACTATED RINGERS 1,000 ML IV SCH ×2 (09:03→09:06)
--- NOTE | 2019-08-12 09:28 | P.PCN ---
Date of Procedure: 08/12/19 Procedure(s) Performed: BRIEF HISTORY: Patient is a 63-year-old pleasant white female scheduled for an elective colonoscopy as a part of screening for colorectal neoplasia. PROCEDURE PERFORMED: Colonoscopy. PREOPERATIVE DIAGNOSIS:Screening for colon cancer. IV sedation per Anesthesia. PROCEDURE: After informed consent was obtained, the patient, was brought into the endoscopy unit. IV sedation was administered by Anesthesia under continuous monitoring. Digital rectal examination was normal. Initially the Olympus CF-160 flexible video colonoscope was then inserted in the rectum, gradually advanced into the cecum without any difficulty. Careful examination was performed as the scope was gradually being withdrawn. Ileocecal valve and the appendiceal orifice were visualized and appeared normal. Prep was excellent. Mucosa of the cecum, ascending colon, transverse colon, descending colon, sigmoid colon, and rectum appeared normal. Retroflexion was performed in the rectum and no lesions were seen. The patient tolerated the procedure well. IMPRESSION: Normal-appearing colon from rectum to cecum with no evidence of colorectal neoplasia. RECOMMENDATIONS: Findings of this examination were discussed with the patient as well as a family. She was advised to have a repeat screening colonoscopy in 10 years
[2019-08-12 09:38] VITALS: RESP 16
[2019-08-12 09:59] VITALS: BP 125/83; PULSE 60
== END ==
LOC: ORWHC2ENDO 08:31
PROVIDERS: ATTEND Internal Medicine Gastroenterology
DX: Z12.11 Encounter for screening for malignant neoplasm of colon (principal); I10 Essential (primary) hypertension; E78.5 Hyperlipidemia, unspecified; I25.2 Old myocardial infarction; K21.9 Gastro-esophageal reflux disease without esophagitis; F40.240 Claustrophobia; Z79.01 Long term (current) use of anticoagulants; Z79.899 Other long term (current) drug therapy; Z88.1 Allergy status to other antibiotic agents; Z88.8 Allergy status to other drugs, medicaments and biological substances
CPT/HCPCS: J2001; J2704; G0121

== ENCOUNTER 2024-07-06 14:28 | Observation (INO) | payer MEDICARE, OTHER ==
[2024-07-06] MEDS: NITROGLYCERIN SL TABS 0.4 MG TAB SUBLINGUAL STA (15:37)
[2024-07-06 15:41] LABS: Basophils # (A) 0.1 k/uL (0-0.2); Basophils % (A) 1 %; Eosinophils # (A) 0.2 k/uL (0-0.7); Eosinophils % (A) 4 %; HCT 35.4 % (34.0-46.0); HGB 11.5 gm/dL (11.4-16.0); Lymphocytes # (A) 1.8 k/uL (1.0-4.8); Lymphocytes % (A) 28 %; MCH 30.8 pg (25.0-35.0); MCHC 32.6 g/dL (31.0-37.0); MCV 94.4 fL (80.0-100.0); Mean Platelet Volume 8.5; Monocytes # (A) 0.3 k/uL (0-1.0); Monocytes % (A) 5 %; Neutrophils # (A) 3.9 k/uL (1.3-7.7); Neutrophils % (A) 61 %; Platelet Count 219 k/uL (150-450); RBC 3.75 m/uL (3.80-5.40); RDW 12.2 % (11.5-15.5); WBC 6.5 k/uL (3.8-10.6)
--- NOTE | 2024-07-06 15:47 | ED ---
General Adult HPI - General Chief complaint: Chest Pain Stated complaint: Chest pain Time Seen by Provider: 07/06/24 14:39 Source: patient Mode of arrival: wheelchair Limitations: no limitations - History of Present Illness Initial comments: Dictation was produced using [employer] dictation software. please excuse any grammatical, word or spelling errors. Chief Complaint: 68-year-old female with past medical history of chronic kidney disease presents to the ER for hypertension chest pain History of Present Illness: Patient is a 68-year-old female. [facility]. She had vitals done there and is found to have hypertension. Patient says she has been having some chest pain. She reports history of coronary artery disease. Also says she is short of breath. Denies any fever, chills or night sweats. The ROS documented in this emergency department record has been reviewed and confirmed by me. Those systems with pertinent positive or negative responses have been documented in the HPI. All other systems are other negative and/or noncontributory. - Related Data Home Medications Medication Instructions Recorded Confirmed Pantoprazole Sodium [Protonix] 40 mg PO BID 03/08/19 07/06/24 Losartan [Cozaar] 50 mg PO BID 12/09/23 07/06/24 carvediloL 25 mg PO BID 12/09/23 07/06/24 Torsemide [Demadex] 20 mg PO DAILY 12/30/23 07/06/24 Cariprazine HCl [Vraylar] 3 mg PO HS 07/06/24 07/06/24 Ergocalciferol [Vitamin D2 (1250 1,250 mcg PO FR 07/06/24 07/06/24 Mcg = 05759 Iu)] HYDROcodone/APAP 7.5-325MG [[place] 1 tab PO TID PRN 07/06/24 07/06/24 7.5-325] diazePAM [Valium] 2 mg PO TID PRN 07/06/24 07/06/24 Allergies Allergy/AdvReac Type Severity Reaction Status Date / Time oseltamivir phosphate Allergy Mild Rash/Hives Verified 07/06/24 18:27 [From Tamiflu] gentamicin Allergy SOB AND Verified 07/06/24 18:27 HIVES/RED MAN'S vancomycin Allergy SOB AND Verified 07/06/24 18:27 HIVES/RED MAN'S Review of Systems ROS Statement: Those systems with pertinent positive or pertinent negative responses have been documented in the HPI. ROS Other: All systems not noted in ROS Statement are negative. Past Medical History Past Medical History: Cancer, GERD/Reflux, Hyperlipidemia, Hypertension, Myocardial Infarction ([place]), Pulmonary Embolus ([place]), Renal Disease Additional Past Medical History / Comment(s): Liver aneurysm, heart murmer, hiatal hernia, divertiulitis, anemia, mult myeloma, Last Myocardial Infarction Date:: 2017 History of Any Multi-Drug Resistant Organisms: None Reported Past Surgical History: Adenoidectomy, Cholecystectomy, Heart Catheterization, Hysterectomy, Orthopedic Surgery, Tonsillectomy, Tubal Ligation Additional Past Surgical History / Comment(s): HAMMER TOE SURGERY. liver coils placed for aneurysm, D&C Past Anesthesia/Blood Transfusion Reactions: Motion Sickness Additional Past Anesthesia/Blood Transfusion Reaction / Comment(s): SEVERELY claustrophobia Past Psychological History: Anxiety, Depression Smoking Status: Never smoker - Past Family History Mother Family Medical History: No Reported History Father Family Medical History: No Reported History General Exam - General Exam Comments Initial Comments: PHYSICAL EXAM: General Impression: Alert and oriented x3, not in acute distress HEENT: Normocephalic atraumatic, extra-ocular movements intact, pupils equal and reactive to light bilaterally, mucous membranes moist. Cardiovascular: Heart regular rate and rhythm Chest: Able to complete full sentences, no retractions, no tachypnea Abdomen: abdomen soft, non-tender, non-distended, no organomegaly Musculoskeletal: Pulses present and equal in all extremities, no peripheral edema Motor: no focal deficits noted Neurological: CN II-XII grossly intact, no focal motor or sensory deficits noted Skin: Intact with no visualized rashes Psych: Normal affect and mood Limitations: no limitations Course Vital Signs 07/06/24 07/06/24 07/06/24 14:30 15:29 16:10 Temperature 98.3 F Pulse Rate 78 80 80 Respiratory 18 20 16 Rate Blood Pressure 199/133 230/159 219/123 O2 Sat by Pulse 98 100 96 Oximetry 07/06/24 07/06/24 17:00 18:00 Temperature Pulse Rate 71 70 Respiratory 16 16 Rate Blood Pressure 197/105 157/95 O2 Sat by Pulse 95 95 Oximetry EKG Findings - EKG Comments: EKG Findings:: My EKG interpretation: Ventricular rate 76, sinus rhythm, UT interval 128, QRS 82, QTc 410. No UT prolongation, no QTC prolongation, no ST or T-wave changes noted. Overall, this EKG is unremarkable Medical Decision Making - Medical Decision Making Was pt. sent in by a medical professional or institution (, JESS, APPRAISAL SPECIALIST, urgent care, hospital, or usp...) When possible be specific @ -No Did you speak to anyone other than the patient for history (EMS, parent, family, police, friend...)? What history was obtained from this source @ -No Did you review nursing and triage notes (agree or disagree)? Why? @ -I reviewed and agree with nursing and triage notes Were old charts reviewed (outside hosp., previous admission, EMS record, old EKG, old radiological studies, urgent care reports/EKG's, usp records)? Report findings @ -No old charts were reviewed Differential Diagnosis (chest pain, altered mental status, abdominal pain women, abdominal pain men, vaginal bleeding, musculoskeletal, weakness, fever, dyspnea, syncope, headache, dizziness, GI bleed, back pain, seizure, CVA, palpatations, mental health)? @ -Differential chest pain EKG interpreted by me (3pts min.). @ -See above X-rays interpreted by me (1pt min.). @ -Chest x-ray shows no acute processes CT interpreted by me (1pt min.). @ -None done U/S interpreted by me (1pt. min.). @ -None done What testing was considered but not performed or refused? (CT, X-rays, U/S, labs)? Why? @ -None What meds were considered but not given or refused? Why? @ -None Was smoking cessation discussed for >3mins.? @ -No Were there social determinants of health that impacted care today? How? (Homelessness, low income, unemployed, alcoholism, drug addiction, transportation, low edu. Level, literacy, decrease access to med. care, [facility], rehab)? @ -No Was there de-escalation of care discussed even if they declined (Discuss DNR or withdrawal of care, Hospice)? DNR status @ -No What co-morbidities impacted this encounter? (DM, HTN, Smoking, COPD, CAD, Cancer, CVA, ARF, Chemo, Hep., AIDS, mental health diagnosis, sleep apnea, morbid obesity)? @ -[place], [place], renal disease Was patient admitted / discharged? Hospital course, mention meds given and route, prescriptions, significant lab abnormalities, going to OR and other per tinent info. @ -68-year-old female presents with symptoms concerning for acute coronary syndrome. She also has hypertension. Patient takes multiple antihypertensive medications. Laboratory evaluation obtained. Labs within acceptable limits. Troponins negative. Brain nitric peptide is 828. Chest x-ray shows no acute processes. EKG is unremarkable. Patient reevaluated at 6:42 PM states that her symptoms have resolved. Patient given dose of Catapres. Case was discussed with Dr. Chi who manage patient's blood pressure patient will be admitted for*troponins, cardiac monitoring cardiology consultation. Did you discuss the management of the patient with other professionals (professionals i.e. , PA, APPRAISAL SPECIALIST, lab, RT, psych nurse, social work assistant, dietitian, teacher, chief knowledge officer, family service caseworker)? Give summary @ -See above. Case also discussed with hospitalist for admission Was critical care preformed (if so, how long)? @ -No Undiagnosed new problem with uncertain prognosis? @ -No Drug Therapy requiring intensive monitoring for toxicity (Heparin, Nitro, Insulin, Cardizem)? @ -No Were any procedures done? @ -No Diagnosis/symptom? Acute, or Chronic, or Acute on Chronic? Uncomplicated (without systemic symptoms) or Complicated (systemic symptoms)? @ -Chest pain Side effects of treatment? @ -No Exacerbation, Progression, or Severe Exacerbation? @ -No Poses a threat to life or bodily function? How? (Chest pain, [place], [place], pneumonia, PE, COPD, DKA, ARF, appy, cholecystitis, CVA, Diverticulitis, Homicidal, Suicidal, threat to staff... and all critical care pts) @ -yes - Lab Data Result diagrams: 07/06/24 15:34 07/06/24 15:34 Lab Results 07/06/24 07/06/24 07/06/24 Range/Units 15:34 15:34 15:34 WBC 6.5 (3.8-10.6) k/uL RBC 3.75 L (3.80-5.40) m/uL Hgb 11.5 (11.4-16.0) gm/dL Hct 35.4 (34.0-46.0) % MCV 94.4 (80.0-100.0) fL MCH 30.8 (25.0-35.0) pg MCHC 32.6 (31.0-37.0) g/dL RDW 12.2 (11.5-15.5) % Plt Count 219 (150-450) k/uL MPV 8.5 Neutrophils % 61 % Lymphocytes % 28 % Monocytes % 5 % Eosinophils % 4 % Basophils % 1 % Neutrophils # 3.9 (1.3-7.7) k/uL Lymphocytes # 1.8 (1.0-4.8) k/uL Monocytes # 0.3 (0-1.0) k/uL Eosinophils # 0.2 (0-0.7) k/uL Basophils # 0.1 (0-0.2) k/uL Sodium 139 (137-145) mmol/L Potassium 4.1 (3.5-5.1) mmol/L Chloride 107 (98-107) mmol/L Carbon Dioxide 26 (22-30) mmol/L Anion Gap 6 mmol/L BUN 27 H (7-17) mg/dL Creatinine 1.40 H (0.52-1.04) mg/dL Est GFR (CKD-EPI)AfAm 44 (>60 ml/min/1.73 sqM) Est GFR (CKD-EPI)NonAf 38 (>60 ml/min/1.73 sqM) Glucose 95 (74-99) mg/dL Calcium 9.8 (8.4-10.2) mg/dL Magnesium 1.9 (1.6-2.3) mg/dL Total Bilirubin 0.9 (0.2-1.3) mg/dL AST 19 (14-36) U/L ALT 11 (4-34) U/L Alkaline Phosphatase 77 (38-126) U/L Troponin I <0.012 (0.000-0.034) ng/mL NT-Pro-B Natriuret Pep 828 pg/mL Total Protein 9.3 H (6.3-8.2) g/dL Albumin 4.5 (3.5-5.0) g/dL Disposition Clinical Impression: Chest pain Disposition: ADMITTED IP TO THIS HOSP Condition: Fair Referrals: Domenico Cruz MD [Primary Care Provider] - 1-2 days Decision Time: 18:43
--- NOTE | 2024-07-06 15:56 | XR ---
EXAMINATION TYPE: XR chest 2V DATE OF EXAM: 07/06/2024 3:48 PM COMPARISON: Chest radiographs from 03/15/2019. CLINICAL INDICATION: Female, 68 years old with history of Chest Pain; [facility] TECHNIQUE: XR chest 2V Frontal and lateral views of the chest. FINDINGS: Lungs/Pleura: There is no evidence of pleural effusion, focal consolidation, or pneumothorax. Pulmonary vascularity: Unremarkable. Heart/mediastinum: Cardiomediastinal silhouette is unremarkable. Musculoskeletal: No acute osseous pathology. IMPRESSION: No acute cardiopulmonary disease/process. [facility], , 07/06/2024 3:53 PM
[2024-07-06 15:59] LABS: ALT 11 U/L (4-34); AST 19 U/L (14-36); African American GFR (CKD) 44 (>60 ml/min/1.73 sqM); Albumin 4.5 g/dL (3.5-5.0); Alkaline Phosphatase 77 U/L (38-126); Anion Gap 6 mmol/L; Blood Urea Nitrogen 27 mg/dL (7-17); Calcium 9.8 mg/dL (8.4-10.2); Carbon Dioxide 26 mmol/L (22-30); Chloride 107 mmol/L (98-107); Glucose 95 mg/dL (74-99); Magnesium 1.9 mg/dL (1.6-2.3); Non-African American GFR(CKD) 38 (>60 ml/min/1.73 sqM); Potassium 4.1 mmol/L (3.5-5.1); Sodium 139 mmol/L (137-145); Total Bilirubin 0.9 mg/dL (0.2-1.3); Total Protein 9.3 g/dL (6.3-8.2)
[2024-07-06 16:07] LABS: NT-Pro-B-Type Natriuretic Pept 828 pg/mL
[2024-07-06] MEDS: MORPHINE SULFATE 4 MG/ML SYRINGE IV STA (16:35)
[2024-07-06] MEDS: cloNIDine HCL 0.1 MG TAB PO STA (16:35)
[2024-07-06] MEDS ORDERED: NITROGLYCERIN SL TABS 0.4 MG TAB SUBLINGUAL PRN (18:29)
[2024-07-06] MEDS: ASPIRIN 81 MG PO STA (20:04)
[2024-07-06] MEDS: PANTOPRAZOLE 40 MG TABLET PO SCH (20:16)
[2024-07-06] MEDS: carvediloL 12.5 MG TAB PO SCH (20:17)
[2024-07-06] MEDS: LOSARTAN 50 MG TAB PO SCH (20:17)
[2024-07-06] MEDS: NON FORMULARY DRUG (Cariprazine Hcl [Vraylar] 3 MG Capsule) PO SCH (20:19)
[2024-07-06] MEDS ORDERED: hydrALAZINE HCL 20 MG/ML 1 ML VIAL IVP PRN (20:22)
--- NOTE | 2024-07-06 20:33 | P.HPIM ---
History of Present Illness H&P Date: 07/06/24 Chief Complaint: Chest pain History of present illness; 68-year-old female with CKD stage IIIb, hyperlipidemia, hypertension, GERD, history of AZ, and history of PE presents with complaints of chest pain. Reports earlier today she went to the office to receive Aranesp and was found to have significant hypertension with systolic greater than 200. States at that time she was told to come to the emergency department for further evaluation. Reports she also has been having chest pain that comes and goes. States the chest pain is located centrally and sometimes radiates to the left arm and to the back. Reports when she arrived to the emergency department today the chest pain was 6 out of 10, but at time of interview reports the chest pain is 0 out of 10. Reports she gets this chest pain while exerting herself as well as at rest. Denies chest pain gets worse with deep breaths. Also admits to shortness of breath which she says is gotten worse over the last few weeks. Reports she usually can take the garbage out without getting short of breath, but over the last few weeks she has been getting short of breath while taking out the garbage. Also admits to dizziness and a headache, but reports having a headache is not out of the usual for her and this 1 feels like previous when she has had. Also admits to unintentional 40 pound weight loss over the last 5 months. Denies palpitations, nausea, vomiting, diarrhea, constipation, abdominal pain, diaphoresis, and lower extremity swelling. Family history: noncontributory Social history: Never smoker, no alcohol or drug use reported Surgical history: Cholecystectomy, hysterectomy, tonsillectomy, heart c atheterization in 2019 without stent placement Imaging: -EKG done in the ER showed heart rate of 76 bpm, no ST segment elevation or depression seen, no T-wave inversions seen. Sinus rhythm, QTc 410 ms. -ER CXR: No acute cardiopulmonary process. REVIEW OF SYSTEMS: As stated above in HPI. The rest of the 14-point review of systems is negative. PHYSICAL EXAMINATION: GENERAL: The patient is alert and oriented x3, not in any acute distress. Well developed, well nourished. HEENT: Pupils are round and equally reacting to light. EOMI. No scleral icterus. No conjunctival pallor. Normocephalic, atraumatic. CARDIOVASCULAR: S1 and S2 present. No murmurs, rubs, or gallops. PULMONARY: Chest is clear to auscultation b/l, no wheezing or crackles. ABDOMEN: Soft, nontender, nondistended, normoactive bowel sounds. No palpable organomegaly. MUSCULOSKELETAL: No joint swelling or deformity. EXTREMITIES: No cyanosis, clubbing, or pedal edema. NEUROLOGICAL: Gross neurological examination did not reveal any focal deficits. SKIN: No rashes. Assessment:68-year-old female with hyperlipidemia, hypertension, GERD, history of AZ, and history of PE presents with complaints of chest pain. i discussed case with ED doctor and accepted the admission for atypical chest pain rule out acute coronary syndrome admitted under observation with anticipated length of stay less than 2 midnights Plan: #Atypical chest pain: -Troponin less than 0.012, BNP 828 check lipid -EKG showed heart rate of 76, sinus rhythm, no ST segment elevation or depressio n -Cardiology consulted -Heart score 4, moderate score, risk of major cardiac event of 12 to 16.6% -Echo ordered Received aspirin 325 mg, Continue with aspirin 81 mg daily Check lipid panel Nitro sublingual as needed for chest pain Cardiac monitoring Monitor vital signs Supplemental oxygen as needed Chest x-ray no acute cardiopulmonary process #Hypertensive urgency: -ED gave clonidine 0.1 mg p.o. once -Continue home carvedilol 25 mg p.o. twice daily, losartan 50 mg p.o. twice daily, and torsemide 20 mg p.o. daily -Continue to monitor #CKD stage IIIb: -Nonoliguric -Normally follows with Dr. Chi who is aware the patient is hospitalized -Difficult to discern baseline creatinine based on data available, creatinine today 1.4 and previous creatinine from April of this year 1.68 -Continue oral fluid hydration #History of CAD: -NSTEMI in 2019 for which she received a cardiac cath without stent placement at [facility] #Hyperlipidemia: -Does not take statin at home # Anxiety: -Continue home Valium -Patient normally takes cariprazine at home, we do not supply that here, will add additional medication if needed F: None E: None N: Heart healthy diet A: Normal ambulates unassisted DVT ppx: Heparin SQ GI ppx: Protonix 40 mg p.o. twice daily Dispo: Pending cardiac clearance and resolution of symptoms, likely 1 midnight stay Ashan Verito MD PGY-1 FM Dictation was produced using [employer] dictation software. please excuse any grammatical, word or spelling errors. Past Medical History Past Medical History: Cancer, GERD/Reflux, Hyperlipidemia, Hypertension, Myocardial Infarction (AZ), Pulmonary Embolus (PE), Renal Disease Additional Past Medical History / Comment(s): Liver aneurysm, heart murmer, hiatal hernia, divertiulitis, anemia, mult myeloma, Last Myocardial Infarction Date:: 2017 History of Any Multi-Drug Resistant Organisms: None Reported Past Surgical History: Adenoidectomy, Cholecystectomy, Heart Catheterization, Hysterectomy, Orthopedic Surgery, Tonsillectomy, Tubal Ligation Additional Past Surgical History / Comment(s): HAMMER TOE SURGERY. liver coils placed for aneurysm, D&C Past Anesthesia/Blood Transfusion Reactions: Motion Sickness Additional Past Anesthesia/Blood Transfusion Reaction / Comment(s): SEVERELY claustrophobia Past Psychological History: Anxiety, Depression Smoking Status: Never smoker - Past Family History Mother Family Medical History: No Reported History Father Family Medical History: No Reported History Medications and Allergies Home Medications Medication Instructions Recorded Confirmed Type Pantoprazole Sodium [Protonix] 40 mg PO BID 03/08/19 07/06/24 History Losartan [Cozaar] 50 mg PO BID 12/09/23 07/06/24 History carvediloL 25 mg PO BID 12/09/23 07/06/24 History Torsemide [Demadex] 20 mg PO DAILY 12/30/23 07/06/24 History Cariprazine HCl [Vraylar] 3 mg PO HS 07/06/24 07/06/24 History Ergocalciferol [Vitamin D2 (1250 1,250 mcg PO FR 07/06/24 07/06/24 History Mcg = 93379 Iu)] HYDROcodone/APAP 7.5-325MG [Isom 1 tab PO TID PRN 07/06/24 07/06/24 History 7.5-325] diazePAM [Valium] 2 mg PO TID PRN 07/06/24 07/06/24 History Allergies Allergy/AdvReac Type Severity Reaction Status Date / Time oseltamivir phosphate Allergy Mild Rash/Hives Verified 07/06/24 18:27 [From Tamiflu] gentamicin Allergy SOB AND Verified 07/06/24 18:27 HIVES/RED MAN'S vancomycin Allergy SOB AND Verified 07/06/24 18:27 HIVES/RED MAN'S Physical Exam Vitals: Vital Signs Temp Pulse Resp BP Pulse Ox 07/06/24 18:00 70 16 157/95 95 07/06/24 17:00 71 16 197/105 95 07/06/24 16:10 80 16 219/123 96 07/06/24 15:29 80 20 230/159 100 07/06/24 14:30 98.3 F 78 18 199/133 98 Intake and Output 07/06/24 07/06/24 07/06/24 06:59 14:59 22:59 Other: Weight 66.678 kg Results CBC & Chem 7: 07/06/24 15:34 07/06/24 15:34 Labs: Abnormal Lab Results - Last 24 Hours (Table) 07/06/24 07/06/24 Range/Units 15:34 15:34 RBC 3.75 L (3.80-5.40) m/uL BUN 27 H (7-17) mg/dL Creatinine 1.40 H (0.52-1.04) mg/dL Total Protein 9.3 H (6.3-8.2) g/dL Assessment and Plan Assessment: I have seen and evaluated the patient today. I Discussed the case with the resident and agree with the resident's findings I edited the assessment and plan as necessary as documented in the resident's note.
[2024-07-06] MEDS: diazePAM 2 MG TAB PO PRN (21:58)
[2024-07-06] MEDS: HEPARIN SODIUM,PORCINE 5,000 UNIT/ML 1 ML VIAL SQ SCH (23:49)
[2024-07-07] MEDS: ASPIRIN 81 MG PO SCH (07:43)
[2024-07-07] MEDS: TORSEMIDE 20 MG TAB PO SCH (07:44)
[2024-07-07] MEDS ORDERED: DOBUTamine DRIP for NUC MED 500 MG/250 ML BAG IV ONE (08:00)
[2024-07-07] MEDS ORDERED: DOBUTamine DRIP for NUC MED 500 MG in DEXTROSE/WATER 1 250ML.BAG IV PRN (08:58)
[2024-07-07] MEDS ORDERED: ASPIRIN 325 MG TAB PO SCH (09:00)
[2024-07-07 09:39] LABS: INR 1.1 (<1.2); Partial Thromboplastin Time 34.4 sec (22.0-30.0); Prothrombin Time 11.7 sec (10.0-12.5)
[2024-07-07 10:34] LABS: Chol/HDL Ratio 7.11 Ratio; LDL Cholesterol,Calculated 156.3 mg/dL (0.0-131.0)
[2024-07-07 10:55] VITALS: BMI 22.4
[2024-07-07] MEDS ORDERED: ATROPINE SULFATE 0.1 MG/ML 10ML SYRINGE ONE (12:00)
[2024-07-07] MEDS ORDERED: METOPROLOL TARTRATE 5 MG/5 ML VIAL IVP ONE (12:05)
--- NOTE | 2024-07-07 12:14 | P.CRDCN ---
History of Present Illness History of present illness: HISTORY OF PRESENT ILLNESS: This is a 68-year-old female with a past medical history significant for minimal CAD, hypertension, and CKD. Patient used to follow in the office with Dr. Pizarro but has not been seen since 2019. We have been asked to see the patient in consultation for hypertension and chest pain. Patient examined at the bedside. Patient states that she was getting her Aranesp shot yesterday when the medical staff noticed that her blood pressure was greater than 200 systolic. She was directed to come to the emergency room. Patient states that her blood pressures have been labile recently. She states 1 day she can wake up and her blood pressure is 150 and the next day is around 200. Patient also reports she has been having shortness of breath that is worse than normal recently. She also reports having chest pain for the past couple months that appears to be random and not exertionally related. She states sometimes the pain can last for 15 minutes and sometimes it can last for an hour. Patient states that she has not been very active recently. She reports generalized weakness especially in her legs and recent unintentional weight loss. DIAGNOSTICS: - EKG reveals sinus bradycardia with no signs of acute ischemia - Chest xray negative for acute process - Laboratory data: WBC 6.5. Hemoglobin 11.5. Platelet count 219. Sodium 139. Potassium 4.1. BUN 27. Creatinine 1.4. - Current home cardiac medications include losartan 50 mg twice a day, Demadex 20 mg daily, carvedilol 25 mg twice a day - Most recent echocardiogram obtained in 2018 revealing 45% EF, inferior and septal hypokinesis, mild MR, mild TR - Cardiac catheterization history: 2018 revealing minimal CAD - Patient underwent stress testing in October 2019 which was negative for ischemia REVIEW OF SYSTEMS: At the time of my exam: CONSTITUTIONAL: Denies fever or chills. HEENT: Denies blurred vision, vision changes, or eye pain. Denies hemoptysis CARDIOVASCULAR: Denies chest pain. Denies orthopnea. Denies PND. Denies palpitations RESPIRATORY: Denies shortness of breath. GASTROINTESTINAL: Denies abdominal pain. Denies nausea or vomiting. HEMATOLOGIC: Denies bleeding disorders. GENITOURINARY: Denies any blood in urine. SKIN: Denies pruitis. Denies rash. PHYSICAL EXAM: VITAL SIGNS: Reviewed. GENERAL: Well-developed in no acute distress. HEENT: Head is normocephalic. Pupils are equal, round. Sclerae anicteric. Mucous membranes of the mouth are moist. Neck supple. No JVD or thyromegaly LUNGS: Respirations even and unlabored. Lungs essentially clear to auscultation bilaterally. HEART: Regular rate and rhythm. S1 and S2 heard. ABDOMEN: Soft. Nondistended. Nontender. EXTREMITIES: Normal range of motion. No clubbing or cyanosis. Peripheral pulses intact. No lower extremity edema NEUROLOGIC: Awake and alert. Oriented x 3. ASSESSMENT: Hypertensive emergency Chest pain, troponin negative x 3 Minimal CAD, per cath in 2019 Chronic kidney disease Hyperlipidemia, LDL 156 Unintentional weight loss PLAN: An acute coronary event has been ruled out Obtain 2D echo to assess cardiac structure and function Resume home cardiac medications Continue to monitor blood pressure Patient to undergo dobutamine stress echo today Further recommendations pending patient course Nurse practitioner note has been reviewed by physician. Signing provider agrees with the documented findings, assessment, and plan of care documented by BOX SEALING MACHINE CATCHER as a scribe. Past Medical History Past Medical History: Cancer, GERD/Reflux, Hyperlipidemia, Hypertension, Myocardial Infarction (ND), Pulmonary Embolus (PE), Renal Disease Additional Past Medical History / Comment(s): Liver aneurysm, heart murmer, hiatal hernia, divertiulitis, anemia, mult myeloma, Last Myocardial Infarction Date:: 2017 History of Any Multi-Drug Resistant Organisms: None Reported Past Surgical History: Adenoidectomy, Cholecystectomy, Heart Catheterization, Hysterectomy, Orthopedic Surgery, Tonsillectomy, Tubal Ligation Additional Past Surgical History / Comment(s): HAMMER TOE SURGERY. liver coils placed for aneurysm, D&C Past Anesthesia/Blood Transfusion Reactions: Motion Sickness Additional Past Anesthesia/Blood Transfusion Reaction / Comment(s): SEVERELY claustrophobia Past Psychological History: Anxiety, Depression Smoking Status: Never smoker - Past Family History Mother Family Medical History: No Reported History Father Family Medical History: No Reported History Medications and Allergies Home Medications Medication Instructions Recorded Confirmed Type Pantoprazole Sodium [Protonix] 40 mg PO BID 03/08/19 07/06/24 History Losartan [Cozaar] 50 mg PO BID 12/09/23 07/06/24 History carvediloL 25 mg PO BID 12/09/23 07/06/24 History Torsemide [Demadex] 20 mg PO DAILY 12/30/23 07/06/24 History Cariprazine HCl [Vraylar] 3 mg PO HS 07/06/24 07/06/24 History Ergocalciferol [Vitamin D2 (1250 1,250 mcg PO FR 07/06/24 07/06/24 History Mcg = 83364 Iu)] HYDROcodone/APAP 7.5-325MG [[place] 1 tab PO TID PRN 07/06/24 07/06/24 History 7.5-325] diazePAM [Valium] 2 mg PO TID PRN 07/06/24 07/06/24 History Allergies Allergy/AdvReac Type Severity Reaction Status Date / Time oseltamivir phosphate Allergy Mild Rash/Hives Verified 07/06/24 18:27 [From Tamiflu] gentamicin Allergy SOB AND Verified 07/06/24 18:27 HIVES/RED MAN'S vancomycin Allergy SOB AND Verified 07/06/24 18:27 HIVES/RED MAN'S Physical Exam Vitals: Vital Signs Temp Pulse Pulse Resp BP BP Pulse Ox 07/07/24 07:40 98 F 67 17 165/82 96 07/07/24 03:55 98.4 F 64 16 150/84 95 07/06/24 23:50 67 18 156/80 96 07/06/24 21:30 98.1 F 74 18 158/90 96 07/06/24 21:18 64 18 156/90 96 07/06/24 20:56 65 14 168/95 07/06/24 20:07 70 18 190/111 07/06/24 18:00 70 16 157/95 95 07/06/24 17:00 71 16 197/105 95 07/06/24 16:10 80 16 219/123 96 07/06/24 15:29 80 20 230/159 100 07/06/24 14:30 98.3 F 78 18 199/133 98 Intake and Output 07/06/24 07/07/24 07/07/24 22:59 06:59 14:59 Intake Total 60 Balance 60 Intake: Oral 60 Other: Voiding Method Toilet Toilet # Voids 2 Weight 66.678 kg 65.1 kg Results 07/06/24 15:34 07/06/24 15:34 Cardiac Enzymes 07/06/24 07/06/24 07/06/24 Range/Units 15:34 15:34 19:18 AST 19 (14-36) U/L Troponin I <0.012 0.021 (0.000-0.034) ng/mL 07/06/24 Range/Units 20:39 AST (14-36) U/L Troponin I 0.026 (0.000-0.034) ng/mL CBC 07/06/24 Range/Units 15:34 WBC 6.5 (3.8-10.6) k/uL RBC 3.75 L (3.80-5.40) m/uL Hgb 11.5 (11.4-16.0) gm/dL Hct 35.4 (34.0-46.0) % Plt Count 219 (150-450) k/uL Comprehensive Metabolic Panel 07/06/24 Range/Units 15:34 Sodium 139 (137-145) mmol/L Potassium 4.1 (3.5-5.1) mmol/L Chloride 107 (98-107) mmol/L Carbon Dioxide 26 (22-30) mmol/L BUN 27 H (7-17) mg/dL Creatinine 1.40 H (0.52-1.04) mg/dL Glucose 95 (74-99) mg/dL Calcium 9.8 (8.4-10.2) mg/dL AST 19 (14-36) U/L ALT 11 (4-34) U/L Alkaline Phosphatase 77 (38-126) U/L Total Protein 9.3 H (6.3-8.2) g/dL Albumin 4.5 (3.5-5.0) g/dL Current Medications Generic Name Dose Route Start Last Admin Trade Name Rickq PRN Reason Stop Dose Admin Aspirin 81 mg 07/07/24 09:00 07/07/24 07:43 Aspirin 81 Mg PO 81 mg DAILY [facility] Administration Carvedilol 25 mg 07/06/24 21:00 07/07/24 07:44 Carvedilol 12.5 Mg Tab PO 25 mg BID LEELA Administration Diazepam 2 mg 07/06/24 21:54 07/06/24 21:58 Diazepam 2 Mg Tab PO 2 mg TID PRN Administration aniexty/panic attacks Ergocalciferol 1,250 mcg 07/08/24 19:06 Ergocalciferol 1,250 Mcg (50,000 Iu) Capsule PO FR [facility] Heparin Sodium (Porcine) 5,000 unit 07/07/24 00:00 07/07/24 07:44 Heparin Sodium,Porcine 5,000 Unit/Ml 1 Ml Vial SQ 5,000 unit Q8HR LEELA Administration Losartan Potassium 50 mg 07/06/24 21:00 07/07/24 07:44 Losartan 50 Mg Tab PO 50 mg BID LEELA Administration Nitroglycerin 0.4 mg 07/06/24 18:29 Nitroglycerin Sl Tabs 0.4 Mg Tab SUBLINGUAL Q5M PRN Chest Pain Non-Formulary Medication 3 mg 07/06/24 21:00 07/07/24 07:37 Cariprazine Hcl [Vraylar] PO Not Given HS [facility] Pantoprazole Sodium 40 mg 07/06/24 21:00 07/07/24 07:44 Pantoprazole 40 Mg Tablet PO 40 mg BID LEELA Administration Torsemide 20 mg 07/07/24 09:00 07/07/24 07:44 Torsemide 20 Mg Tab PO 20 mg DAILY LEELA Administration Intake and Output 07/06/24 07/07/24 07/07/24 22:59 06:59 14:59 Intake Total 60 Balance 60 Intake: Oral 60 Other: Voiding Method Toilet Toilet # Voids 2 Weight 66.678 kg 65.1 kg 07/06/24 15:34 07/06/24 15:34
--- NOTE | 2024-07-07 12:31 | CA ---
Dobutamine Stress Echocardiogram Report Emily Morris Age: 68 Gender: F : 1955 Exam Date: 07/07/2024 12:53 Exam Location: [facility] Ordering Physician: Zoe Guerrero Referring Physician: [id number] Bank Note Designer: Shalonda Ortiz RDCS Technologist: Ht (in): 67 Wt (lb): 143 Procedure CPT: Indication: CP ICD-9 Codes: Rhythm: Patient History: Chest pain, short of breath and palpitations Cardiac Medications: Medications in past 24 hours: Contrast: Total Dose (mL): Stress Results Protocol: Dobutamine Peak Dose (???g/kg/min): 30 Duration (min:sec): Atropine:(mg) 1.0 Target HR: 128 Double Product: 60610 Resting HR: 78 Resting BP: 208 / 100 Peak HR: 117 Peak BP: 234 / 156 Max Predicted HR: 150 78 % Max Predicted HR Stress Summary: BP Response: Reason for Termination: Dr Carlene warren Cardiac Symptoms: None ECG Analysis Resting EKG: Stress EKG: Arrhythmia: Echo Analysis Base Echo Analysis: Low Echo Anaylsis: Peak Echo Analysis: Recovery Echo: MEASUREMENTS (Male/Female) Normal Values CONCLUSIONS Normal electrocardiogram with dobutamine No obvious wall motion abnormalities noted on the echo with dobutamine Dr. Ivan Concepcion MD (Electronically Signed) Final Date: 07 July 2024 12:30
[2024-07-07] MEDS: amLODIPine 5 MG TAB PO SCH (12:44)
[2024-07-07 12:50] VITALS: BP 149/93; PULSE 70; RESP 16; TEMP 98.3
[2024-07-07] MEDS ORDERED: hydrALAZINE HCL 25 MG TAB PO SCH (13:59)
--- NOTE | 2024-07-07 14:23 | P.DS ---
Providers Date of admission: 07/06/24 18:31 Expected date of discharge: 07/07/24 Attending physician: Sathish Valentine Consults: 07/06/24 18:30 Consult Physician Urgent Consulting Provider: Zafar Richard Consult Reason/Comments: chest pain, hypertension Do you want consulting provider notified?: Yes Primary care physician: Domenico Cruz MD Hospital Course: Discharge Diagnosis: #Atypical chest pain, ACS ruled out #Hypertensive urgency, resolved #CKD stage IIIb #History of CAD #Hyperlipidemia #Anxiety Hospital Course: This is a 68-year-old female with CKD stage IIIb, hyperlipidemia, hypertension, GERD, history of [place] and history of PE presenting with a chief complaint of chest pain. Patient is admitted to the hospital under internal medicine service for further evaluation of chest pain to rule out ACS. Laboratory evaluation in the ER shows troponin level less than 0.012 and BNP 828. Rest of the lab shows WBC count of 6.5, hemoglobin 11.5, sodium 139, potassium 4.1, BUN 27, creatinine 1.40, AST 90, ALT 11, ALP 77. EKG was unremarkable. Chest x-ray was unremarkable. Cardiology was consulted. Cardiac stress test was normal. Chest pain has resolved. Troponin continue to trend negative. Vital signs stable. Patient is medically optimized and hemodynamically stable for discharge to home. Discharge instructions: Patient to follow-up with PCP, nephrology and cardiology. 2D echocardiogram was performed with results still pending and patient advised to follow-up with cardiology in the office. Patient to continue with home medications as directed. Patient was provided with instructions on chest pain and hypertensive crisis. Vital signs reviewed. Gen: in no apparent distress, resting comfortably in bed Eyes: PERRL, no scleral injection or icterus HENT: normocephalic, atraumatic, good hearing acuity, moist mucous membranes Neck: full range of motion Resp: CTAB, no rales, rhonchi, or wheezes CVS: normal S1 and S2, no murmurs, rubs or gallops, no edema GI: soft, NTTP, ND, no hepatosplenomegaly : no suprapubic tenderness, no CVAT, solano catheter is not present MSK: no clubbing, no cyanosis, no noted contractures of extremities Skin: no noted rashes, petechiae; temperature of skin is appropriate Neuro: moving all extremities without signs of weakness, CN II-XII intact Psych: cooperative, euthymic mood, insight and judgment intact A total of 33 minutes of time were spent preparing this complex discharge summary. Patient was discharged on 07/07/2024 at 1406. I have seen and evaluated the patient today. Discussed with the resident and agree with the residents finding and plan as documented in the resident's note. Changes highlighted in blue font. Patient Condition at Discharge: Fair Plan - Discharge Summary Discharge Rx Participant: No New Discharge Prescriptions: New Aspirin 81 mg PO DAILY #90 tab Atorvastatin [Lipitor] 40 mg PO HS #90 tab Continue Pantoprazole Sodium [Protonix] 40 mg PO BID Losartan [Cozaar] 50 mg PO BID Torsemide [Demadex] 20 mg PO DAILY Cariprazine HCl [Vraylar] 3 mg PO HS carvediloL 25 mg PO BID diazePAM [Valium] 2 mg PO TID PRN PRN Reason: aniexty/panic attacks HYDROcodone/APAP 7.5-325MG [[place] 7.5-325] 1 tab PO TID PRN PRN Reason: Severe Pain (Scale 7 To 10) Ergocalciferol [Vitamin D2 (1250 Mcg = 49466 Iu)] 1,250 mcg PO FR Discharge Medication List Pantoprazole Sodium [Protonix] 40 mg PO BID 03/08/19 [History] Losartan [Cozaar] 50 mg PO BID 12/09/23 [History] carvediloL 25 mg PO BID 12/09/23 [History] Torsemide [Demadex] 20 mg PO DAILY 12/30/23 [History] Cariprazine HCl [Vraylar] 3 mg PO HS 07/06/24 [History] Ergocalciferol [Vitamin D2 (1250 Mcg = 19412 Iu)] 1,250 mcg PO FR 07/06/24 [History] HYDROcodone/APAP 7.5-325MG [[place] 7.5-325] 1 tab PO TID PRN 07/06/24 [History] diazePAM [Valium] 2 mg PO TID PRN 07/06/24 [History] Aspirin 81 mg PO DAILY #90 tab 07/07/24 [Rx] Atorvastatin [Lipitor] 40 mg PO HS #90 tab 07/07/24 [Rx] Follow up Appointment(s)/Referral(s): Fang Chi MD [STAFF PHYSICIAN] - 1 Week (please call to schedule. ) Bimal Pizarro MD [STAFF PHYSICIAN] - 1 Week (office will call you to schedule ) Domenico Cruz MD [Primary Care Provider] - 1-2 days (please call to schedule ) Patient Instructions/Handouts: Chest Pain (DC), Hypertensive Crisis (DC) Activity/Diet/Wound Care/Special Instructions: Please follow-up with your PCP, cardiology and nephrology. Your echocardiogram results will be discussed by cardiology in the office. Discharge Disposition: HOME SELF-CARE
[2024-07-07] MEDS ORDERED: ATORVASTATIN 40 MG TAB PO SCH (21:00)
--- NOTE | 2024-07-08 07:11 | CA ---
Transthoracic Echo Report Name: Emily Morris Age: 68 Gender: F : 1955 Exam Date: 07/07/2024 13:11 Exam Location: [facility] Ht (in): 67 Wt (lb): 143 Ordering Physician: Mau Sellers MD Attending/Referring Phys: Tin Container Straightener Shalonda Ortiz RDCS Procedure CPT: Indications: CP Cardiac Hx: Technical Quality: Good Contrast 1: Total Dose (mL): Contrast 2: Total Dose (mL): MEASUREMENTS (Male / Female) Normal Values 2D ECHO LV Diastolic Diameter PLAX 4.1 cm 4.2 - 5.9 / 3.9 - 5.3 cm LV Systolic Diameter PLAX 3.3 cm IVS Diastolic Thickness 1.3 cm 0.6 - 1.0 / 0.6 - 0.9 cm LVPW Diastolic Thickness 1.2 cm 0.6 - 1.0 / 0.6 - 0.9 cm LV Relative Wall Thickness 0.6 RV Internal Dim ED PLAX 2.0 cm LA Systolic Diameter LX 3.6 cm 3.0 - 4.0 / 2.7 - 3.8 cm LV Diastolic Volume MOD BP 50.5 cm??? 67 - 155 / 56 - 104 cm??? LV Systolic Volume MOD BP 23.4 cm??? 22 - 58 / 19 - 49 cm??? LV Ejection Fraction MOD BP 53.7 % >= 55 % LV Cardiac Index MOD BP 1376.4 cm???/min???m??? LV Diastolic Volume MOD 4C 56.8 cm??? LV Systolic Volume MOD 4C 23.9 cm??? LV Ejection Fraction MOD 4C 57.9 % LV Cardiac Index MOD 4C 1667.1 cm???/min???m??? LV Diastolic Length 4C 6.5 cm LV Systolic Length 4C 5.5 cm LV Diastolic Volume MOD 2C 44.1 cm??? LV Systolic Volume MOD 2C 22.5 cm??? LV Ejection Fraction MOD 2C 48.9 % LV Cardiac Index MOD 2C 1095.0 cm???/min???m??? LV Diastolic Length 2C 6.8 cm LV Systolic Length 2C 5.7 cm LA Volume 66.9 cm??? 18 - 58 / 22 - 52 cm??? LA Volume Index 38.2 cm???/m??? 16 - 28 cm???/m??? M-MODE Aortic Root Diameter MM 3.2 cm LA Systolic Diameter MM 3.9 cm LA Ao Ratio MM 1.2 AV Cusp Separation MM 1.9 cm DOPPLER MV Area PHT 2.6 cm??? Mitral E Point Velocity 56.0 cm/s Mitral A Point Velocity 83.5 cm/s Mitral E to A Ratio 0.7 MV Deceleration Time 292.3 ms TR Peak Velocity 219.1 cm/s TR Peak Gradient 19.2 mmHg Right Ventricular Systolic Press 22.6 mmHg FINDINGS Left Ventricle Left ventricular ejection fraction is estimated at 40-45 %. Mildly increased septal wall thickness. Mildly increased posterior wall thickness. Mildly decreased left ventricular ejection fraction. Right Ventricle Normal right ventricular size and function. Right ventricular systolic pressure within normal limits. Right Atrium Mild right atrial dilatation. Left Atrium Moderately increased left atrial volume. Mitral Valve Structurally normal mitral valve. Mild mitral regurgitation. Aortic Valve Trileaflet aortic valve. No aortic valve stenosis or regurgitation. Tricuspid Valve Structurally normal tricuspid valve. Mild tricuspid regurgitation. No tricuspid stenosis. Pulmonic Valve Structurally normal pulmonic valve. Trace pulmonic regurgitation. No pulmonic stenosis. Pericardium No pericardial or pleural effusion. Aorta Normal size aortic root and proximal ascending aorta. CONCLUSIONS Mildly impaired LV function with EF around 45% Mild mitral regurgitation and mild tricuspid regurgitation Normal pulmonary artery systolic pressure No pericardial effusion Previewed by: Dr. Ivan Concepcion MD (Electronically Signed) Final Date: 08 July 2024 07:11
[2024-07-08] MEDS ORDERED: ERGOCALCIFEROL 1,250 MCG (50,000 IU) CAPSULE PO SCH (19:06)
== END 2024-07-07 15:46 | disposition home or self-care (01) ==
LOC: EC 14:28 → 6NMEDSUR 18:31 → 3SCARD 20:33
PROVIDERS: ADMIT Student in an Organized Health Care Education/Training Program; ATTEND Student in an Organized Health Care Education/Training Program
DX: I16.1 Hypertensive emergency (principal); N18.32 Chronic kidney disease, stage 3b; I12.9 Hypertensive chronic kidney disease with stage 1 through stage 4 chronic kidney disease, or unspecified chronic kidney disease; I25.10 Atherosclerotic heart disease of native coronary artery without angina pectoris; D63.1 Anemia in chronic kidney disease; E78.5 Hyperlipidemia, unspecified; K21.9 Gastro-esophageal reflux disease without esophagitis; R63.4 Abnormal weight loss; F32.A Depression, unspecified; I25.2 Old myocardial infarction; F40.240 Claustrophobia; Z79.899 Other long term (current) drug therapy; Z86.711 Personal history of pulmonary embolism; Z88.1 Allergy status to other antibiotic agents; Z88.8 Allergy status to other drugs, medicaments and biological substances
CPT/HCPCS: 96372 ×2; 96374; 99285; 36415; 94760; 93005; 93306; 93351; 83880; 80061; 80053; 83735; 84484; 85025; 85610; 85730; 71046; G0378 ×3; J1250; J2270; J1644 ×2; J0461

== ENCOUNTER 2025-02-10 12:51 | Inpatient (IN) | payer MEDICARE, OTHER ==
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
[2025-02-10 13:10] LABS: Glucose,Whole Blood 95 mg/dL (70-110)
[2025-02-10 13:12] LABS: Basophils # (A) 0.09 10*3/uL (0.00-0.10); Eosinophils % (A) 4.5 %; HCT 32.4 % (37.2-46.3); HGB 10.4 g/dL (12.0-15.0); Lymphocytes # (A) 1.35 10*3/uL (0.90-5.00); Lymphocytes % (A) 30.5 %; MCH 28.6 pg (27.0-32.0); MCHC 32.1 g/dL (32.0-37.0); Mean Platelet Volume 11.2 fL (9.5-12.2); Monocytes # (A) 0.44 10*3/uL (0.20-1.00); Neutrophils # (A) 2.34 10*3/uL (1.80-7.70); Platelet Count 256 10*3/uL (140-440); RBC 3.64 10*6/uL (4.10-5.20); RDW 12.7 % (11.5-14.5); WBC 4.42 10*3/uL (4.50-10.00)
[2025-02-10 13:26] LABS: ALT 10 U/L (4-34); AST 16 U/L (14-36); African American GFR (CKD) 34 (>60 ml/min/1.73 sqM); Albumin 3.9 g/dL (3.5-5.0); Alkaline Phosphatase 63 U/L (38-126); Anion Gap 11 mmol/L; Blood Urea Nitrogen 30 mg/dL (7-17); Calcium 9.2 mg/dL (8.4-10.2); Carbon Dioxide 25 mmol/L (22-30); Chloride 102 mmol/L (98-107); Glucose 106 mg/dL (74-99); Magnesium 1.9 mg/dL (1.6-2.3); Non-African American GFR(CKD) 29 (>60 ml/min/1.73 sqM); Potassium 4.1 mmol/L (3.5-5.1); Sodium 138 mmol/L (137-145); Total Bilirubin 0.8 mg/dL (0.2-1.3); Total Protein 8.4 g/dL (6.3-8.2)
[2025-02-10] MEDS: MORPHINE SULFATE 4 MG/ML SYRINGE IVP STA (13:46)
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
[2025-02-10] MEDS: hydrALAZINE HCL 20 MG/ML 1 ML VIAL IVP STA (15:25)
[2025-02-10] MEDS: LORazepam 1 MG/0.5 ML VIAL IV STA (15:47)
[2025-02-10] MEDS ORDERED: NALOXONE 0.4 MG/ML 1 ML VIAL IV PRN (15:57)
[2025-02-10] MEDS ORDERED: ACETAMINOPHEN TAB 325 MG TAB PO PRN (15:57)
[2025-02-10] MEDS: HYDROcodone/APAP 7.5-325MG 1 EACH TAB PO PRN (17:06)
[2025-02-10] MEDS: PANTOPRAZOLE 40 MG TABLET PO SCH (17:06)
[2025-02-10] MEDS: carvediloL 12.5 MG TAB PO SCH (17:06)
[2025-02-10] MEDS: LOSARTAN 50 MG TAB PO SCH (20:54)
[2025-02-10] MEDS: hydrALAZINE HCL 25 MG TAB PO SCH (20:54)
[2025-02-10] MEDS: TORSEMIDE 20 MG TAB PO SCH (20:54)
[2025-02-10] MEDS: diazePAM 2 MG TAB PO SCH (20:54)
[2025-02-11] MEDS: LABETALOL 5 MG/ML VIAL MDV IVP STA (02:19)
[2025-02-11 07:20] LABS: Basophils # (A) 0.06 10*3/uL (0.00-0.10); Basophils % (A) 1.3 %; Eosinophils # (A) 0.18 10*3/uL (0.04-0.35); Eosinophils % (A) 3.8 %; HCT 30.7 % (37.2-46.3); HGB 9.5 g/dL (12.0-15.0); Lymphocytes # (A) 1.42 10*3/uL (0.90-5.00); Lymphocytes % (A) 30.1 %; MCH 28.1 pg (27.0-32.0); MCHC 30.9 g/dL (32.0-37.0); MCV 90.8 fL (80.0-97.0); Mean Platelet Volume 10.8 fL (9.5-12.2); Monocytes # (A) 0.46 10*3/uL (0.20-1.00); Monocytes % (A) 9.8 %; Neutrophils # (A) 2.58 10*3/uL (1.80-7.70); Neutrophils % (A) 54.8 %; Platelet Count 215 10*3/uL (140-440); RBC 3.38 10*6/uL (4.10-5.20); RDW 13.1 % (11.5-14.5); WBC 4.71 10*3/uL (4.50-10.00)
[2025-02-11] MEDS: SERTRALINE 50 MG TAB PO SCH (08:04)
[2025-02-11 09:04] LABS: ALT 9 U/L (4-34); AST 13 U/L (14-36); African American GFR (CKD) 26 (>60 ml/min/1.73 sqM); Albumin 3.4 g/dL (3.5-5.0); Alkaline Phosphatase 59 U/L (38-126); Anion Gap 8 mmol/L; Blood Urea Nitrogen 30 mg/dL (7-17); Carbon Dioxide 29 mmol/L (22-30); Chloride 103 mmol/L (98-107); Glucose 99 mg/dL (74-99); Non-African American GFR(CKD) 23 (>60 ml/min/1.73 sqM); Sodium 140 mmol/L (137-145); Total Bilirubin 0.7 mg/dL (0.2-1.3); Total Protein 7.5 g/dL (6.3-8.2)
[2025-02-11] MEDS: CEFDINIR 300 MG CAP PO SCH (10:06)
[2025-02-11] MEDS: ONDANSETRON 4 MG/2 ML VIAL IVP PRN (10:06)
[2025-02-11 10:13] LABS: Magnesium 1.7 mg/dL (1.6-2.3)
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
[2025-02-11 10:24] LABS: NT-Pro-B-Type Natriuretic Pept 5210 pg/mL
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
[2025-02-11] MEDS: LOSARTAN 25 MG TAB PO SCH (10:55)
[2025-02-11 13:20] LABS: Appearance,Urine Clear (Clear); Bilirubin,Urine Negative (Negative); Blood,Urine Small (Negative); Color,Urine Colorless; Glucose,Urine (UA) Negative (Negative); Hyaline Casts,Urine 16 /lpf (0-2); Ketones,Urine Negative (Negative); Leukocyte Esterase,Urine Negative (Negative); Mucus,Urine Rare /hpf; Nitrite,Urine Negative (Negative); Protein,Urine Negative (Negative); RBC,Urine 73 /hpf (0-5); Specific Gravity,Urine 1.007 (1.001-1.035); Squamous Epithelial Cell,Urine <1 /hpf (0-4); Urobilinogen,Urine <2.0 mg/dL (<2.0); WBC,Urine 3 /hpf (0-5)
[2025-02-11] MEDS: traMADol 50 MG TAB PO PRN (17:22)
[2025-02-12 01:45] LABS: Chol/HDL Ratio 6.81 Ratio; LDL Cholesterol,Calculated 137.1 mg/dL (0.0-131.0)
[2025-02-12 07:03] LABS: Basophils # (A) 0.06 10*3/uL (0.00-0.10); Basophils % (A) 1.3 %; Eosinophils # (A) 0.18 10*3/uL (0.04-0.35); HCT 30.6 % (37.2-46.3); HGB 9.5 g/dL (12.0-15.0); Lymphocytes % (A) 39.6 %; MCH 28.5 pg (27.0-32.0); MCV 91.9 fL (80.0-97.0); Mean Platelet Volume 11.5 fL (9.5-12.2); Monocytes # (A) 0.53 10*3/uL (0.20-1.00); Monocytes % (A) 11.7 %; Neutrophils # (A) 1.97 10*3/uL (1.80-7.70); Neutrophils % (A) 43.4 %; Platelet Count 222 10*3/uL (140-440); RBC 3.33 10*6/uL (4.10-5.20); RDW 13.1 % (11.5-14.5); WBC 4.54 10*3/uL (4.50-10.00)
[2025-02-12 07:19] LABS: African American GFR (CKD) 20 (>60 ml/min/1.73 sqM); Anion Gap 11 mmol/L; Blood Urea Nitrogen 33 mg/dL (7-17); Calcium 9.4 mg/dL (8.4-10.2); Carbon Dioxide 30 mmol/L (22-30); Chloride 98 mmol/L (98-107); Glucose 80 mg/dL (74-99); Non-African American GFR(CKD) 18 (>60 ml/min/1.73 sqM); Potassium 3.9 mmol/L (3.5-5.1); Sodium 139 mmol/L (137-145)
[2025-02-12] MEDS: DAPAGLIFLOZIN PROPANEDIOL 10 MG TABLET PO SCH (08:38)
[2025-02-12] MEDS: CEFDINIR 300 MG CAP PO SCH (08:38)
[2025-02-12] MEDS: TORSEMIDE 20 MG TAB PO SCH (08:38)
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
--- NOTE | 2025-02-12 11:24 | US ---
EXAMINATION TYPE: US kidneys/renal and bladder DATE OF EXAM: 02/12/2025 COMPARISON: 04/19/2019 CLINICAL INDICATION: Female, 69 years old with history of worsening renal function; TECHNIQUE: Grayscale imaging of the bilateral kidneys and urinary bladder: FINDINGS: EXAM MEASUREMENTS: Right Kidney: 11.2x4.6x3.7 cm Left Kidney: 10.2x5.8x4.6 cm limited scan due to overlying bowel Right Kidney: No hydronephrosis or masses seen Left Kidney: echogenic foci seen: 0.3cm Bladder: wnl Bilateral Jets seen: Yes There is no evidence for hydronephrosis at this point in time. No nephrolithiasis is seen. No fabrice s are identified. The urinary bladder is anechoic. IMPRESSION: 1. No solid renal mass or hydronephrosis. No evidence of medical renal disease. 2 tiny parenchymal calcification in the left kidney. 3. Unremarkable urinary bladder. [facility], Workstation: RABIA 02/12/2025 11:21 AM
[2025-02-12] MEDS: hydrALAZINE HCL 25 MG TAB PO SCH (15:22)
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
[2025-02-12] MEDS: HEPARIN SODIUM,PORCINE 5,000 UNIT/ML 1 ML VIAL SQ SCH (17:58)
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
[2025-02-12 23:58] LABS: % Iron Saturation 46.38 (12.00-45.00); Ferritin 82.4 ng/mL (10.0-291.0)
[2025-02-13] MEDS: diazePAM 2 MG TAB PO PRN (04:28)
[2025-02-13 06:28] LABS: Basophils # (A) 0.06 10*3/uL (0.00-0.10); Basophils % (A) 1.3 %; Eosinophils # (A) 0.24 10*3/uL (0.04-0.35); Eosinophils % (A) 5.2 %; HCT 29.4 % (37.2-46.3); HGB 9.1 g/dL (12.0-15.0); Lymphocytes # (A) 1.63 10*3/uL (0.90-5.00); MCV 90.5 fL (80.0-97.0); Mean Platelet Volume 10.8 fL (9.5-12.2); Monocytes # (A) 0.51 10*3/uL (0.20-1.00); Monocytes % (A) 10.9 %; Neutrophils # (A) 2.21 10*3/uL (1.80-7.70); Neutrophils % (A) 47.4 %; Platelet Count 199 10*3/uL (140-440); RBC 3.25 10*6/uL (4.10-5.20); RDW 13.1 % (11.5-14.5); WBC 4.66 10*3/uL (4.50-10.00)
[2025-02-13 07:58] LABS: African American GFR (CKD) 19 (>60 ml/min/1.73 sqM); Anion Gap 7 mmol/L; Blood Urea Nitrogen 36 mg/dL (7-17); Carbon Dioxide 31 mmol/L (22-30); Chloride 101 mmol/L (98-107); Glucose 96 mg/dL (74-99); Magnesium 1.9 mg/dL (1.6-2.3); Non-African American GFR(CKD) 17 (>60 ml/min/1.73 sqM); Sodium 139 mmol/L (137-145)
[2025-02-13] MEDS: ERGOCALCIFEROL 1,250 MCG (50,000 IU) CAPSULE PO SCH (09:19)
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
[2025-02-14] MEDS: TEMAZEPAM 7.5 MG CAP PO PRN (00:16)
[2025-02-14 07:38] LABS: African American GFR (CKD) 24 (>60 ml/min/1.73 sqM); Anion Gap 5 mmol/L; Blood Urea Nitrogen 34 mg/dL (7-17); Calcium 9.3 mg/dL (8.4-10.2); Carbon Dioxide 31 mmol/L (22-30); Chloride 102 mmol/L (98-107); Glucose 97 mg/dL (74-99); Non-African American GFR(CKD) 21 (>60 ml/min/1.73 sqM); Potassium 4.1 mmol/L (3.5-5.1); Sodium 138 mmol/L (137-145)
[2025-02-14 09:05] VITALS: BP 125/66; RESP 16; TEMP 98.3
[2025-02-14] MEDS: busPIRone HCl 10 MG TAB PO SCH (11:50)
[2025-02-14 12:06] LABS: Free Kappa Lt Chain Qnt, Serum 1.41 mg/dL (0.33-1.94); Free Lambda Lt Chain Qnt, Seru 51.37 mg/dL (0.57-2.63)
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
[2025-02-14 14:31] VITALS: PULSE 75
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
== END 2025-02-14 15:59 | disposition home health service (06) | DRG 312 ==
LOC: EC 12:51 → 3SCARD 15:57
PROVIDERS: ADMIT Internal Medicine; ATTEND Internal Medicine
DX: R55 Syncope and collapse (principal); N17.0 Acute kidney failure with tubular necrosis; I13.0 Hypertensive heart and chronic kidney disease with heart failure and stage 1 through stage 4 chronic kidney disease, or unspecified chronic kidney disease; I50.22 Chronic systolic (congestive) heart failure; I42.9 Cardiomyopathy, unspecified; I42.8 Other cardiomyopathies; D63.1 Anemia in chronic kidney disease; I16.0 Hypertensive urgency; N18.32 Chronic kidney disease, stage 3b; F32.A Depression, unspecified; N39.0 Urinary tract infection, site not specified; E55.9 Vitamin D deficiency, unspecified; K21.9 Gastro-esophageal reflux disease without esophagitis; E78.5 Hyperlipidemia, unspecified; F40.240 Claustrophobia; I25.2 Old myocardial infarction; Z79.899 Other long term (current) drug therapy; Z86.711 Personal history of pulmonary embolism; Z90.710 Acquired absence of both cervix and uterus; Z88.1 Allergy status to other antibiotic agents; Z88.8 Allergy status to other drugs, medicaments and biological substances; I25.5 Ischemic cardiomyopathy; Z87.19 Personal history of other diseases of the digestive system; Z98.51 Tubal ligation status; Z90.49 Acquired absence of other specified parts of digestive tract
CPT/HCPCS: 36415; 70450; 71045; 72125; 76770; 80048; 80053; 80061; 81001; 82088; 82728; 83036; 83540; 83550; 83735; 83835; 83880; 83883; 84244; 84439; 84443; 84484; 85025; 86334; 93005; 93270; 93880; 96374; 96375; 96376; 99285